=== PATIENT | female | born 1950 | race American Indian/Alaskan Native ===

== ENCOUNTER 2017-02-21 21:57 | Inpatient (IN) | payer MEDICAID, OTHER ==
[2017-02-21] MEDS ORDERED: Sodium Chloride 0.9% 1,000 ML IV STA ×2 (22:09→22:52)
[2017-02-21 22:26] LABS: BLOOD GAS HEMOGLOBIN 8.2 g/dL (11.7-17.4); CARBOXYHEMOGLOBIN 2.7 % (0.5-1.5); HHB 40.4 % (0-5); METHEMOGLOBIN 0.7 % (0.0-3.0); VENOUS BLOOD GAS BASE EXCESS 7.4 mmol/L (0.0-2.0); VENOUS BLOOD HGB O2 SAT 56.1 % (95.0-98.0); VENOUS BLOOD PH 7.39 (7.32-7.43)
[2017-02-21 22:40] LABS: BASO # 0.03 K/mm3 (0.0-2.0); BASO % 0.2 % (0.0-3.0); EOS # 0.1 (0.0-0.7); EOS % 0.3 % (1.5-5.0); GRAN # 15.02 (1.4-6.5); GRAN % 86.8 % (50.0-68.0); HEMATOCRIT 25.1 % (36.0-48.0); LYMPH # 1.1 (1.2-3.4); LYMPH % 6.1 % (22.0-35.0); MEAN CELL VOLUME 71.3 fl (80.0-105.0); MEAN CORPUSCULAR HEMOGLOBIN 21.9 pg (25.0-35.0); MEAN CORPUSCULAR HGB CONC 30.7 g/dl (31.0-37.0); MEAN PLATELET VOLUME 9.3 fl (7.0-11.0); MONO # 1.2 (0.1-0.6); MONO % 6.6 % (1.0-6.0); RED CELL DISTRIBUTION WIDTH 14.7 % (11.5-14.5); WHITE BLOOD COUNT 17.3 10^3/ul (4.5-11.0)
[2017-02-21 22:53] LABS: BILIRUBIN,TOTAL 0.5 mg/dL (0.2-1.3); POTASSIUM 4.3 mmol/L (3.6-5.0); TOTAL PROTEIN 8.3 g/dL (5.8-8.3)
[2017-02-21 22:54] LABS: CALCIUM 14.6 mg/dL (8.4-10.5)
[2017-02-21 22:55] LABS: TROPONIN I 0.3 ng/mL
[2017-02-21] MEDS ORDERED: Insulin Regular 1 UNITS/0.01 ML ML IV ONE (23:02)
--- NOTE | 2017-02-21 23:16 | ED PDOC ---
Arrival/HPI - General Chief Complaint: Altered Mental Status Time Seen by Provider: 02/21/17 22:08 Historian: Patient, Family (Son) EM Caveat: Altered Mental Status (Confusion ) - Critical Care Critical Care Minutes: Other (35 minutes ) - History of Present Illness Narrative History of Present Illness (Text): 02/21/17 22:20 66 year old female, whose past medical history includes diabetes, presents to the emergency department confused and complaining of abdominal pain. Patient's son reports she has not been feeling well for the past week and lives upstairs from him. He noticed that she was not acting herself and tonight was more confused. Patient is usual baseline A&O x3. Patient denies any fever, cough, nausea, vomiting, diarrhea, and any other complaints. HPI and ROS limited due to patient's Altered Mental Status of confusion. PMD: None Symptom Onset: Gradual Symptom Course: Unchanged Activities at Onset: Light Context: Home Past Medical History - Provider Review Nursing Documentation Reviewed: Yes - Infectious Disease Hx of Infectious Diseases: None - Cardiac Hx Hypertension: Yes - Endocrine/Metabolic Hx Diabetes Mellitus Type 1: Yes Hx Diabetes Mellitus Type 2: Yes - Psychiatric Hx Substance Use: No (unobtainable) - Anesthesia Hx Anesthesia: No Family/Social History - Physician Review Nursing Documentation Reviewed: Yes Family/Social History: No Known Family HX Smoking Status: Unknown If Ever Smoked Hx Alcohol Use: No (unobtainable) Hx Substance Use: No (unobtainable) Allergies/Home Meds Allergies/Adverse Reactions: Allergies Unobtainable Allergy (Verified 02/21/17 22:00) Home Medications: Home Meds Medication Instructions Recorded Confirmed Home Med [Home Med] 1 tab PO DAILY 02/21/17 02/21/17 Home Med [Home Med] 1 unit SC DAILY 02/21/17 02/21/17 Insulin Glargine,Hum.rec.anlog 1 unit SC DAILY 02/21/17 02/21/17 [Doreen Alexis] Review of Systems - Physician Review All systems were reviewed & negative as marked: Yes - Review of Systems Systems not reviewed;Unavailable: Altered Mental Status (Confusion) Constitutional: absent: Fevers, Other (Chills) Respiratory: absent: Cough Gastrointestinal: absent: Diarrhea, Nausea, Vomiting Physical Exam Vital Signs Reviewed: Yes Vital Signs Temp Pulse Resp BP Pulse Ox 02/22/17 02:21 96 H 18 111/69 97 02/22/17 02:10 118 H 138/72 02/22/17 01:11 99.9 F H 114 H 18 147/94 H 98 02/21/17 22:16 98.5 F 119 H 18 157/83 H 98 Temperature: Afebrile Blood Pressure: Hypertensive Pulse: Tachycardic Respiratory Rate: Normal Appearance: Positive for: Well-Appearing, Non-Toxic Pain Distress: None Mental Status: Positive for: Lethargic (follows some commands) Finger Stick Blood Glucose: 330 - Systems Exam Head: Present: Atraumatic, Normocephalic Pupils: Present: PERRL Extroacular Muscles: Present: EOMI Conjunctiva: Present: Normal Mouth: Present: Moist Mucous Membranes Neck: Present: Normal Range of Motion Respiratory/Chest: Present: Clear to Auscultation, Good Air Exchange. No: Respiratory Distress, Accessory Muscle Use Cardiovascular: Present: Tachycardic. No: Murmurs Abdomen: Present: Other (Questionable lower abdomal tenderness. Abdomen soft and warm. ). No: Distention Back: Present: Normal Inspection Upper Extremity: Present: Normal Inspection. No: Cyanosis, Edema Lower Extremity: Present: Normal Inspection. No: Edema Neurological: Present: Other (Non-focal, (+) Lethargic follows commands. ) Skin: Present: Other (Poor skin turgor) Psychiatric: Present: Alert, Normal Insight, Normal Concentration. No: Oriented x 3 Medical Decision Making ED Course and Treatment: 02/21/17 22: 20 Impression: 66 year old female presents complaining of abdominal pain. Patient was brought in for altered mental status. Plan: -- VBG -- CT Abd & Pelvis w/o IV Contrast -- CT Head w/o Contrast -- EKG -- Labs -- Chest X-ray -- Chest Two Views -- HumuLIN R -- IV Fluid -- Urine Culrine -- Urinalysis -- Reassess and disposition Progress Notes: EXAM: CT Head Without Intravenous Contrast Dictated and Authenticated by: Mary Coats MD 02/21/2017 11:35 PM IMPRESSION: No acute intracranial abnormality EXAM: CT Abdomen and Pelvis Without Intravenous Contras Dictated and Authenticated by: Mary Coats MD 02/21/2017 11:57 PM IMPRESSION: Left perirectal/pelvic mass contiguous with the lower uterus and bladder with obstruction of the distal left ureter, appearance is consistent with malignancy extension into the pelvic floor cannot be excluded; pelvic adenopathy; hepatic metastases; pulmonary metastases; gallstones CXR and Chest Two Views Impression: As read by me, NAD. Mass on her pelvic floor with metastases all over her abdomen, Likely rectal cancer metastasized. EKG shows Sinus Tachycardic at 123 BPM with T-wave flattening little depression on the V4,V5, V6. No ST Elevations. QTC 446. Interpreted by me. 02/22/17 00:11 Patient will be admitted for nonstemi electrolyte abnormality, metastatic rectal cancer, as well as hyperkalemia. 02/22/17 00:[address] Farmer Hospitalist, who is aware and agrees with the plan. Resident will be sent down. Patient started on Heprin. 02/22/17 00:34 Called and informed family of patient's current diagnosis and plan. Patient's family is aware and agrees with the plan. 02/22/17 02:21 Rectal exam showed trace heme positive, but no active bleeding. Will continue on Heprin. - Critical Care Critical Care Minutes: Other (35 minutes) - Lab Interpretations Lab Results: 02/21/17 22:15 02/21/17 22:15 Lab Results 02/22/17 00:00: Blood Type B POSITIVE, Antibody Screen Negative, Crossmatch See Detail, BBK History Checked No verified bt 02/21/17 22:15: pO2 28 L, ABG Carboxyhemoglobin 2.7 H, POC ABG HHb (Measured) 40.4 H, ABG Methemoglobin 0.7, VBG pH 7.39, VBG pCO2 55.0, VBG HCO3 33.3 H, VBG O2 Sat (Calc) 58.1, VBG Base Excess 7.4 H, VBG Hgb O2 Saturation 56.1 L, Hemoglobin 8.2 L 02/21/17 22:15: Sodium 135, Potassium 4.3, Chloride 92 L, Carbon Dioxide 34 H, Anion Gap 14, BUN 46 H, Creatinine 1.7 H, Est GFR ( Amer) 37, Est GFR ( Non-Af Amer) 30, Random Glucose 428 H*, Calcium 14.6 H*, Total Bilirubin 0.5, AST 64 H, ALT 69 H, Alkaline Phosphatase 243 H, Lactate Dehydrogenase 1883 H, Total Creatine Kinase 70, Troponin I 0.30 H*, Total Protein 8.3, Albumin 4.2, Globulin 4.1, Albumin/Globulin Ratio 1.0 L, Lipase 367 H 02/21/17 22:15: APTT 30.7 02/21/17 22:15: WBC 17.3 H, RBC 3.52, Hgb 7.7 L, Hct 25.1 L, MCV 71.3 L, MCH 21.9 L, MCHC 30.7 L, RDW 14.7 H, Plt Count 505 H, MPV 9.3, Gran % 86.8 H, Lymph % (Auto) 6.1 L, [place] % (Auto) 6.6 H, Eos % (Auto) 0.3 L, Baso % (Auto) 0.2, Gran # 15.02 H, Lymph # 1.1 L, [place] # 1.2 H, Eos # 0.1, Baso # 0.03 I have reviewed the lab results: Yes - RAD Interpretation Radiology Orders: 02/21/17 22:08 X-RAY [CHEST PORTABLE] [RAD] Stat 02/21/17 22:52 CHEST TWO VIEWS (PA/LAT) [RAD] Stat 02/21/17 22:53 ABD & PELVIS W/O PO OR IV CONT [CT] Stat HEAD W/O CONTRAST [CT] Stat - EKG Interpretation Interpreted by ED Physician: Yes Type: 12 lead EKG - Medication Orders Current Medication Orders: Acetaminophen (Tylenol 325mg Tab) 650 mg PO Q6H PRN PRN Reason: fever Last Admin: 02/23/17 19:17 Dose: 650 mg MAR Pain/Vitals Document 02/23/17 19:17 SENIOR BILLING CONSULTANT (Rec: 02/23/17 19:17 SENIOR BILLING CONSULTANT [id number]) Pain Reassessment Is This A Pain ReAssessment? No Sleep Is patient sleeping during reassessment? No Presence of Pain Presence of Pain No Atorvastatin Calcium (Lipitor) 40 mg PO DAILY [facility] Last Admin: 02/24/17 09:10 Dose: 40 mg Carvedilol (Coreg) 6.25 mg PO BID [facility] Last Admin: 02/24/17 09:10 Dose: 6.25 mg MAR Pulse and Blood Pressure Document 02/24/17 09:10 MV (Rec: 02/24/17 09:11 MV [place] [id number]) Blood Pressure Blood Pressure (100/60-150/90) 130/72 Ceftriaxone Sodium (Rocephin 1 Gram Ivpb) 1 gm in 100 mls @ 100 mls/hr IVPB DAILY [facility] PRN Reason: Protocol Last Admin: 02/24/17 09:09 Dose: 100 mls/hr eMAR Start Stop Document 02/24/17 09:09 MV (Rec: 02/24/17 09:10 MV [place] [id number]) Intravenous Solution Start Date 02/24/17 Start Time 09:09 End Date 02/24/17 End time 10:09 Total Infusion Time 60 Potassium Phosphate 15 mmole/ (Sodium Chloride) 1,005 mls @ 125 mls/hr IV .Q8H3M [facility] Last Admin: 02/24/17 13:07 Dose: 125 mls/hr eMAR Start Stop Document 02/24/17 13:07 MV (Rec: 02/24/17 13:07 MV [place] [id number]) Intravenous Solution Start Date 02/24/17 Start Time 13:07 End Date 02/24/17 End time 21:10 Total Infusion Time 483 Insulin Human Regular (Humulin R Low) 0 units SC ACHS [facility] PRN Reason: Protocol Last Admin: 02/24/17 12:29 Dose: 2 units MAR Blood Glucose Document 02/24/17 12:29 MV (Rec: 02/24/17 12:30 MV [place] [id number]) Blood Glucose Finger Stick Blood Glucose (70-120) 219 Subcutaneous Administrations Document 02/24/17 12:29 MV (Rec: 02/24/17 12:30 MV [place] [id number]) Charges for Administration # of Subcutaneous Administrations 1 Ondansetron HCl (Zofran Inj) 4 mg IVP Q6 PRN PRN Reason: Nausea/Vomiting Pantoprazole Sodium (Protonix Inj) 40 mg IVP DAILY [facility] Last Admin: 02/24/17 09:10 Dose: 40 mg IVP Administration Document 02/24/17 09:10 MV (Rec: 02/24/17 09:10 MV [place] [id number]) Charges for Administration # of IVP Administrations 1 Discontinued Medications Acetaminophen (Tylenol 650 Mg Supp) 650 mg STAT STA Stop: 02/22/17 11:40 Last Admin: 02/22/17 11:46 Dose: 650 mg MAR Pain/Vitals Document 02/22/17 11:46 MF (Rec: 02/22/17 11:47 MF [id number]) Pain Reassessment Is This A Pain ReAssessment? Yes Sleep Is patient sleeping during reassessment? Yes Presence of Pain Presence of Pain No Pain Scale Used Pain Scale Used T99.5 Vitals Temperature (97.6 F-99.6 F) 99.5 F Temperature Source Oral Acetaminophen (Tylenol 650 Mg Supp) 650 mg RC ONCE STA Stop: 02/22/17 22:59 Last Admin: 02/22/17 23:17 Dose: 650 mg MAR Pain/Vitals Document 02/22/17 23:17 VM (Rec: 02/22/17 23:19 VM [id number]) Pain Reassessment Is This A Pain ReAssessment? No Presence of Pain Presence of Pain No Vitals Temperature (97.6 F-99.6 F) 100.2 F Temperature Source Oral Aspirin (Ecotrin) 81 mg PO DAILY [facility] Last Admin: 02/22/17 10:52 Dose: Not Given Non-Admin Reason: NPO Clopidogrel Bisulfate (Plavix) 75 mg PO DAILY [facility] Last Admin: 02/22/17 01:50 Dose: 75 mg Heparin Sodium (Porcine) (Heparin) 4,000 units IV ONCE ONE PRN Reason: Protocol Stop: 02/22/17 00:08 Last Admin: 02/22/17 01:02 Dose: 4,000 units eMAR Start Stop Document 02/22/17 01:02 EQ (Rec: 02/22/17 01:03 EQ [email or web address] Intravenous Solution Start Date 02/22/17 Start Time 01:03 MAR aPTT Document 02/22/17 01:02 EQ (Rec: 02/22/17 01:03 EQ [email or web address] aPTT aPTT (secs) 30.7 Sodium Chloride (Sodium Chloride 0.9%) 1,000 mls @ 999 mls/hr IV .Q1H1M STA Stop: 02/21/17 23:09 Last Admin: 02/21/17 22:23 Dose: 999 mls/hr eMAR Start Stop Document 02/21/17 22:23 EQ (Rec: 02/21/17 22:23 EQ [email or web address] Intravenous Solution Start Date 02/21/17 Start Time 22:23 Sodium Chloride (Sodium Chloride 0.9%) 1,000 mls @ 999 mls/hr IV .Q1H1M STA Stop: 02/21/17 23:52 Last Admin: 02/21/17 23:47 Dose: 999 mls/hr eMAR Start Stop Document 02/21/17 23:47 EQ (Rec: 02/21/17 23:47 EQ [email or web address] Intravenous Solution Start Date 02/21/17 Start Time 23:47 Sodium Chloride (Sodium Chloride 0.9%) 1,000 mls @ 100 mls/hr IV .Q10H JUANA Last Admin: 02/22/17 03:00 Dose: 100 mls/hr eMAR Start Stop Document 02/22/17 03:00 SWE (Rec: 02/22/17 06:30 SWE [id number]) Intravenous Solution Start Date 02/22/17 Start Time 03:00 End Date 02/22/17 Heparin Sodium/Dextrose (Heparin 25,000 Units/250ml In D5w) 25,000 units in 250 mls @ 7.348 mls/hr IV .Q24H JUANA; 12 UNITS/KG/HR PRN Reason: Protocol Heparin Sodium/Sodium Chloride (Heparin 33952 Units/250ml 1/2 Normal Saline) 25 ,000 units in 250 mls @ 7.348 mls/hr IV .Q24H JUANA; 12 UNITS/KG/HR PRN Reason: Protocol Last Admin: 02/22/17 02:12 Dose: 12 units/kg/hr, 7.348 mls/hr eMAR Start Stop Document 02/22/17 02:12 EQ (Rec: 02/22/17 02:12 EQ [email or web address] Intravenous Solution Start Date 02/22/17 Start Time 02:12 MAR aPTT Document 02/22/17 02:12 EQ (Rec: 02/22/17 02:12 EQ [email or web address] aPTT aPTT (secs) 30.4 Titration Intervention Document 02/22/17 02:12 EQ (Rec: 02/22/17 02:12 EQ [email or web address] Titration Intake Waste Amount 0 Container Volume 250 Titration Dosing Titration Dose 12 IV Rate 7.348 Intake/Decrease Started Potassium Chloride 10 meq/ (Sodium Chloride) 1,005 mls @ 100 mls/hr IV .Q10H3M [facility] Last Admin: 02/22/17 23:52 Dose: 100 mls/hr eMAR Start Stop Document 02/22/17 23:52 (Rec: 02/22/17 23:52 [id number]) Intravenous Solution Start Date 02/22/17 Start Time 23:52 Pamidronate Disodium 60 mg/ (Sodium Chloride) 510 mls @ 127.5 mls/hr IVPB ONCE ONE Stop: 02/22/17 12:54 Last Admin: 02/22/17 14:53 Dose: 127.5 mls/hr Iron Sucrose 200 mg/ Sodium (Chloride) 110 mls @ 110 mls/hr IVPB MWF ONE Stop: 02/22/17 09:55 Last Admin: 02/22/17 10:53 Dose: Potassium Chloride 10 meq/ (Sodium Chloride) 1,005 mls @ 150 mls/hr IV .Q6H42M [facility] Last Admin: 02/23/17 08:40 Dose: 150 mls/hr eMAR Start Stop Document 02/23/17 08:40 SENIOR BILLING CONSULTANT (Rec: 02/23/17 08:41 SENIOR BILLING CONSULTANT [id number]) Intravenous Solution Start Date 02/23/17 Start Time 08:30 Potassium Phosphate 15 mmole/ (Sodium Chloride) 255 mls @ 42.5 mls/hr IVPB ONCE ONE Stop: 02/23/17 16:44 Last Admin: 02/23/17 12:41 Dose: 42.5 mls/hr eMAR Start Stop Document 02/23/17 12:41 SENIOR BILLING CONSULTANT (Rec: 02/23/17 12:41 SENIOR BILLING CONSULTANT [id number]) Intravenous Solution Start Date 02/23/17 Start Time 12:40 Magnesium Sulfate 2 gm/ Sodium (Chloride) 104 mls @ 102 mls/hr IV ONCE ONE Stop: 02/23/17 12:27 Last Admin: 02/23/17 13:36 Dose: 102 mls/hr eMAR Start Stop Document 02/23/17 13:36 SENIOR BILLING CONSULTANT (Rec: 02/23/17 13:36 SENIOR BILLING CONSULTANT [id number]) Intravenous Solution Start Date 02/23/17 Start Time 13:35 Insulin Human Lispro (Humalog Med) 0 units SC [facility] PRN Reason: Protocol Last Admin: 02/22/17 08:48 Dose: Insulin Human Regular (Humulin R) 10 units IV ONCE ONE Stop: 02/21/17 23:03 Last Admin: 02/21/17 23:47 Dose: 10 units eMAR Start Stop Document 02/21/17 23:47 EQ (Rec: 02/21/17 23:47 EQ [email or web address] Intravenous Solution Start Date 02/21/17 Start Time 23:47 MAR Blood Glucose Document 02/21/17 23:47 EQ (Rec: 02/21/17 23:47 EQ [email or web address] Blood Glucose Finger Stick Blood Glucose (70-120) 330 Metoprolol Tartrate (Lopressor) 25 mg PO BID STA Stop: 02/22/17 01:06 Last Admin: 02/22/17 01:50 Dose: Metoprolol Tartrate (Lopressor) 5 mg IVP STAT STA Stop: 02/22/17 01:48 Last Admin: 02/22/17 02:10 Dose: 5 mg IVP Administration Document 02/22/17 02:10 EQ (Rec: 02/22/17 02:11 EQ [email or web address] Charges for Administration # of IVP Administrations 1 JUN Pulse and Blood Pressure Document 02/22/17 02:10 EQ (Rec: 02/22/17 02:11 EQ [email or web address] Pulse Pulse Rate (60-90) 118 Blood Pressure Blood Pressure (100/60-150/90) 138/72 Potassium Chloride (Potassium Chloride Oral Soln) 40 meq PO ONCE ONE Stop: 02/22/17 07:51 Last Admin: 02/22/17 10:53 Dose: Not Given Non-Admin Reason: NPO - Scribe Statement The provider has reviewed the documentation as recorded by the Jen Calderon Provider Scribe Attestation: All medical record entries made by the Scribismael were at my direction and personally dictated by me. I have reviewed the chart and agree that the record accurately reflects my personal performance of the history, physical exam, medical decision making, and the department course for this patient. I have also personally directed, reviewed, and agree with the discharge instructions and disposition. Disposition/Present on Arrival - Present on Arrival Any Indicators Present on Arrival: Yes History of DVT/PE: No History of Uncontrolled Diabetes: Yes Urinary Catheter: No History of Decub. Ulcer: No History Surgical Site Infection Following: None - Disposition Have Diagnosis and Disposition been Completed?: Yes Diagnosis: Toxic metabolic encephalopathy Disposition: HOSPITALIZED Disposition Time: 04:00 Patient Plan: Admission Patient Problems: Current Active Problems Problem Status Onset Hypercalcemia Acute NSTEMI (non-ST elevated myocardial infarction) Acute Toxic metabolic encephalopathy Acute Condition: FAIR
--- NOTE | 2017-02-21 23:35 | CT ---
EXAM: CT Head Without Intravenous Contrast EXAM DATE/TIME: 02/21/2017 10:53 PM CLINICAL HISTORY: 66 years old, female; Signs and symptoms; Altered mental status/memory loss; Age related cognitive decline; Additional info: AMS TECHNIQUE: Axial computed tomography images of the head/brain without intravenous contrast. All CT scans at this facility use one or more dose reduction techniques, viz.: automated exposure control; ma/kV adjustment per patient size (including targeted exams where dose is matched to indication; i.e. head); or iterative reconstruction technique. COMPARISON: There are no prior studies for comparison. FINDINGS: Brain: There is mild dilatation of ventricles with compensatory dilatation of the left lateral ventricle. There is no midline shift. There is mild prominence of sulci and gyri. There is decreased attenuation in periventricular white matter. There are no focal masses. There are no focal hemorrhages. Tinoco-white differentiation is visualized. Ventricles: See above. Bones: Cranial vault is intact. Soft tissues: unremarkable Sinuses: There is no acute sinusitis. Ears and mastoids: Middle ears and mastoids are unremarkable. Orbits: Orbital contents are unremarkable. IMPRESSION: No acute intracranial abnormality
--- NOTE | 2017-02-21 23:57 | CT ---
EXAM: CT Abdomen and Pelvis Without Intravenous Contrast EXAM DATE/TIME: 02/21/2017 10:53 PM CLINICAL HISTORY: 66 years old, female; Pain; Abdominal pain; Acute; Additional info: Diffuse abdominal pain TECHNIQUE: Axial computed tomography images of the abdomen and pelvis without intravenous contrast. All CT scans at this facility use one or more dose reduction techniques, viz.: automated exposure control; ma/kV adjustment per patient size (including targeted exams where dose is matched to indication; i.e. head); or iterative reconstruction technique. MIP reconstructed images were created and reviewed. Coronal and sagittal reformatted images were created and reviewed. COMPARISON: There are no prior studies for comparison. FINDINGS: Artifacts: Streak artifact from the patient's hands and arms degrades image quality. Limitations: Evaluation is limited by lack of oral and intravenous contrast material Lower thorax: Heart size is normal. There is no pericardial effusion. There are multiple bilateral pulmonary nodules too numerous to count. There is dependent atelectasis. There are no effusions. ABDOMEN: Liver: The liver is enlarged. There are multiple hepatic masses to numerous to count. Gallbladder and bile ducts: Gallbladder is collapsed with calcified stones.There is mild prominence of the common duct. Pancreas: unremarkable Spleen: unremarkable Adrenals: There is nodular thickening of the adrenals. Kidneys and ureters: Right kidney and ureter are unremarkable. There is left pelvocaliectasis and ureterectasis. Dilated left ureter can be traced to a left pelvic mass Stomach and bowel: Stomach is incompletely distended. Rotation is normal. There is no small bowel obstruction. Small bowel is mildly distended with fluid and air. Ileocecal region is unremarkable.Colon is incompletely distended which limits evaluation. There is scattered diverticulosis there is a left pelvic mass contiguous with the rectum. Appendix: See stomach and bowel PELVIS: Bladder: Bladder is partially distended. There is mild mass effect on the base of the bladder on the left. Reproductive: Fundus of the uterus and adnexal regions are unremarkable. Subperitoneal space: There is inflammation and edema in the left pelvis and presacral space. There is asymmetry of the muscles of the pelvic floor. ABDOMEN and PELVIS: Intraperitoneal space: There is no free air or free fluid. Bones/joints: There are degenerative changes in the osseus structures. There are degenerative changes in the osseus structures. Soft tissues: Streak artifact limits evaluation of the pelvis. There is a mass in the left lower pelvis contiguous with the lower uterus and rectum. Mass appears to extend inferior to the base of the bladder on the left. There may be extension into the muscles of the left pelvic floor. There is a 3 x 1.8 cm hyperdense nodule in the left perineum Vasculature: There are vascular calcifications. Lymph nodes: There is left pelvic adenopathy. IMPRESSION: Left perirectal/pelvic mass contiguous with the lower uterus and bladder with obstruction of the distal left ureter, appearance is consistent with malignancy extension into the pelvic floor cannot be excluded; pelvic adenopathy; hepatic metastases; pulmonary metastases; gallstones Additional findings as described above.
[2017-02-22 00:50] LABS: PH,URINE 5.5 (4.7-8.0); URINE BILIRUBIN NEGATIVE (NEGATIVE); URINE BLOOD TRACE-INTACT (NEGATIVE); URINE GLUCOSE (UA) 500 mg/dL (NEGATIVE); URINE KETONE TRACE mg/dL (NEGATIVE); URINE LEUKOCYTE ESTERASE NEGATIVE Leu/uL (NEGATIVE); URINE PROTEIN 30 mg/dL (<30 mg/dL); URINE UROBILINOGEN 0.2 E.U./dL (<1 E.U./dL)
[2017-02-22 00:52] LABS: URINE APPEARANCE SL CLOUDY (CLEAR); URINE COLOR YELLOW (YELLOW)
[2017-02-22 01:14] LABS: URINE BACTERIA FEW (NEG); URINE EPITHELIAL CELLS 0 - 2 /hpf (0-5); URINE RBC 0 - 2 /hpf (0-2); URINE WBC 0 - 2 /hpf (0-6)
[2017-02-22] MEDS ORDERED: Heparin25000 units/250ml 1/2NS 25,000 UNITS/250 ML BAG IV SCH ×2 (01:15→01:47)
[2017-02-22] MEDS ORDERED: Sodium Chloride 0.9% 1,000 ML IV SCH (01:15)
[2017-02-22 01:42] VITALS: BMI 24.7
[2017-02-22] MEDS ORDERED: Heparin 25,000units in D5W/250 ML BAG IV SCH (01:45)
[2017-02-22] MEDS ORDERED: Metoprolol 1 mg/ml Inj IVP STA (01:47)
--- NOTE | 2017-02-22 02:02 | CP.PCM.CON ---
<Medardo Mcdowell - Last Filed: 02/22/17 02:43> History of Present Illness - History of Present Illness History of Present Illness: 66 year old female with unknown past medical history presents to the ED with AMS and lethargy. Per ED Nurse, the patient lives in the basement of a house with her son. 2 weeks ago patient went on vacation, and before leaving checked on his mother she was doing okay. After he returned today, the patient seemed to not be acting like her normal self. Unable to obtain a complete HPI due to AMS and lethargy. PMH: unable to obtain PSH: unable to obtain Allergies: unobtainable Medications: unable to obtain Social: unable to obtain Family History: unable to obtain Review of Systems - Review of Systems Review of Systems: unable to obtain ROS due to AMS Past Patient History - Infectious Disease Hx of Infectious Diseases: None - Past Social History Smoking Status: Unknown If Ever Smoked - CARDIAC Hx Hypertension: Yes - ENDOCRINE/METABOLIC Hx Diabetes Mellitus Type 1: Yes Hx Diabetes Mellitus Type 2: Yes - PSYCHIATRIC Hx Substance Use: No (unobtainable) - SURGICAL HISTORY Hx Surgeries: No - ANESTHESIA Hx Anesthesia: No Meds Allergies/Adverse Reactions: Allergies Allergy/AdvReac Type Severity Reaction Status Date / Time Unobtainable Allergy Verified 02/21/17 22:00 - Medications Medications: Current Medications Atorvastatin Calcium (Lipitor) 40 mg PO DAILY [facility] Last Admin: 02/22/17 01:50 Dose: 40 mg Clopidogrel Bisulfate (Plavix) 75 mg PO DAILY [facility] Last Admin: 02/22/17 01:50 Dose: 75 mg Sodium Chloride (Sodium Chloride 0.9%) 1,000 mls @ 100 mls/hr IV .Q10H [facility] Heparin Sodium/Sodium Chloride (Heparin 60539 Units/250ml 1/2 Normal Saline) 25 ,000 units in 250 mls @ 7.348 mls/hr IV .Q24H JUANA; 12 UNITS/KG/HR PRN Reason: Protocol Insulin Human Lispro (Humalog Med) 0 units SC ACHS JUANA PRN Reason: Protocol Ondansetron HCl (Zofran Inj) 4 mg IVP Q6 PRN PRN Reason: Nausea/Vomiting Pantoprazole Sodium (Protonix Inj) 40 mg IVP DAILY [facility] Physical Exam - Constitutional Appears: Older Than Stated Age, Other Additional comments: Altered, lethargic - Head Exam Head Exam: ATRAUMATIC, NORMAL INSPECTION, NORMOCEPHALIC - ENT Exam ENT Exam: Mucous Membranes Moist - Neck Exam Neck exam: Positive for: Normal Inspection - Respiratory Exam Respiratory Exam: NORMAL BREATHING PATTERN - Cardiovascular Exam Cardiovascular Exam: Tachycardia, +S1, +S2 - GI/Abdominal Exam GI & Abdominal Exam: absent: Distended, Tenderness - Extremities Exam Extremities exam: Positive for: pedal pulses present. Negative for: pedal edema - Neurological Exam Neurological exam: Altered Results - Vital Signs Recent Vital Signs: Last Vital Signs Temp 99.9 F H 02/22/17 01:11 Pulse 114 H 02/22/17 01:11 Resp 18 02/22/17 01:11 BP 147/94 H 02/22/17 01:11 Pulse Ox 98 02/22/17 01:11 - Labs Result Diagrams: 02/21/17 22:15 02/21/17 22:15 Labs: Laboratory Results - last 24 hr 02/22/17 00:30 Urine Color Yellow Urine Appearance Sl cloudy Urine pH 5.5 Ur Specific [place] 1.025 Urine Protein 30 H Urine Glucose (UA) 500 H Urine Ketones Trace H Urine Blood Trace-intact H Urine Nitrate Negative Urine Bilirubin Negative Urine Urobilinogen 0.2 Ur Leukocyte Esterase Negative Urine RBC 0 - 2 Urine WBC 0 - 2 Ur Epithelial Cells 0 - 2 Urine Bacteria Few Assessment & Plan - Assessment and Plan (Free Text) Assessment: 66 year old female with unknown past medical history presents to the ED with AMS and lethargy. 66 year old female with unknown past medical history presents to the ED with AMS and lethargy. Per ED Nurse, the patient lives in the basement of a house with her son. 2 weeks ago patient went on vacation, and before leaving checked on his mother she was doing okay. After he returned today , the patient seemed to not be acting like her normal self. Unable to obtain a complete HPI due to AMS and lethargy. Patient found to have an NSTEMI, for which she is being appropriately treated for. In addition, patient seems to be Altered and had hyperglycemia, for which she is being treated for. Patient at this time does not require aggressive care in the ICU and will be monitored in telemetry. Please reconsult if clinical condition worsens. <Chao Howe - Last Filed: 02/22/17 07:33> Meds - Medications Medications: Current Medications Aspirin (Ecotrin) 81 mg PO DAILY [facility] Last Admin: 02/22/17 06:28 Dose: Not Given Atorvastatin Calcium (Lipitor) 40 mg PO DAILY [facility] Last Admin: 02/22/17 01:50 Dose: 40 mg Clopidogrel Bisulfate (Plavix) 75 mg PO DAILY [facility] Last Admin: 02/22/17 01:50 Dose: 75 mg Sodium Chloride (Sodium Chloride 0.9%) 1,000 mls @ 100 mls/hr IV .Q10H [facility] Last Admin: 02/22/17 03:00 Dose: 100 mls/hr Heparin Sodium/Sodium Chloride (Heparin 30747 Units/250ml 1/2 Normal Saline) 25 ,000 units in 250 mls @ 7.348 mls/hr IV .Q24H [facility]; 12 UNITS/KG/HR PRN Reason: Protocol Last Admin: 02/22/17 02:12 Dose: 12 units/kg/hr, 7.348 mls/hr Insulin Human Lispro (Humalog Med) [address] [facility] PRN Reason: Protocol Insulin Human Regular (Humulin R Low) [address] [facility] PRN Reason: Protocol Ondansetron HCl (Zofran Inj) 4 mg IVP Q6 PRN PRN Reason: Nausea/Vomiting Pantoprazole Sodium (Protonix Inj) 40 mg IVP DAILY [facility] Results - Vital Signs Recent Vital Signs: Last Vital Signs Temp 98.8 F 02/22/17 06:00 Pulse 104 H 02/22/17 06:00 Resp 18 02/22/17 06:00 BP 137/72 02/22/17 06:00 Pulse Ox 99 02/22/17 06:00 - Labs Result Diagrams: 02/22/17 02:45 02/22/17 02:45 Labs: Laboratory Results - last 24 hr 02/22/17 02/22/17 02/22/17 00:30 02:45 02:45 WBC 17.2 H RBC 3.17 L Hgb 7.1 L Hct 22.7 L MCV 71.6 L MCH 22.4 L MCHC 31.3 RDW 14.6 H Plt Count 458 H MPV 9.8 Gran % 86.3 H Lymph % (Auto) 6.6 L Gage % (Auto) 6.4 H Eos % (Auto) 0.6 L Baso % (Auto) 0.1 Gran # 14.81 H Lymph # 1.1 L Gage # 1.1 H Eos # 0.1 Baso # 0.02 Sodium 138 Potassium 3.5 L Chloride 98 Carbon Dioxide 31 Anion Gap 12 BUN 41 H Creatinine 1.5 H Est GFR ( Amer) 42 Est GFR (Non-Af Amer) 35 Random Glucose 236 H Calcium 13.8 H* Iron TIBC % Saturation Total Bilirubin 0.5 Direct Bilirubin 0.6 H AST 82 H D ALT 57 H Alkaline Phosphatase 216 H Ammonia Troponin I 0.30 H* Total Protein 7.5 Albumin 3.8 Globulin 3.7 Albumin/Globulin Ratio 1.0 L Triglycerides 119 Cholesterol 146 LDL Cholesterol Direct 48 HDL Cholesterol 57 Amylase 43 Lipase 411 H TSH 3rd Generation Urine Color Yellow Urine Appearance Sl cloudy Urine pH 5.5 Ur Specific [place] 1.025 Urine Protein 30 H Urine Glucose (UA) 500 H Urine Ketones Trace H Urine Blood Trace-intact H Urine Nitrate Negative Urine Bilirubin Negative Urine Urobilinogen 0.2 Ur Leukocyte Esterase Negative Urine RBC 0 - 2 Urine WBC 0 - 2 Ur Epithelial Cells 0 - 2 Urine Bacteria Few Blood Type Confirm 02/22/17 02/22/17 02/22/17 02:45 02:45 02:45 WBC RBC Hgb Hct MCV MCH MCHC RDW Plt Count MPV Gran % Lymph % (Auto) Gage % (Auto) Eos % (Auto) Baso % (Auto) Gran # Lymph # Gage # Eos # Baso # Sodium Potassium Chloride Carbon Dioxide Anion Gap BUN Creatinine Est GFR ( Amer) Est GFR (Non-Af Amer) Random Glucose Calcium Iron < 10 L TIBC 221 L % Saturation 4.5 L Total Bilirubin Direct Bilirubin AST ALT Alkaline Phosphatase Ammonia < 9 L Troponin I Total Protein Albumin Globulin Albumin/Globulin Ratio Triglycerides Cholesterol LDL Cholesterol Direct HDL Cholesterol Amylase Lipase TSH 3rd Generation 2.18 Urine Color Urine Appearance Urine pH Ur Specific [place] Urine Protein Urine Glucose (UA) Urine Ketones Urine Blood Urine Nitrate Urine Bilirubin Urine Urobilinogen Ur Leukocyte Esterase Urine RBC Urine WBC Ur Epithelial Cells Urine Bacteria Blood Type Confirm 02/22/17 02:56 WBC RBC Hgb Hct MCV MCH MCHC RDW Plt Count MPV Gran % Lymph % (Auto) Gage % (Auto) Eos % (Auto) Baso % (Auto) Gran # Lymph # Gage # Eos # Baso # Sodium Potassium Chloride Carbon Dioxide Anion Gap BUN Creatinine Est GFR ( Amer) Est GFR (Non-Af Amer) Random Glucose Calcium Iron TIBC % Saturation Total Bilirubin Direct Bilirubin AST ALT Alkaline Phosphatase Ammonia Troponin I Total Protein Albumin Globulin Albumin/Globulin Ratio Triglycerides Cholesterol LDL Cholesterol Direct HDL Cholesterol Amylase Lipase TSH 3rd Generation Urine Color Urine Appearance Urine pH Ur Specific [place] Urine Protein Urine Glucose (UA) Urine Ketones Urine Blood Urine Nitrate Urine Bilirubin Urine Urobilinogen Ur Leukocyte Esterase Urine RBC Urine WBC Ur Epithelial Cells Urine Bacteria Blood Type Confirm B POSITIVE Attending/Attestation - Attestation I have personally seen and examined this patient.: Yes I have fully participated in the care of the patient.: Yes I have reviewed all pertinent clinical information: Yes Notes (Text): 02/22/17 07:30 I agree with the above note by the resident with the addition/exception of the followin66 y/o female with an unknown PMHx presented to the ED, brought in by her son due to altered mentation. The son was not present in the ED at the time of the examination and the patient was offering no complaints. She was disoriented and slightly lethargic, however was maintaining adequate hemodynamics in terms of her blood pressure, heart rate, respirations and oxygen saturation. 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 She will need an oncology evaluation to determine if she is even a candidate for any palliative chemotherapy at this point and a further workup for her cause of altered mentation, however she does not require placement in the ICU at this time. She will be admitted to the telemetry floor by the house doctor.
--- NOTE | 2017-02-22 02:02 | CP.PCM.HP ---
Addendum entered and electronically signed by Medardo Mcdowell DO 02/22/17 02:42: HPI: 66 year old female with unknown past medical history presents to the ED with AMS and lethargy. Per ED Nurse, the patient lives in the basement of a house with her son. 2 weeks ago patient went on vacation, and before leaving checked on his mother she was doing okay. After he returned today, the patient seemed to not be acting like her normal self. Unable to obtain a complete HPI DUE to AMS and lethargy. Original Note: <Medardo Mcdowell - Last Filed: 02/22/17 02:39> History of Present Illness - History of Present Illness History of Present Illness: 66 year old female with unknown past medical history presents to the ED with AMS and lethargy. Per ED Nurse, the patient lives in the basement of a house with her son. 2 weeks ago patient went on vacation, and before leaving checked on his mother she was doing okay. After he returned today, the patient seemed to not be acting like her normal self. Unable to obtain a complete HPI to AMS and lethargy. PMH: unable to obtain PSH: unable to obtain Allergies: unobtainable Medications: unable to obtain Social: unable to obtain Family History: unable to obtain Present on Admission - Present on Admission Any Indicators Present on Admission: No Review of Systems - Review of Systems Systems not reviewed;Unavailable: Altered Mental Status, Other Review of Systems: unable to obtain a full ROS due to AMS Past Patient History - Infectious Disease Hx of Infectious Diseases: None - Past Social History Smoking Status: Unknown If Ever Smoked - CARDIAC Hx Hypertension: Yes - ENDOCRINE/METABOLIC Hx Diabetes Mellitus Type 1: Yes Hx Diabetes Mellitus Type 2: Yes - PSYCHIATRIC Hx Substance Use: No (unobtainable) - SURGICAL HISTORY Hx Surgeries: No - ANESTHESIA Hx Anesthesia: No Meds Allergies/Adverse Reactions: Allergies Allergy/AdvReac Type Severity Reaction Status Date / Time Unobtainable Allergy Verified 02/21/17 22:00 Physical Exam - Constitutional Appears: No Acute Distress, Older Than Stated Age Additional comments: appears lethargic - Head Exam Head Exam: ATRAUMATIC, NORMAL INSPECTION, NORMOCEPHALIC - Eye Exam Eye Exam: Normal appearance - ENT Exam ENT Exam: Mucous Membranes Moist, Normal Exam - Neck Exam Neck exam: Positive for: Normal Inspection - Respiratory Exam Respiratory Exam: Clear to Auscultation Bilateral, NORMAL BREATHING PATTERN - Cardiovascular Exam Cardiovascular Exam: Tachycardia, +S1, +S2 - GI/Abdominal Exam GI & Abdominal Exam: absent: Distended, Tenderness - Extremities Exam Extremities exam: Positive for: pedal pulses present. Negative for: pedal edema - Neurological Exam Neurological exam: Altered Results - Vital Signs Recent Vital Signs: Last Vital Signs Temp 99.9 F H 02/22/17 01:11 Pulse 114 H 02/22/17 01:11 Resp 18 02/22/17 01:11 BP 147/94 H 02/22/17 01:11 Pulse Ox 98 02/22/17 01:11 - Labs Result Diagrams: 02/21/17 22:15 02/21/17 22:15 Labs: Laboratory Results - last 24 hr 02/22/17 00:30 Urine Color Yellow Urine Appearance Sl cloudy Urine pH 5.5 Ur Specific [place] 1.025 Urine Protein 30 H Urine Glucose (UA) 500 H Urine Ketones Trace H Urine Blood Trace-intact H Urine Nitrate Negative Urine Bilirubin Negative Urine Urobilinogen 0.2 Ur Leukocyte Esterase Negative Urine RBC 0 - 2 Urine WBC 0 - 2 Ur Epithelial Cells 0 - 2 Urine Bacteria Few Assessment & Plan - Assessment and Plan (Free Text) Assessment: 66 year old female with unknown past medical history presents to the ED with AMS and lethargy. Plan: 1. NSTEMI -EKG ordered and obtained, Sinus Tachycardic at [address] Elevations, pending official read -CBC ordered and reviewed -initial troponin .3, will follow serially -EKG in AM -Heparin given in Ed -Started on heparin Drip -Plavix -Aspirin -Lipitor -Metoprolol -A1C pending -TSH pending -Lipid Panel Pending -Cardiology consulted, Rosario, follow recs -will monitor 2. AMS -CT Head neagtive for acute changes -Ammonia level pending 3. 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 Jarvis Consulted -GI consulted, Wally, follow recs 4. Leukocytosis -WBC 17.3 -Temp 99.9 -ID consulted, Dr. OLIVARES, will follow up recs -follow up urine and blood cultures 5. Hyperglycemia -Glucose initially 428 -no initial signs of DKA -Insulin given in ED -ISS sliding scale medium, with accuchecks -A1C pending -will continue to monitor -IV fluids NS@100 6. Hypercalcemia-possibly secondary to cancer -Ca: 14.6 -IV fluids NS@100, continue to monitor 7. CKD v NOHEMI -BUN: 46 Cr: 1.7 -Fluids -Nephrology consulted, Elissa, will follow recs -avoid nephrotoxic medications 8. Anemia -Hgb 7.7 -Type and Screen -will follow daily with CBC 9. Trasaminitis -likely secondary to liver mets -liver panel follow up -will continue to monitor 10. Lipase Elevated -367 -willl repeat in AM GI/DVT prophylaxis -protonix -Heparin <Arden Farmer - Last Filed: 02/22/17 03:27> Results - Vital Signs Recent Vital Signs: Last Vital Signs Temp 99.9 F H 02/22/17 01:11 Pulse 96 H 02/22/17 02:21 Resp 18 02/22/17 02:21 BP 111/69 02/22/17 02:21 Pulse Ox 97 02/22/17 02:21 - Labs Result Diagrams: 02/21/17 22:15 02/21/17 22:15 Labs: Laboratory Results - last 24 hr 02/22/17 02/22/17 02/22/17 00:30 02:45 02:45 Ammonia < 9 L LDL Cholesterol Direct 48 Urine Color Yellow Urine Appearance Sl cloudy Urine pH 5.5 Ur Specific [place] 1.025 Urine Protein 30 H Urine Glucose (UA) 500 H Urine Ketones Trace H Urine Blood Trace-intact H Urine Nitrate Negative Urine Bilirubin Negative Urine Urobilinogen 0.2 Ur Leukocyte Esterase Negative Urine RBC 0 - 2 Urine WBC 0 - 2 Ur Epithelial Cells 0 - 2 Urine Bacteria Few Attending/Attestation - Attestation I have personally seen and examined this patient.: Yes I have fully participated in the care of the patient.: Yes I have reviewed all pertinent clinical information: Yes Notes (Text): 02/22/17 03:26 Agree with history, physical examination ,assessment and plan. Patient was seen when she was in the ER.
[2017-02-22 03:22] LABS: BASO # 0.02 K/mm3 (0.0-2.0); BASO % 0.1 % (0.0-3.0); EOS # 0.1 (0.0-0.7); EOS % 0.6 % (1.5-5.0); GRAN # 14.81 (1.4-6.5); GRAN % 86.3 % (50.0-68.0); LYMPH # 1.1 (1.2-3.4); LYMPH % 6.6 % (22.0-35.0); MEAN CELL VOLUME 71.6 fl (80.0-105.0); MEAN CORPUSCULAR HEMOGLOBIN 22.4 pg (25.0-35.0); MEAN CORPUSCULAR HGB CONC 31.3 g/dl (31.0-37.0); MEAN PLATELET VOLUME 9.8 fl (7.0-11.0); MONO # 1.1 (0.1-0.6); MONO % 6.4 % (1.0-6.0); RED CELL DISTRIBUTION WIDTH 14.6 % (11.5-14.5); WHITE BLOOD COUNT 17.2 10^3/ul (4.5-11.0)
[2017-02-22 03:35] LABS: HEMATOCRIT 22.7 % (36.0-48.0)
[2017-02-22 03:41] LABS: BILIRUBIN,TOTAL 0.5 mg/dL (0.2-1.3); CALCIUM 13.8 mg/dL (8.4-10.5); POTASSIUM 3.5 mmol/L (3.6-5.0); TOTAL PROTEIN 7.5 g/dL (5.8-8.3); TROPONIN I 0.3 ng/mL
[2017-02-22 03:42] LABS: BILIRUBIN,DIRECT 0.6 mg/dL (0.0-0.4)
[2017-02-22 04:04] LABS: IRON < 10 ug/dL (45-180)
[2017-02-22] MEDS ORDERED: Insulin Lispro (humaLOG) MEDIUM Coverage SC SCH (07:30)
[2017-02-22] MEDS ORDERED: Potassium Chloride 40 mEq/30 ml LIQ UD PO ONE (07:50)
[2017-02-22] MEDS: Insulin Reg-LOW-Coverage SC SCH ×4 (08:00→21:57)
[2017-02-22 08:11] LABS: MAGNESIUM 1.9 mg/dL (1.7-2.2); PHOSPHOROUS 1.6 mg/dL (2.5-4.5)
--- NOTE | 2017-02-22 09:18 | CP.PCM.PN ---
<Harpal Brizuela - Last Filed: 02/22/17 17:01> Subjective - Date & Time of Evaluation Date of Evaluation: 02/22/17 Time of Evaluation: 07:45 - Subjective Subjective: Patient seen and examined at bedside immobile, verbal, oriented to place stating she was at the hospital and self. 1 hour later patient was seen again immobile, non verbal, not oriented to place or self. 3 hours later patient was verbal in the first minute of the encounter stating "my bottom hurts." Patient was also able to freely move her legs during the third encounter but was not able to speak. Patient's son Fernando Elizondo was contacted at [phone] for further information regarding his mother. As per patient's son Fernando, patient is living in a 2 family house with her son and his family. She lives in the basement. 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 When she works she will normally go away for a month or two and come back to her and her son's house for the weekend. As per son she hasn't worked in a month and would normally be in her room and not let him in to her side of the house; states his mother is a very private individual. As of late however he states his did mother complain of stomach pain and lack of appetite. This past Friday evening noticed she couldn't speak well and though maybe she was stressed out because her children form [place] don't have a place to stay and she is currently in the process of bringing them to the . Patient was last seen walking around this past Friday. Friday evening when son returned from [place] after a week he went downstairs to check on patient because he was calling her all day Friday and she was not answering her cell phone, so he went downstairs and saw her on the floor and she told him to help her get on the bed, he assisted her. Told her he would call 911 she said no , make me some karen tea. Made karen tea and soup which patient was able to use spoon to feed herself. she was in her bed and said to get her some karen tea again and stated said she wasn't hungry. According to son, patient was looking weak didn't want him to call 911. She didn't have any clothes on the bottom half of her body, said she wanted to use the bathroom with being assisted..when she was sitting on the toilet and got off son noticed blood stain on the toilet. At this point son decided to call the ambulance said he's calling the ambulance. Objective - Vital Signs/Intake and Output Vital Signs (last 24 hours): Temp Pulse Resp BP Pulse Ox 98.8 F 104 H 18 137/72 99 02/22/17 06:00 02/22/17 06:00 02/22/17 06:00 02/22/17 06:00 02/22/17 06:00 Intake and Output: 02/22/17 02/22/17 06:59 18:59 Intake Total 0 1000 Output Total 300 Balance -300 1000 - Medications Medications: Current Medications Aspirin (Ecotrin) 81 mg PO DAILY [facility] Last Admin: 02/22/17 06:28 Dose: Not Given Atorvastatin Calcium (Lipitor) 40 mg PO DAILY [facility] Last Admin: 02/22/17 01:50 Dose: 40 mg Clopidogrel Bisulfate (Plavix) 75 mg PO DAILY [facility] Last Admin: 02/22/17 01:50 Dose: 75 mg Heparin Sodium/Sodium Chloride (Heparin 10387 Units/250ml 1/2 Normal Saline) 25 ,000 units in 250 mls @ 7.348 mls/hr IV .Q24H JUANA; 12 UNITS/KG/HR PRN Reason: Protocol Last Admin: 02/22/17 02:12 Dose: 12 units/kg/hr, 7.348 mls/hr Potassium Chloride 10 meq/ (Sodium Chloride) 1,005 mls @ 100 mls/hr IV .Q10H3M [facility] Pamidronate Disodium 60 mg/ (Sodium Chloride) 510 mls @ 127.5 mls/hr IVPB ONCE ONE Stop: 02/22/17 12:54 Iron Sucrose 200 mg/ Sodium (Chloride) 110 mls @ 110 mls/hr IVPB MWF ONE Stop: 02/22/17 09:55 Insulin Human Lispro (Humalog Med) 0 units SC [facility] PRN Reason: Protocol Last Admin: 02/22/17 08:48 Dose: Not Given Insulin Human Regular (Humulin R Low) 0 units SC ACHS [facility] PRN Reason: Protocol Last Admin: 02/22/17 08:00 Dose: 4 units Ondansetron HCl (Zofran Inj) 4 mg IVP Q6 PRN PRN Reason: Nausea/Vomiting Pantoprazole Sodium (Protonix Inj) 40 mg IVP DAILY JUANA - Labs Labs: 02/22/17 02:45 02/22/17 02:45 APTT 55.7 Seconds (25.1-36.5) H 02/22/17 08:30 - Constitutional Appears: Toxic, Confused - Head Exam Head Exam: ATRAUMATIC, NORMAL INSPECTION, NORMOCEPHALIC - ENT Exam ENT Exam: Mucous Membranes Dry - Neck Exam Neck Exam: Normal Inspection - Respiratory Exam Respiratory Exam: Clear to Ausculation Bilateral, NORMAL BREATHING PATTERN. absent: Wheezes - Cardiovascular Exam Cardiovascular Exam: +S1, +S2, Murmur - GI/Abdominal Exam GI & Abdominal Exam: Soft - Neurological Exam Neurological Exam: Altered. absent: Alert, Awake, CN II-XII Intact, Oriented x3 - Skin Skin Exam: Intact, Normal Color, Warm Assessment and Plan - Assessment and Plan (Free Text) Assessment: 66 year old female with unknown past medical history presents to the ED with AMS and lethargy. Plan: Plan: 1. NSTEMI -EKG;Sinus Tachycardic at [address] Elevations -CBC ordered and reviewed -Troponin .3 x2 -EKG in AM -Heparin given in Ed; -Heparin Drip;held due to patient's anemia -Aspirin -Lipitor -Metoprolol 25 mg BID as per Dr. Love -A1C pending -TSH pending -Lipid Panel Pending 2. AMS secondary to sepsis vs hypercalcemia -CT Head neagtive for acute changes -Ammonia level pending -Ca: 14.6 -IV fluids NS@100, continue to monitor 3. 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 Jarvis Consulted -GI consulted, Wally, follow recs -Dr. Tye Jaimes consulted for biopsy 4. Leukocytosis -WBC 17.3 -Temp 99.9 -ID consulted, Dr. OLIVARES, will follow up recs -follow up urine and blood cultures 5. Hyperglycemia -Glucose currently 236 -ISS sliding scale medium, with accuchecks -A1C pending -will continue to monitor -IVF continue 7. CKD v NOHEMI -BUN: 41 Cr: 1.5 -Fluids -Nephrology consulted, Elissa, will follow reccs 8. Anemia -Hgb 7.1 -1 unit PRBC transfused 9. Trasaminitis -likely secondary to liver mets -liver panel follow up -will continue to monitor GI/DVT prophylaxis Protonix/Heparin Social work: Son will come with niece around 7p.m. to see mother. See HPI for son's name and contact as he is the patient's POA. <Yg Salguero - Last Filed: 02/22/17 17:29> Objective - Vital Signs/Intake and Output Vital Signs (last 24 hours): Temp Pulse Resp BP Pulse Ox 99.0 F 94 H 18 151/76 H 99 02/22/17 14:45 02/22/17 14:45 02/22/17 14:45 02/22/17 14:45 02/22/17 06:00 Intake and Output: 02/22/17 02/22/17 06:59 18:59 Intake Total 0 1435 Output Total 300 Balance -300 1435 - Medications Medications: Current Medications Atorvastatin Calcium (Lipitor) 40 mg PO DAILY [facility] Last Admin: 02/22/17 10:52 Dose: Not Given Carvedilol (Coreg) 6.25 mg PO BID [facility] Last Admin: 02/22/17 10:52 Dose: Not Given Potassium Chloride 10 meq/ (Sodium Chloride) 1,005 mls @ 100 mls/hr IV .Q10H3M [facility] Last Admin: 02/22/17 14:55 Dose: 100 mls/hr Insulin Human Regular (Humulin R Low) 0 units SC ACHS JUANA PRN Reason: Protocol Last Admin: 02/22/17 16:37 Dose: Not Given Ondansetron HCl (Zofran Inj) 4 mg IVP Q6 PRN PRN Reason: Nausea/Vomiting Pantoprazole Sodium (Protonix Inj) 40 mg IVP DAILY [facility] Last Admin: 02/22/17 11:00 Dose: 40 mg - Labs Labs: 02/22/17 02:45 02/22/17 02:45 APTT 55.7 Seconds (25.1-36.5) H 02/22/17 08:30 Attending/Attestation - Attestation I have personally seen and examined this patient.: Yes I have fully participated in the care of the patient.: Yes I have reviewed all pertinent clinical information, including history, physical exam and plan: Yes Notes (Text): 02/22/17 17:19 Attending note; Patient seen and examined with resident. Patient is alert, awake. Lethargic. Answers only a few questions. Moving all extremities. Patient is a 66-year-old female with a past medical history of diabetes is admitted with questionable GI bleed and fall. Patient was also found to have altered mental status. CT head is negative. CT abdomen and pelvis showed perirectal /pelvic mass with extension. Possible uterine versus malignancy suspected. CT abdomen also showed multiple liver and lung metastasis . Anemia; currently no active bleeding. 1 unit PRBC ordered. Consent obtained from patient's son. Hypercalcemia secondary to malignancy.could be possible etiology for altered mental status. Continue IV fluids .IV pamidronate ordered . Renal insufficiency ; secondary to obstructive uropathy. continue Jha catheter and monitor creatinine. Nephrology evaluation appreciated . Elevated troponin ; secondary to demand ischemia . case discussed with cardiology in detail . Discontinue aspirin, Plavix and heparin drip . Started on Coreg . echocardiogram ordered . Oncology evaluation requested. We will get biopsy on Friday. Case discussed with patient's son Fernando Elizondo in detail. No other past medical history available other than diabetes. Patient also does not follow up with any PMD. Continue to monitor closely. The diagnosis , treatment options and prognosis discussed with patient's son in detail.
--- NOTE | 2017-02-22 09:58 | CON ---
DATE OF CONSULTATION: 02/22/2017 REFERRING PHYSICIAN: Dr. Salguero. REASON FOR CONSULTATION: Evaluation of the patient unknown to me who presents with acute renal failure, hypercalcemia likely in the setting of metastatic cancer. The patient is unable to give a history. HISTORY OF PRESENT ILLNESS: The patient is a 66-year-old black female from [place], currently living in [place]. She was brought to the hospital for altered mental status and weakness. In the emergency room, she was noted to have an elevated BUN and creatinine and hypercalcemia. Workup in the emergency room, scans of her abdomen chest and pelvis shows what appears to be a pelvic perirectal mass, perhaps [employer] in origin with obstruction of the distal left ureter, lymphadenopathy, pulmonary and hepatic masses are noted. The patient gives no medical history. She has no history of chronic kidney disease. The patient perhaps might have been taking insulin at home, but this is unclear. The patient presents for evaluation of her altered mental status and from my standpoint evaluation of her elevated BUN and creatinine and hypocalcemia. PAST MEDICAL HISTORY: Positive for perhaps IDDM. It is unclear if the patient is compliant with medication. Unclear how long the duration of diabetes is. No apparent history of cancer. No history of chronic kidney disease. No history of hypertension. MEDICATIONS AT HOME: Include that of insulin, unclear if she is compliant with taking the medication. ALLERGIES: THE PATIENT HAS NO ALLERGIES, BUT SHE STATES THAT SHE KNOWS OF. SOCIAL HISTORY: She denies any cigarette smoking. Denies any alcohol use. FAMILY HISTORY: Unavailable. REVIEW OF SYSTEMS: Completely unobtainable from the patient. The patient shakes her head to every question yes. PHYSICAL EXAMINATION: GENERAL: The patient is seen lying comfortable in bed on 3R. VITAL SIGNS: Blood pressure 137/72, heart rate is 104, temperature 98.8, respiratory rate 18 with a pulse ox of 99%. HEENT: Shows her to be normocephalic, atraumatic. Conjunctivae are pale. Sclerae are nonicteric. Pupils appear to be equal and reactive to light and accommodation. Extraocular muscles are intact. NECK: Supple. No neck vein distention. No lymphadenopathy. No bruits. CHEST: Clear to auscultation and percussion. No rales. No rhonchi. No wheezing. CARDIOVASCULAR: Shows a regular rate and rhythm with a soft systolic murmur at the left lower sternal border. No S3. No S4. No rub. ABDOMEN: Soft. Bowel sounds are normal. No rebound. No guarding. No palpable masses. BACK: No CVAT. No spinal tenderness. EXTREMITIES: Show no lower extremity edema. No cyanosis or clubbing. Distal lower extremity pulses are 1+ to 2+ bilaterally. NEURO: Shows her to be alert, difficult to know if she is oriented or not. There are no gross focal motor or sensory deficits. LABORATORY DATA AND IMAGING STUDIES: Admitting head CT shows no acute changes. Abdominal and pelvic CT shows a left perirectal pelvic mass, continuous with the lower uterus and bladder with obstruction of the distal left ureter, which is consistent with malignancy with extension into the pelvic floor possible. Pelvic adenopathy, hepatic masses and pulmonary masses, likely metastatic in nature. Positive gallstones. CBC; white blood cell count 17.2 with a hemoglobin of 7.1 and a platelet count of 458,000. Coags; PTT 30.7. Chemistries today sodium 138, potassium down to 3.5, chloride 98 with a CO2 of 31. BUN is down from 46 to 41. Creatinine is down from 1.7 to 1.5. Glucose was 428 on admission, it is 236 today. Calcium was 14.6, it is presently 13.8. Phosphorus is low as 1.6, magnesium is 1.9. Iron saturations are low at less than 5%. Liver enzymes are mildly elevated. Ammonia level was nondetectable. LDH is elevated. Troponins are elevated but flat at 0.30. Albumin is 3.8. Mild elevation of lipase. TSH level is normal. Urines are essentially negative with the exception of glucose in her urine. ASSESSMENT: 1. Acute renal failure in a patient who presents with hypercalcemia likely in the setting of metastatic cancer. The patient is appropriately receiving IV fluid hydration. I will give the patient one dose of Aredia to help lower her calcium level. I will check a PTH level, a PTH related protein and vitamin D level, but in all likelihood, the hypercalcemia is secondary to malignancy. Of note, the patient is mildly hypophosphatemic. 2. History of anemia. Likely secondary to underlying malignancy. The patient also appears to be iron deficient, and she may start on IV iron therapy. 3. History of insulin-dependent diabetes mellitus. The patient will continue on sliding scale insulin. 4. Mild elevation of her troponin levels likely secondary to her elevated BUN and creatinine. No evidence for acute coronary syndrome or non-ST elevation myocardial infarction. From my standpoint, IV heparin could likely be discontinued. 5. Obstructed left distal ureter. Perhaps evaluation. 6. Altered mental status likely secondary to metabolic issues secondary to hypercalcemia. This should resolve with correction of her calcium level. PLAN: 1. Oncology evaluation ordered. 2. Continue IV fluid hydration. I will give the patient one dose of Aredia today to help lower her calcium level. 3. Obtain PTH level, PTH related to protein, vitamin D level. 4. evaluation for her obstructive left ureter. 5. Monitor daily labs. 6. Perhaps further information from her family when possible to learn about any significant past medical history. Thank you for letting me partake and share in the care of your patient. Irving Bowers MD MTDAndrés
--- NOTE | 2017-02-22 09:59 | RAD ---
HISTORY: AMS COMPARISON: 02/21/2017 at 10:30 p.m. TECHNIQUE: Chest PA and lateral FINDINGS: LUNGS: Minimal subsegmental atelectasis at right base. No pulmonary infiltrate. PLEURA: No significant pleural effusion identified. No pneumothorax apparent. CARDIOVASCULAR: Normal. OSSEOUS STRUCTURES: No significant abnormalities. VISUALIZED UPPER ABDOMEN: Normal. OTHER FINDINGS: None. IMPRESSION: No active disease.
--- NOTE | 2017-02-22 10:58 | RAD ---
HISTORY: AMS COMPARISON: No prior. FINDINGS: LUNGS: No active pulmonary disease. PLEURA: No significant pleural effusion identified, no pneumothorax apparent. CARDIOVASCULAR: Normal. OSSEOUS STRUCTURES: No significant abnormalities. VISUALIZED UPPER ABDOMEN: Normal. OTHER FINDINGS: None. IMPRESSION: No active disease.
[2017-02-22] MEDS: cefTRIAXone 1 gm 1 GM/100 ML BAG IVPB SCH (18:50)
--- NOTE | 2017-02-22 18:57 | CARD ---
APPROVED REPORT EXAM: Two-dimensional and M-mode echocardiogram with Doppler and color Doppler. INDICATION 2D DIMENSIONS IVSd1.3 (0.7-1.1cm)LVDd3.6 (3.9-5.9cm) PWd1.2 (0.7-1.1cm)LVDs2.4 (2.5-4.0cm) FS (%) 32.0 %LVEF (%)61.1 (>50%) M-Mode DIMENSIONS Left Atrium (MM)3.10 (2.5-4.0cm)Aortic Root3.20 (2.2-3.7cm) Aortic Cusp Exc.1.30 (1.5-2.0cm) Aortic Valve AoV Peak Fhewxgky832.0cm/Luz Peak GR.12mmHg Mitral Valve MV E Dtrdqxpi32.4cm/sMV A Bddyzorj45.0cm/sE/A ratio0.9 TDI Lateral E' Peak V8.97cm/sMedial E' Peak V7.02cm/sE/Lateral E'9.3 E/Medial E'11.9 Tricuspid Valve TR Peak Wumaqxyc608cz/sRAP OMGHODTD50qqGxGC Peak Gr.19mmHg TESH93mcCd LEFT VENTRICLE The left ventricle is normal size. There is mild concentric left ventricular hypertrophy. The left ventricular function is normal. The left ventricular ejection fraction is within the normal range. There is normal LV segmental wall motion. Transmitral Doppler flow pattern is Grade I-abnormal relaxation pattern. RIGHT VENTRICLE The right ventricle is normal size. There is normal right ventricular wall thickness. The right ventricular systolic function is normal. ATRIA The left atrium size is normal. The right atrium size is normal. AORTIC VALVE The aortic valve is thickened but opens well. No aortic regurgitation is present. There is no aortic valvular stenosis. MITRAL VALVE The mitral valve is mildly thickened. There is no mitral valve regurgitation noted. There is no mitral valve stenosis. TRICUSPID VALVE The tricuspid valve is normal in structure. There is no tricuspid valve regurgitation noted. GREAT VESSELS The aortic root displays moderate sclerocalcific changes of the aortic root. The IVC is normal in size and collapses >50% with inspiration. PERICARDIAL EFFUSION There is no pericardial effusion. <Conclusion> The left ventricle is normal size. There is mild concentric left ventricular hypertrophy. The left ventricular function is normal. The left ventricular ejection fraction is within the normal range. There is normal LV segmental wall motion. Transmitral Doppler flow pattern is Grade I-abnormal relaxation pattern.
[2017-02-22 19:01] LABS: VENOUS BLOOD GAS BASE EXCESS 3.5 mmol/L (0.0-2.0); VENOUS BLOOD PH 7.49 (7.32-7.43)
--- NOTE | 2017-02-22 19:36 | CON ---
DATE: 02/22/2017 REASON FOR CONSULT: Possible metastatic rectal cancer. HISTORY OF PRESENT ILLNESS: The patient is a 66-year-old female with past medical history significant for insulin-dependant diabetes, who was brought to the emergency room with altered mental status and weakness. She was noted to have an elevated BUN, creatinine, and hypercalcemia in the ER along with marked anemia. Subsequently, underwent a CT scan of the abdomen and pelvis, which reveals large perirectal or pelvic mass contiguous with the lower uterus and bladder with obstruction of the distal left ureter, appearances consistent with malignancy, extension into the pelvic floor as well as pelvic adenopathy, hepatic metastasis, and pulmonary metastasis are also noted on the initial CT. She is unable to give a clear history at this point due to her current mental status and is unclear of how long symptoms have been progressing, not able to tell me if she had any melena or hematochezia. No other complaints at this point. PAST MEDICAL HISTORY: As above. Known history of insulin-dependant diabetes. MEDICATIONS: Currently include Coreg, Ecotrin, Humulin, Lipitor, Plavix, Protonix, Zofran, also getting IV Venofer, and Lopressor. ALLERGIES: NO KNOWN DRUG ALLERGIES. SOCIAL HISTORY: Noncontributory. She is not a smoker. No alcohol use, no drug use. FAMILY HISTORY: Unobtainable at this point. REVIEW OF SYSTEMS: Unobtainable. PHYSICAL EXAMINATION: VITAL SIGNS: Reveal a temperature of 99.5, pulse of 101, respiratory rate of 18, blood pressure of 144/80. GENERAL: The patient is elderly female lying in bed, in no acute distress. HEENT: Normocephalic and atraumatic. Eyes: Pupils equal, round, reactive to light and accommodation. There is no pallor. No icterus is noted. NECK: Supple with no adenopathy. No JVD. No thyromegaly. LUNGS: Bilateral rhonchi. CARDIOVASCULAR: S1 and S2 is heard. The patient is tachycardiac and tachypneic. ABDOMEN: Positive bowel sounds. Soft. There was diffuse tenderness. EXTREMITIES: There is no edema. LABORATORY DATA: Reveal white count 17.2, hemoglobin 7.1, hematocrit of 22.7, MCV of 71.6, and a platelet count of 458. Chemistry reveal a BUN and creatinine of 41 and 1.5, on admission it was 46 and 1.7. Calcium was markedly elevated at 14.6 on admission then slowly declining, today it is 13.8. Her iron studies are consistent with anemia of chronic disease. Ferritin levels are pending. B12 and folate are also pending. Her coags reveal a PTT of 55. Urine studies do not reveal any abnormalities. ASSESSMENT AND PLAN: Elderly female with large pelvic mass possibly rectal, possibly arising from her uterus, unclear at this point with marked lymphadenopathy along with pulmonary as well as hepatic metastatic disease, and she also presents with marked anemia, hypercalcemia as well as renal failure. Currently being treated for hypercalcemia including a dose of Aredia with aggressive hydration ongoing. She also need a CT-guided biopsy of the liver metastasis or the lung metastasis based on interventional evaluation. We will also check a CEA as well as CA-125. Agree with IV iron at this point. She may need a PRBC transfusion. Further treatment plan subjective to final pathology. We will discuss with the patient as well as family. Thank you for the consult. We will follow. Kylah Jarvis MD
[2017-02-22 22:16] LABS: VENOUS BLOOD GAS BASE EXCESS 2.3 mmol/L (0.0-2.0); VENOUS BLOOD PH 7.54 (7.32-7.43)
--- NOTE | 2017-02-22 22:17 | CON ---
DATE: 02/22/2017 HISTORY OF PRESENT ILLNESS: Ms. Golden was examined this morning. She is a 66-year-old black female with past medical history of diabetes, presented to the emergency room confused and complaining of some abdominal pain. According to the ER note and note of Dr. Mcdowell, the patient's son apparently was downstairs noticed the patient was acting inappropriately. There are no complaints of rectal bleeding, nausea, vomiting, diarrhea, etc. The patient was subsequently brought to the emergency room for change in mental status. FAMILY HISTORY: Apparently, there is no known family history. HOME MEDICATIONS: Include insulin glargine. I reviewed this case with nurse on the floor. We were unable to obtain any information from the patient. PHYSICAL EXAMINATION: VITAL SIGNS: I reviewed this patient's vital signs. HEENT: Unable to be performed. LUNGS: Decreased breath sounds at bases. HEART: Irregular rhythm. ABDOMEN: Soft. No gross masses palpated in the patient's current position. NEUROLOGIC: Neurologically, the patient is not responsive to verbal stimuli. LABORATORY AND DIAGNOSTIC DATA: I reviewed this patient's laboratory data which consists of white count of 17,000, H&H of 10/26. Chemistries are irregular, which consist of on admission a glucose of 428 and subsequently 236. Calcium elevated, level 14.6 and subsequently 13.8. She has an elevated alkaline phosphatase levels in the mid 200s. LDH is in the 1883 range. She has an elevated troponin in the range of 0.3. Iron is still less than 10. She has elevated transaminases in the range of last reading 82/57. Bilirubin 0.5. The patient had a normal urine with spillage of urine protein as well as glucose. Evaluation of the head CT indicates no acute intracranial abnormalities. Evaluation of the abdominal CT indicates that the liver is enlarged with multiple hepatic masses with dilated left ureter and scattered diverticulosis. There does not appear to be any specific colonic mass; however, there is a left pelvic mass contiguous to the rectum. ??suggestion of lateral wall rectal mass in images 175-178. Note that there is a large perirectal /pelvic mass contiguous with the lower part of the distal ureter. 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 ASSESSMENT AND PLAN: The patient is a 66-year-old black female with acute change in mental status. Apparently, she went on vacation roughly about 2 weeks ago. The patient presents with numerous problems including non-ST elevated myocardial infarction with an elevated troponin. She has an indication of a large pelvic mass with diffuse metastatic disease as well as leukocytosis and elevated calcium. She is also anemic with evidence of hyperglycemia. At this point in time, the patient has numerous problems. Suggest the acute problems be treated; however, relative to GI, not much to offer at this particular time point. The patient will be seen later by Cardiology as well as Dr. Jarvis from Oncology service. Bowen Lo DO, PhD MTDD
--- NOTE | 2017-02-22 23:14 | CARD ---
APPROVED REPORT EKG Measurement Heart [id number] [id number] <Conclusion> Sinus tachycardia Otherwise normal ECG
--- NOTE | 2017-02-22 23:20 | CARD ---
APPROVED REPORT EKG Measurement Heart [id number] <Conclusion> Sinus tachycardia Nonspecific ST and T wave abnormality Abnormal ECG
--- NOTE | 2017-02-22 23:59 | CP.PCM.CON ---
History of Present Illness - History of Present Illness History of Present Illness: Infectious Disease Consultation: February 22, 2017 66 yo female presenting with AMS and lethargy. Patient lives in a 2 family house with her son and his family. The son went on a vacation 2 weeks ago and found the patient in an altered state of mind with generalized weakness at time but consistent lower body weakness. 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 The patient has not worked in the past month. When the son came back from a vacation in [place], the patient was found on the floor unclothed on the bottom half of her body. The son helped the patient to the toilet and saw blood in the bowl. During the day the patient has had periods of lucency but has remained immobile in bed. The patient has periods of being non verbal and very confused. PMHx: Nothing specific given PSHx: Unable to Obtain Allergies: NKDA Social Hx: No given history of tobacco, EtOH, or illicit drug use Active Medications Atorvastatin Calcium (Lipitor) 40 mg PO DAILY [facility] Last Admin: 02/22/17 10:52 Dose: Not Given Carvedilol (Coreg) 6.25 mg PO BID [facility] Last Admin: 02/22/17 17:40 Dose: Not Given Potassium Chloride 10 meq/ (Sodium Chloride) 1,005 mls @ 100 mls/hr IV .Q10H3M [facility] Last Admin: 02/22/17 23:52 Dose: 100 mls/hr Ceftriaxone Sodium (Rocephin 1 Gram Ivpb) 1 gm in 100 mls @ 100 mls/hr IVPB DAILY [facility] PRN Reason: Protocol Last Admin: 02/22/17 18:50 Dose: 100 mls/hr Insulin Human Regular (Humulin R Low) 0 units SC ACHS [facility] PRN Reason: Protocol Last Admin: 02/22/17 21:57 Dose: Not Given Ondansetron HCl (Zofran Inj) 4 mg IVP Q6 PRN PRN Reason: Nausea/Vomiting Pantoprazole Sodium (Protonix Inj) 40 mg IVP DAILY [facility] Last Admin: 02/22/17 11:00 Dose: 40 mg Family Hx: none given as per son ROS: Unable to Obtain Past Patient History - Infectious Disease Hx of Infectious Diseases: None - Past Social History Smoking Status: Unknown If Ever Smoked - CARDIAC Hx Cardiac Disorders: Yes Hx Hypertension: Yes - ENDOCRINE/METABOLIC Hx Diabetes Mellitus Type 2: Yes - MUSCULOSKELETAL/RHEUMATOLOGICAL Hx Falls: No - PSYCHIATRIC Hx Substance Use: No (unkown) - SURGICAL HISTORY Hx Surgeries: No - ANESTHESIA Hx Anesthesia: No Meds Allergies/Adverse Reactions: Allergies Allergy/AdvReac Type Severity Reaction Status Date / Time Unobtainable Allergy Verified 02/21/17 22:00 - Medications Medications: Current Medications Atorvastatin Calcium (Lipitor) 40 mg PO DAILY [facility] Last Admin: 02/22/17 10:52 Dose: Not Given Carvedilol (Coreg) 6.25 mg PO BID [facility] Last Admin: 02/22/17 17:40 Dose: Not Given Potassium Chloride 10 meq/ (Sodium Chloride) 1,005 mls @ 100 mls/hr IV .Q10H3M [facility] Last Admin: 02/22/17 23:52 Dose: 100 mls/hr Ceftriaxone Sodium (Rocephin 1 Gram Ivpb) 1 gm in 100 mls @ 100 mls/hr IVPB DAILY [facility] PRN Reason: Protocol Last Admin: 02/22/17 18:50 Dose: 100 mls/hr Insulin Human Regular (Humulin R Low) 0 units SC ACHS [facility] PRN Reason: Protocol Last Admin: 02/22/17 21:57 Dose: Not Given Ondansetron HCl (Zofran Inj) 4 mg IVP Q6 PRN PRN Reason: Nausea/Vomiting Pantoprazole Sodium (Protonix Inj) 40 mg IVP DAILY [facility] Last Admin: 02/22/17 11:00 Dose: 40 mg Physical Exam - Constitutional Appears: Toxic, Confused - Head Exam Head Exam: ATRAUMATIC, NORMOCEPHALIC - Eye Exam Eye Exam: EOMI, PERRL Pupil Exam: NORMAL ACCOMODATION, PERRL - ENT Exam ENT Exam: Mucous Membranes Dry - Neck Exam Neck exam: Positive for: Normal Inspection - Respiratory Exam Respiratory Exam: Clear to Auscultation Bilateral, NORMAL BREATHING PATTERN. absent: Rales, Rhonchi, Wheezes - Cardiovascular Exam Cardiovascular Exam: Tachycardia, +S1, +S2, Systolic Murmur - GI/Abdominal Exam GI & Abdominal Exam: Normal Bowel Sounds, Soft. absent: Distended, Tenderness - Neurological Exam Neurological exam: Altered Additional comments: Periods of being non-verbal, immobile. - Skin Skin Exam: Intact, Normal Color, Warm Results - Vital Signs Recent Vital Signs: Last Vital Signs Temp 100.2 F H 02/22/17 23:17 Pulse 101 H 02/22/17 22:43 Resp 19 02/22/17 22:43 BP 150/76 02/22/17 22:43 Pulse Ox 99 02/22/17 06:00 - Labs Result Diagrams: 02/22/17 02:45 02/22/17 02:45 Labs: Laboratory Results - last 24 hr 02/22/17 02/22/17 02/22/17 00:30 02:45 02:45 WBC 17.2 H RBC 3.17 L Hgb 7.1 L Hct 22.7 L MCV 71.6 L MCH 22.4 L MCHC 31.3 RDW 14.6 H Plt Count 458 H MPV 9.8 Gran % 86.3 H Lymph % (Auto) 6.6 L [place] % (Auto) 6.4 H Eos % (Auto) 0.6 L Baso % (Auto) 0.1 Gran # 14.81 H Lymph # 1.1 L [place] # 1.1 H Eos # 0.1 Baso # 0.02 APTT pO2 VBG pH VBG pCO2 VBG HCO3 VBG Total CO2 VBG O2 Sat (Calc) VBG Base Excess VBG Potassium Glucose Lactate FiO2 Sodium 138 Potassium 3.5 L Chloride 98 Carbon Dioxide 31 Anion Gap 12 BUN 41 H Creatinine 1.5 H Est GFR ( Amer) 42 Est GFR (Non-Af Amer) 35 Random Glucose 236 H Calcium 13.8 H* Phosphorus Magnesium Iron TIBC % Saturation Ferritin Total Bilirubin 0.5 Direct Bilirubin 0.6 H AST 82 H D ALT 57 H Alkaline Phosphatase 216 H Ammonia Troponin I 0.30 H* Total Protein 7.5 Albumin 3.8 Globulin 3.7 Albumin/Globulin Ratio 1.0 L Triglycerides 119 Cholesterol 146 LDL Cholesterol Direct 48 HDL Cholesterol 57 Amylase 43 Lipase 411 H Carcinoembryonic Ag CA 125 Antigen Vitamin B12 Folate TSH 3rd Generation Venous Blood Potassium Urine Color Yellow Urine Appearance Sl cloudy Urine pH 5.5 Ur Specific Cum[place] 1.025 Urine Protein 30 H Urine Glucose (UA) 500 H Urine Ketones Trace H Urine Blood Trace-intact H Urine Nitrate Negative Urine Bilirubin Negative Urine Urobilinogen 0.2 Ur Leukocyte Esterase Negative Urine RBC 0 - 2 Urine WBC 0 - 2 Ur Epithelial Cells 0 - 2 Urine Bacteria Few Blood Type Confirm 02/22/17 02/22/17 02/22/17 02:45 02:45 02:45 WBC RBC Hgb Hct MCV MCH MCHC RDW Plt Count MPV Gran % Lymph % (Auto) [place] % (Auto) Eos % (Auto) Baso % (Auto) Gran # Lymph # [place] # Eos # Baso # APTT pO2 VBG pH VBG pCO2 VBG HCO3 VBG Total CO2 VBG O2 Sat (Calc) VBG Base Excess VBG Potassium Glucose Lactate FiO2 Sodium Potassium Chloride Carbon Dioxide Anion Gap BUN Creatinine Est GFR ( Amer) Est GFR (Non-Af Amer) Random Glucose Calcium Phosphorus Magnesium Iron TIBC % Saturation Ferritin 213.0 Total Bilirubin Direct Bilirubin AST ALT Alkaline Phosphatase Ammonia < 9 L Troponin I Total Protein Albumin Globulin Albumin/Globulin Ratio Triglycerides Cholesterol LDL Cholesterol Direct HDL Cholesterol Amylase Lipase Carcinoembryonic Ag CA 125 Antigen Vitamin B12 > 1000 H Folate 10.0 TSH 3rd Generation 2.18 Venous Blood Potassium Urine Color Urine Appearance Urine pH Ur Specific [place] Urine Protein Urine Glucose (UA) Urine Ketones Urine Blood Urine Nitrate Urine Bilirubin Urine Urobilinogen Ur Leukocyte Esterase Urine RBC Urine WBC Ur Epithelial Cells Urine Bacteria Blood Type Confirm 02/22/17 02/22/17 02/22/17 02:45 02:45 02:56 WBC RBC Hgb Hct MCV MCH MCHC RDW Plt Count MPV Gran % Lymph % (Auto) [place] % (Auto) Eos % (Auto) Baso % (Auto) Gran # Lymph # [place] # Eos # Baso # APTT pO2 VBG pH VBG pCO2 VBG HCO3 VBG Total CO2 VBG O2 Sat (Calc) VBG Base Excess VBG Potassium Glucose Lactate FiO2 Sodium Potassium Chloride Carbon Dioxide Anion Gap BUN Creatinine Est GFR ( Amer) Est GFR (Non-Af Amer) Random Glucose Calcium Phosphorus 1.6 L Magnesium 1.9 Iron < 10 L TIBC 221 L % Saturation 4.5 L Ferritin Total Bilirubin Direct Bilirubin AST ALT Alkaline Phosphatase Ammonia Troponin I Total Protein Albumin Globulin Albumin/Globulin Ratio Triglycerides Cholesterol LDL Cholesterol Direct HDL Cholesterol Amylase Lipase Carcinoembryonic Ag CA 125 Antigen Vitamin B12 Folate TSH 3rd Generation Venous Blood Potassium Urine Color Urine Appearance Urine pH Ur Specific [place] Urine Protein Urine Glucose (UA) Urine Ketones Urine Blood Urine Nitrate Urine Bilirubin Urine Urobilinogen Ur Leukocyte Esterase Urine RBC Urine WBC Ur Epithelial Cells Urine Bacteria Blood Type Confirm B POSITIVE 02/22/17 02/22/17 02/22/17 06:00 08:30 09:45 WBC RBC Hgb Hct MCV MCH MCHC RDW Plt Count MPV Gran % Lymph % (Auto) [place] % (Auto) Eos % (Auto) Baso % (Auto) Gran # Lymph # [place] # Eos # Baso # APTT 55.7 H pO2 VBG pH VBG pCO2 VBG HCO3 VBG Total CO2 VBG O2 Sat (Calc) VBG Base Excess VBG Potassium Glucose Lactate FiO2 Sodium Potassium Chloride Carbon Dioxide Anion Gap BUN Creatinine Est GFR ( Amer) Est GFR (Non-Af Amer) Random Glucose Calcium Phosphorus Magnesium Iron TIBC % Saturation Ferritin Total Bilirubin Direct Bilirubin AST ALT Alkaline Phosphatase Ammonia Troponin I 0.23 H* D Total Protein Albumin Globulin Albumin/Globulin Ratio Triglycerides Cholesterol LDL Cholesterol Direct HDL Cholesterol Amylase Lipase Carcinoembryonic Ag 4.5 H CA 125 Antigen Vitamin B12 Folate TSH 3rd Generation Venous Blood Potassium Urine Color Urine Appearance Urine pH Ur Specific [place] Urine Protein Urine Glucose (UA) Urine Ketones Urine Blood Urine Nitrate Urine Bilirubin Urine Urobilinogen Ur Leukocyte Esterase Urine RBC Urine WBC Ur Epithelial Cells Urine Bacteria Blood Type Confirm 02/22/17 02/22/17 02/22/17 09:45 18:50 22:10 WBC RBC Hgb Hct MCV MCH MCHC RDW Plt Count MPV Gran % Lymph % (Auto) [place] % (Auto) Eos % (Auto) Baso % (Auto) Gran # Lymph # [place] # Eos # Baso # APTT pO2 27 L 56 H VBG pH 7.49 H 7.54 H VBG pCO2 35.0 L 28.0 L VBG HCO3 26.7 23.9 VBG Total CO2 27.8 24.8 VBG O2 Sat (Calc) 65.6 H 95.6 H VBG Base Excess 3.5 H 2.3 H VBG Potassium 3.6 3.4 L Glucose 162 H 200 H Lactate 2.6 H 2.3 H FiO2 21.0 21.0 Sodium 142.0 141.0 Potassium Chloride 109.0 H 110.0 H Carbon Dioxide Anion Gap BUN Creatinine Est GFR ( Amer) Est GFR (Non-Af Amer) Random Glucose Calcium Phosphorus Magnesium Iron TIBC % Saturation Ferritin Total Bilirubin Direct Bilirubin AST ALT Alkaline Phosphatase Ammonia Troponin I Total Protein Albumin Globulin Albumin/Globulin Ratio Triglycerides Cholesterol LDL Cholesterol Direct HDL Cholesterol Amylase Lipase Carcinoembryonic Ag CA 125 Antigen 414 H Vitamin B12 Folate TSH 3rd Generation Venous Blood Potassium 3.6 3.4 L Urine Color Urine Appearance Urine pH Ur Specific [place] Urine Protein Urine Glucose (UA) Urine Ketones Urine Blood Urine Nitrate Urine Bilirubin Urine Urobilinogen Ur Leukocyte Esterase Urine RBC Urine WBC Ur Epithelial Cells Urine Bacteria Blood Type Confirm Assessment & Plan - Assessment and Plan (Free Text) Assessment: 66 yo female with leukocytosis, AMS, periods of confusion and even being nonverbal, immobility. Difficult to obtain history as the patient is currently a poor and unreliable historian. The son states that the patient (mother) was very private and didn't tell him of any medical history. At this point the patient has tachycardia, elevated troponin (NSTEMI?), AMS, question of Rectal Cancer, Leukocytosis, and elevated creatinine as well as transaminitis. Would also consider lumbar puncture on the patient and obtaining cancer markers. CT Abdomen and pelvis shows a perirectal/pelvic mass of unknown origin. There are also multiple liver and lung lesions highly suspicious of metastatic disease. Continue Ceftriaxone IV for now. Thank you for allowing me to participate in the care of this patient, we will follow with you.
--- NOTE | 2017-02-23 03:09 | CON ---
LOCATION: The patient is in room 374, bed 1. REASON FOR CONSULTATION: Elevated troponin, renal failure, metastatic carcinoma. HISTORY OF PRESENT ILLNESS: The patient is a 66-year-old female, who was brought by the son that he found her lethargic and altered mental status and also he saw blood in the commode. The patient when came to the emergency room, she was lethargic and was not responding to all the questions. Apparently, there is no history of any chest pain, any shortness of breath or palpitation. PAST MEDICAL HISTORY: Positive for diabetes mellitus, how long she has diabetes we do not know. Son does not know much about the history. HOME MEDICATION: Unclear. We do not know what she was taking and what she is taking regularly. ALLERGIES: HISTORY IS NOT AVAILABLE. PERSONAL HISTORY: Apparently, there is no history of smoking or drinking. REVIEW OF SYSTEMS: Again, the patient does not give proper history, so review of systems was not able to be obtainable. PHYSICAL EXAMINATION: VITAL SIGNS: Blood pressure 153/80, respirations 18, pulse 97, temperature 99.3. HEENT: Head is normocephalic. Eyes: Pupils normal, conjunctivae pale. NECK: JVP low. Carotids equal. THORAX: AP diameter normal. LUNGS: Clear. CARDIOVASCULAR: S1 and S2. ABDOMEN: Soft. Bowel sounds normal. EXTREMITIES: No clubbing, no cyanosis. LABORATORY DATA: WBC 17.2, hemoglobin 7.1, hematocrit 22.7, platelets 458. Sodium 138; potassium 3.5, yesterday in ER potassium was 4.3; BUN 41; creatinine 1.5; random glucose 236; calcium yesterday 14.6, today 13.8. Direct bilirubin 0.6, AST 82, ALT 57, alkaline phosphatase 216. Troponin first one 0.30, second one also 0.30. Cholesterol 146, triglyceride 119. Lipase 411, yesterday was 367. Chest x-ray, no apparent active disease. EKG showed sinus tachycardia 123 per minute, nonspecific ST-T changes. Abdomen and pelvis CT scan showed left perirectal mass contagious with the lower uterus and bladder with obstruction of the distal left ureter appearance consistent with malignancy, expansion to the pelvic floor, pelvic adenopathy, hepatic metastasis, pulmonary metastasis, gallstones. CAT scan of the head, no acute intracranial abnormality. DIAGNOSES: Troponin slightly elevated, but the patient also has abnormal liver function test, also the patient has severe anemia, so cannot rule out non-ST elevation myocardial infarction. Apparently, the patient was also bleeding. The patient has metastatic disease probably primarily from the gynecologic origin, hypercalcemia, severe anemia, diabetes mellitus and hypertension. PLAN: The patient is not in safety to do any interventional therapy at this moment. We will put Lopressor 25 p.o. b.i.d. Echo has been already done. Atorvastatin 40 mg p.o. daily, Venofer was ordered early. The patient is not a candidate of any anticoagulation therapy because of her bleeding. Son found blood in the toilet and also the patient's labs showed severe anemia, iron deficiency type consistent with bleeding. From cardiac point of view, we will treat her conservatively and if she needs any procedure, further workup from cardiac point of view, she can go as a moderate risk. The patient already has been seen by Nephrology. The patient is already on carvedilol 6.25 b.i.d., so we will not put on Lopressor. The patient is already getting 0.9 saline 100 mL/hour, Protonix 40 mg IV daily. We will follow. Sharan Love MD
[2017-02-23] MEDS: Insulin Reg-LOW-Coverage SC SCH ×4 (08:40→22:20)
[2017-02-23 09:52] LABS: BASO # 0.03 K/mm3 (0.0-2.0); BASO % 0.2 % (0.0-3.0); EOS # 0.3 (0.0-0.7); EOS % 1.5 % (1.5-5.0); GRAN # 14.63 (1.4-6.5); GRAN % 85.3 % (50.0-68.0); HEMATOCRIT 27.1 % (36.0-48.0); LYMPH # 1.3 (1.2-3.4); LYMPH % 7.5 % (22.0-35.0); MEAN CELL VOLUME 74.2 fl (80.0-105.0); MEAN CORPUSCULAR HEMOGLOBIN 23.8 pg (25.0-35.0); MEAN CORPUSCULAR HGB CONC 32.1 g/dl (31.0-37.0); MEAN PLATELET VOLUME 9.9 fl (7.0-11.0); MONO % 5.5 % (1.0-6.0); RED CELL DISTRIBUTION WIDTH 15.3 % (11.5-14.5); WHITE BLOOD COUNT 17.1 10^3/ul (4.5-11.0)
[2017-02-23] MEDS: cefTRIAXone 1 gm 1 GM/100 ML BAG IVPB SCH (10:02)
[2017-02-23 10:13] LABS: BILIRUBIN,TOTAL 0.6 mg/dL (0.2-1.3); MAGNESIUM 1.6 mg/dL (1.7-2.2); PHOSPHOROUS 1.4 mg/dL (2.5-4.5); POTASSIUM 3.8 mmol/L (3.6-5.0); TOTAL PROTEIN 6.6 g/dL (5.8-8.3); URIC ACID 8.6 mg/dL (2.5-6.2)
[2017-02-23] MEDS ORDERED: Magnesium Oxide 400 mg Tab UD PO ONE (10:16)
--- NOTE | 2017-02-23 10:40 | CP.PCM.PN ---
Addendum entered and electronically signed by Nito Cui DO 02/23/17 11:34: No stiff neck noted on examination Original Note: <Nito Cui - Last Filed: 02/23/17 10:37> Subjective - Date & Time of Evaluation Date of Evaluation: 02/23/17 Time of Evaluation: 09:00 - Subjective Subjective: Dr. Salguero Service Pt was seen and examined at bedside. Pt is conversing more than previously. Pt is AAOx2 and following commands. Pt did not offer any complaints at this time. No acute or adverse events overnight as per nursing staff. ROS unavailable 2/[address] Objective - Vital Signs/Intake and Output Vital Signs (last 24 hours): Temp Pulse Resp BP Pulse Ox 98.9 F 110 H 18 150/80 95 02/23/17 06:00 02/23/17 10:01 02/23/17 06:00 02/23/17 10:01 02/23/17 06:00 Intake and Output: 02/23/17 02/23/17 06:59 18:59 Intake Total 0 Output Total 325 Balance -325 - Medications Medications: Current Medications Atorvastatin Calcium (Lipitor) 40 mg PO DAILY [facility] Last Admin: 02/23/17 10:01 Dose: 40 mg Carvedilol (Coreg) 6.25 mg PO BID [facility] Last Admin: 02/23/17 10:01 Dose: 6.25 mg Ceftriaxone Sodium (Rocephin 1 Gram Ivpb) 1 gm in 100 mls @ 100 mls/hr IVPB DAILY [facility] PRN Reason: Protocol Last Admin: 02/23/17 10:02 Dose: 100 mls/hr Potassium Chloride 10 meq/ (Sodium Chloride) 1,005 mls @ 150 mls/hr IV .Q6H42M [facility] Last Admin: 02/23/17 08:40 Dose: 150 mls/hr Potassium Phosphate 15 mmole/ (Sodium Chloride) 255 mls @ 42.5 mls/hr IVPB ONCE ONE Stop: 02/23/17 16:44 Insulin Human Regular (Humulin R Low) 0 units SC ACHS [facility] PRN Reason: Protocol Last Admin: 02/23/17 08:40 Dose: Not Given Ondansetron HCl (Zofran Inj) 4 mg IVP Q6 PRN PRN Reason: Nausea/Vomiting Pantoprazole Sodium (Protonix Inj) 40 mg IVP DAILY [facility] Last Admin: 02/23/17 10:01 Dose: 40 mg Potassium Phosphate (Potassium Phosphate) 15 mmole IV ONCE ONE Stop: 02/23/17 10:46 - Labs Labs: 02/23/17 09:00 02/23/17 09:00 APTT 55.7 Seconds (25.1-36.5) H 02/22/17 08:30 - Constitutional Appears: No Acute Distress - Head Exam Head Exam: ATRAUMATIC, NORMAL INSPECTION, NORMOCEPHALIC - Eye Exam Eye Exam: EOMI, Normal appearance, PERRL Pupil Exam: NORMAL ACCOMODATION, PERRL - ENT Exam ENT Exam: Mucous Membranes Moist, Normal Exam - Neck Exam Neck Exam: Full ROM, Normal Inspection. absent: Lymphadenopathy - Respiratory Exam Respiratory Exam: Clear to Ausculation Bilateral, NORMAL BREATHING PATTERN - Cardiovascular Exam Cardiovascular Exam: REGULAR RHYTHM, +S1, +S2. absent: Murmur - GI/Abdominal Exam GI & Abdominal Exam: Soft, Normal Bowel Sounds. absent: Tenderness - Extremities Exam Extremities Exam: Full ROM, Normal Capillary Refill, Normal Inspection. absent : Joint Swelling, Pedal Edema - Neurological Exam Neurological Exam: Alert, Awake, CN II-XII Intact - Psychiatric Exam Psychiatric exam: Normal Affect, Normal Mood - Skin Skin Exam: Dry, Intact, Normal Color, Warm Assessment and Plan - Assessment and Plan (Free Text) Assessment: 66 year old female with unknown past medical history presents to the ED with AMS and lethargy. AMS secondary hypercalcemia -CT Head neagtive for acute changes -Ammonia level low -Ca: 14.6 -IV fluids NS@150, continue to monitor and force diuresis as necessary NSTEMI -EKG;Sinus Tachycardic at [address] Elevations in ED -CBC ordered and reviewed -Troponin .3 downtrending -EKG fu -Heparin given in Ed; -Heparin Drip;held due to patient's anemia -Aspirin -Lipitor -Metoprolol 25 mg BID as per Dr. 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 Jarvis Consulted -GI consulted, Wally, follow recs -Dr. Tye Jaimes consulted for biopsy Leukocytosis -WBC 17.3 downtrending -Temp 100.2 overnight -ID consulted, Dr. OLIVARSE, will follow up recs -follow up urine and blood cultures Hyperglycemia -Glucose currently 236 -ISS sliding scale medium, with accuchecks -A1C pending -will continue to monitor -IVF continue CKD v NOHEMI - Cr downtrending -Fluids -Nephrology consulted, Elissa, will follow reccs Anemia -Hgb stable -1 unit PRBC transfused, appropriate response Trasaminitis -likely secondary to liver mets -liver panel follow up -will continue to monitor GI/DVT prophylaxis Protonix/Heparin Seen reviewed and discussed with attending <Yg Salguero - Last Filed: 02/23/17 13:46> Objective - Vital Signs/Intake and Output Vital Signs (last 24 hours): Temp Pulse Resp BP Pulse Ox 98.9 F 110 H 18 150/80 95 02/23/17 06:00 02/23/17 10:01 02/23/17 06:00 02/23/17 10:01 02/23/17 06:00 Intake and Output: 02/23/17 02/23/17 06:59 18:59 Intake Total 0 Output Total 325 Balance -325 - Medications Medications: Current Medications Atorvastatin Calcium (Lipitor) 40 mg PO DAILY [facility] Last Admin: 02/23/17 10:01 Dose: 40 mg Carvedilol (Coreg) 6.25 mg PO BID [facility] Last Admin: 02/23/17 10:01 Dose: 6.25 mg Ceftriaxone Sodium (Rocephin 1 Gram Ivpb) 1 gm in 100 mls @ 100 mls/hr IVPB DAILY [facility] PRN Reason: Protocol Last Admin: 02/23/17 10:02 Dose: 100 mls/hr Potassium Phosphate 15 mmole/ (Sodium Chloride) 255 mls @ 42.5 mls/hr IVPB ONCE ONE Stop: 02/23/17 16:44 Last Admin: 02/23/17 12:41 Dose: 42.5 mls/hr Potassium Phosphate 15 mmole/ (Sodium Chloride) 1,005 mls @ 125 mls/hr IV .Q8H3M [facility] Insulin Human Regular (Humulin R Low) 0 units SC ACHS [facility] PRN Reason: Protocol Last Admin: 02/23/17 12:39 Dose: 3 units Ondansetron HCl (Zofran Inj) 4 mg IVP Q6 PRN PRN Reason: Nausea/Vomiting Pantoprazole Sodium (Protonix Inj) 40 mg IVP DAILY [facility] Last Admin: 02/23/17 10:01 Dose: 40 mg - Labs Labs: 02/23/17 09:00 02/23/17 09:00 APTT 55.7 Seconds (25.1-36.5) H 02/22/17 08:30 Attending/Attestation - Attestation I have personally seen and examined this patient.: Yes I have fully participated in the care of the patient.: Yes I have reviewed all pertinent clinical information, including history, physical exam and plan: Yes Notes (Text): 02/23/17 13:40 Attending note; Patient seen and examined with resident. Patient is alert, awake. more responsive than yesterday. Moving all extremities. responding to cammands. Patient is a 66-year-old female with a past medical history of diabetes is admitted with questionable GI bleed and fall. Patient was also found to have altered mental status. CT head is negative. CT abdomen and pelvis showed perirectal /pelvic mass with extension. Possible [employer] versus GI malignancy suspected. CT abdomen also showed multiple liver and lung metastasis. WE will Call IR in AM for biopsy. Anemia; currently no active bleeding. 1 unit PRBC transfusion given. Hemoglobin 8.7 today. Hypercalcemia secondary to malignancy.could be possible etiology for altered mental status. Continue IV fluids. Got 1 dose of IV pamidronate yesterday. Calcium is trending down. Renal insufficiency ; secondary to obstructive uropathy. continue Jha catheter and monitor creatinine. Nephrology evaluation appreciated. creatinine is improving. Elevated troponin ; secondary to demand ischemia . case discussed with cardiology in detail . Discontinue aspirin, Plavix and heparin drip . Started on Coreg . echocardiogram is normal . Oncology evaluation with Dr. Jarvis appreciated. Case discussed with patient's son Fernando Elizondo in detail. PMD is DR. Linder as per patient.
[2017-02-23] MEDS ORDERED: Potassium Phosphate 3 mmol/ml Inj IV ONE (10:45)
[2017-02-23] MEDS ORDERED: Potassium Phosphate 15 MMOLE in Sodium Chloride 0.9% 250 ML IVPB ONE (10:45)
[2017-02-23] MEDS ORDERED: Magnesium Sulfate 2 GM in Sodium Chloride 0.9% 100 ML IV ONE (11:26)
--- NOTE | 2017-02-23 11:32 | PN ---
DATE: 02/23/2017 LOCATION: The patient is in room 374, bed 1. This progress note is being dictated on behalf of Dr. Ponce, who I am covering. REASON FOR CONSULTATION: Followup with elevated troponin, renal failure, metastatic carcinoma. SUBJECTIVE: The patient is still confused, did not answer questions and lying flat in bed without any respiratory distress. The patient was admitted that the patient with altered mental status and there was a bleeding in the bathroom. The patient known to have diabetes mellitus and apparently, the patient was not taking any medications. PHYSICAL EXAMINATION: VITAL SIGNS: Blood pressure 147/77, respirations 18, pulse 94, temperature 98.9. HEENT: Head is normocephalic. Eyes; pupils are normal. Conjunctivae pale. NECK: JVP low. Carotid equal. THORAX: AP diameter normal. LUNGS: Clear. CARDIOVASCULAR: S1 and S2 normal. ABDOMEN: Soft. Bowel sounds are normal. EXTREMITIES: No clubbing. No cyanosis. LABORATORY DATA: WBC 17.2, hemoglobin 7.1, hematocrit 22.7, and platelets 458. Troponin 0.23. Magnesium 1.9, phosphorus 1.6, calcium 13.8, BUN 41, creatinine 1.5. Abdomen and pelvis CT scan showed left perirectal mass contagious with the lower uterus and bladder with obstruction of the distal left ureter, appearance consistent with malignancy with expansion to the pelvic floor, pelvic adenopathy, hepatic metastasis, pulmonary metastasis, gallstones. DIAGNOSES: Troponin slightly elevated, but may be related to low hemoglobin, hematocrit, also abnormal renal function that can also falsely elevate the troponin. We cannot rule out non-ST elevation myocardial infarction. Apparently, the patient was bleeding and also the patient had metastatic disease, severe hypercalcemia, severe anemia, diabetes mellitus and hypertension. PLAN: The patient to go any anticoagulation because of bleeding and metastatic disease. Troponin might be falsely elevated due to high BUN or it may too because of low hemoglobin and hematocrit. Anyway, the patient not a candidate for any intervention from cardiac point of view, neither any anticoagulation including aspirin. The patient respiratory distress at this point. So from cardiac point of view, we are going to treat her conservatively. The patient is on carvedilol 6.25 b.i.d., Protonix 40 IV daily, Rocephin 1 g IV daily. The patient is getting IV fluid therapy with normal saline and today's labs are pending. We will continue present therapy and from tomorrow Dr. Ponce will follow the patient. Sharan Love MD
[2017-02-23] MEDS: Potassium Phosphate 15 MMOLE in Sodium Chloride 0.9% 1,000 ML IV SCH (13:50)
--- NOTE | 2017-02-23 14:26 | PN ---
DATE: SUBJECTIVE: The patient is currently seen lying in bed. She remains on IV fluid hydration Her calcium level is dropping. Her BUN and creatinine are improving. The patient is still appears to have an altered mental status. She is alert to person and place but not to time. MEDICATIONS: Medication list reviewed. The patient is currently on Coreg, insulin, Lipitor, IV fluid with potassium chloride, status post potassium phosphate rider, Protonix, Rocephin, and Zofran p.r.n. OBJECTIVE: INTAKE/OUTPUT: Intake 1435, output 325. VITAL SIGNS: Blood pressure 150/80, temperature 98.9 with a T-max of 100.2. Pulse 110, respiratory rate is 18. Pulse ox is 95%. HEENT: Exam shows her to be normocephalic, atraumatic. Conjunctivae are pale. Sclerae are nonicteric. NECK: Supple. No neck vein distention. CHEST: Clear to auscultation and percussion. No rales, rhonchi or wheezing. CARDIOVASCULAR: Shows a regular rate and rhythm with a soft systolic murmur left lower sternal border. ABDOMEN: Soft. Bowel sounds normal. No rebound or guarding. No palpable masses. EXTREMITIES: Show no lower extremity edema. No cyanosis or clubbing. LABORATORY DATA IMAGING: Abdominal CT can done on admission showed a perirectal pelvic mass, continuous with the lower uterus and bladder with obstruction of the distal left ureter. Pelvic adenopathy, hepatic masses and pulmonary masses were seen all likely to be metastatic in nature. Labs, CBC, white blood cell count 17.1, hemoglobin 8.7 post transfusion. Platelet count is 348,000. Chemistry showed normal electrolytes. BUN down to 26 from a high of 46. Creatinine is down to 1.4 from a high of 1.7, again we do not know her baseline levels. Glucose is 195. Calcium is down from 14.6-12.0. Albumin was 3.3. Phosphorus is low at 1.4. Magnesium is borderline low at 1.6. The patient's iron saturations were low. She was not given IV Venofer despite my order, she was given blood transfusions instead yesterday. Pending at this point in time, her PTH, PTH-related peptide and vitamin D levels. Her CA-125 is elevated at 414 with a normal up to 35. CEA level is elevated at 4.5. Urinalysis showed trace protein and glucose. ASSESSMENT: 1. Acute renal failure in a patient who presents with hypercalcemia likely in the setting of metastatic cancer, possibly ovarian cancer as evidenced by an elevated CA-125 level. The patient has been receiving hydration appropriately. She did receive Aredia yesterday for her hypercalcemia, calcium level is dropping. Remainder of the workup is pending. The patient had been seen by Oncology and we are waiting a tissue diagnosis. 2. Hypercalcemia with mild hypophosphatemia. The patient received phosphorus rider earlier this morning. I will switch her IV fluids over to K-Phos instead of KCl. 3. History of anemia likely secondary to underlying malignancy. As per her primary care physician, the patient is receiving blood transfusions in place IV iron and I am okay with that. 4. History of insulin-dependent diabetes mellitus. The patient will continue on sliding scale insulin. 5. Mild obstruction of her distal left ureter, perhaps evaluation of her creatinine is not full back to normal. This is secondary to the pelvic mass. 6. Altered mental status, slowly improving, likely secondary to metabolic factors secondary to her hypercalcemia. PLAN: 1. Continue IV fluid hydration, substitute K phosphate, KCl. 2. Continue to transfuse the patient to an acceptable hemoglobin. 3. evaluation p.r.n. for her obstructive left ureter. 4. Oncology evaluation ongoing. 5. The patient is status post one dose of Aredia and expect her calcium level to continue to fall. Irving Bowers MD
--- NOTE | 2017-02-23 18:58 | CP.PCM.CON ---
History of Present Illness - History of Present Illness History of Present Illness: Mrs. Golden is a 66-year-old woman with an unknown past medical history who was brought in by family after being found confused and lethargic. Labs showed leukocytosis and multiple metabolic derangements. She is currently febrile. She did not answer any questions, but did say yes when I asked her if her name was Mariaelena. She did not follow any commands, but moved all her extremities and was able to finish her food earlier, per nursing, with assistance. Review of Systems - Review of Systems Systems not reviewed;Unavailable: Altered Mental Status Past Patient History - Infectious Disease Hx of Infectious Diseases: None - Past Social History Smoking Status: Unknown If Ever Smoked - CARDIAC Hx Cardiac Disorders: Yes Hx Hypertension: Yes - ENDOCRINE/METABOLIC Hx Diabetes Mellitus Type 2: Yes - MUSCULOSKELETAL/RHEUMATOLOGICAL Hx Falls: No - PSYCHIATRIC Hx Substance Use: No (unkown) - SURGICAL HISTORY Hx Surgeries: No - ANESTHESIA Hx Anesthesia: No Meds Allergies/Adverse Reactions: Allergies Allergy/AdvReac Type Severity Reaction Status Date / Time Unobtainable Allergy Verified 02/21/17 22:00 - Medications Medications: Current Medications Atorvastatin Calcium (Lipitor) 40 mg PO DAILY [facility] Last Admin: 02/23/17 10:01 Dose: 40 mg Carvedilol (Coreg) 6.25 mg PO BID [facility] Last Admin: 02/23/17 10:01 Dose: 6.25 mg Ceftriaxone Sodium (Rocephin 1 Gram Ivpb) 1 gm in 100 mls @ 100 mls/hr IVPB DAILY [facility] PRN Reason: Protocol Last Admin: 02/23/17 10:02 Dose: 100 mls/hr Potassium Phosphate 15 mmole/ (Sodium Chloride) 1,005 mls @ 125 mls/hr IV .Q8H3M [facility] Last Admin: 02/23/17 13:50 Dose: 125 mls/hr Insulin Human Regular (Humulin R Low) 0 units SC ACHS [facility] PRN Reason: Protocol Last Admin: 02/23/17 12:39 Dose: 3 units Ondansetron HCl (Zofran Inj) 4 mg IVP Q6 PRN PRN Reason: Nausea/Vomiting Pantoprazole Sodium (Protonix Inj) 40 mg IVP DAILY [facility] Last Admin: 02/23/17 10:01 Dose: 40 mg Physical Exam - Constitutional Appears: Agitated, Confused - Head Exam Head Exam: ATRAUMATIC, NORMAL INSPECTION, NORMOCEPHALIC - Eye Exam Eye Exam: EOMI, Normal appearance, PERRL - Neck Exam Neck exam: Positive for: Normal Inspection - Respiratory Exam Respiratory Exam: Clear to Auscultation Bilateral, NORMAL BREATHING PATTERN - GI/Abdominal Exam GI & Abdominal Exam: Normal Bowel Sounds, Soft. absent: Tenderness - Rectal Exam Rectal Exam: Deferred - Back Exam Back exam: NORMAL INSPECTION - Neurological Exam Neurological exam: Altered, CN II-XII Intact Additional comments: Mute, most of the time. CN 2-12 were intact. She was able to show me two fingers, but did not follow any other commands. She moves all her extremities equally, feels pain throughout equally and did not have any focal neurological deficits. Reflexes were normal. Plantar responses were normal. Gait was not assessed. - Psychiatric Exam Psychiatric exam: Agitated - Skin Skin Exam: Dry, Intact, Normal Color, Warm Results - Vital Signs Recent Vital Signs: Last Vital Signs Temp 98.3 F 02/23/17 12:00 Pulse 93 H 02/23/17 12:00 Resp 19 02/23/17 12:00 BP 110/45 L 02/23/17 12:00 Pulse Ox 95 02/23/17 06:00 - Labs Result Diagrams: 02/23/17 09:00 02/23/17 09:00 Labs: Laboratory Results - last 24 hr 02/22/17 02/22/17 02/22/17 00:54 01:45 02:28 WBC RBC Hgb Hct MCV MCH MCHC RDW Plt Count MPV Gran % Lymph % (Auto) [place] % (Auto) Eos % (Auto) Baso % (Auto) Gran # Lymph # [place] # Eos # Baso # pO2 VBG pH VBG pCO2 VBG HCO3 VBG Total CO2 VBG O2 Sat (Calc) VBG Base Excess VBG Potassium Sodium Chloride Glucose Lactate FiO2 Potassium Carbon Dioxide Anion Gap BUN Creatinine Est GFR ( Amer) Est GFR (Non-Af Amer) POC Glucose (mg/dL) 290 H 249 H Random Glucose Hemoglobin A1c 8.0 H Uric Acid Calcium Phosphorus Magnesium Total Bilirubin AST ALT Alkaline Phosphatase Total Protein Albumin Globulin Albumin/Globulin Ratio 25-OH Vitamin D Total Procalcitonin Venous Blood Potassium 02/22/17 02/22/17 02/23/17 18:50 22:10 09:00 WBC 17.1 H RBC 3.65 Hgb 8.7 L Hct 27.1 L MCV 74.2 L MCH 23.8 L MCHC 32.1 RDW 15.3 H Plt Count 348 MPV 9.9 Gran % 85.3 H Lymph % (Auto) 7.5 L [place] % (Auto) 5.5 Eos % (Auto) 1.5 Baso % (Auto) 0.2 Gran # 14.63 H Lymph # 1.3 [place] # 1.0 H Eos # 0.3 Baso # 0.03 pO2 27 L 56 H VBG pH 7.49 H 7.54 H VBG pCO2 35.0 L 28.0 L VBG HCO3 26.7 23.9 VBG Total CO2 27.8 24.8 VBG O2 Sat (Calc) 65.6 H 95.6 H VBG Base Excess 3.5 H 2.3 H VBG Potassium 3.6 3.4 L Sodium 142.0 141.0 Chloride 109.0 H 110.0 H Glucose 162 H 200 H Lactate 2.6 H 2.3 H FiO2 21.0 21.0 Potassium Carbon Dioxide Anion Gap BUN Creatinine Est GFR ( Amer) Est GFR (Non-Af Amer) POC Glucose (mg/dL) Random Glucose Hemoglobin A1c Uric Acid Calcium Phosphorus Magnesium Total Bilirubin AST ALT Alkaline Phosphatase Total Protein Albumin Globulin Albumin/Globulin Ratio 25-OH Vitamin D Total Procalcitonin Venous Blood Potassium 3.6 3.4 L 02/23/17 02/23/17 02/23/17 09:00 09:00 09:55 WBC RBC Hgb Hct MCV MCH MCHC RDW Plt Count MPV Gran % Lymph % (Auto) [place] % (Auto) Eos % (Auto) Baso % (Auto) Gran # Lymph # [place] # Eos # Baso # pO2 VBG pH VBG pCO2 VBG HCO3 VBG Total CO2 VBG O2 Sat (Calc) VBG Base Excess VBG Potassium Sodium 141 Chloride 110 H Glucose Lactate FiO2 Potassium 3.8 Carbon Dioxide 24 Anion Gap 11 BUN 26 H Creatinine 1.4 H Est GFR ( Amer) 46 Est GFR (Non-Af Amer) 38 POC Glucose (mg/dL) Random Glucose 195 H Hemoglobin A1c Uric Acid 8.6 H Calcium 12.0 H Phosphorus 1.4 L* Magnesium 1.6 L Total Bilirubin 0.6 AST 68 H ALT 67 H Alkaline Phosphatase 199 H Total Protein 6.6 Albumin 3.3 Globulin 3.4 Albumin/Globulin Ratio 1.0 L 25-OH Vitamin D Total 24.4 L Procalcitonin 1.78 H Venous Blood Potassium - Imaging and Cardiology CT scan - head Status: Image reviewed by me, Report reviewed by me (No acute findings. ) Assessment & Plan (1) Toxic metabolic encephalopathy Assessment and Plan: The patient does not have any focal neurological deficits. Stroke is less likely. She is febrile, has leukocytosis and multiple metabolic derangements. I recommend treating the underlying cause and her mental status may improve. No further recommendations at this time. Thank you. Status: Acute Priority: High
--- NOTE | 2017-02-23 19:38 | CP.PCM.PN ---
Subjective - Date & Time of Evaluation Date of Evaluation: 02/23/17 Time of Evaluation: 17:27 - Subjective Subjective: Infectious Disease Follow Up: February 23, 2017 66 yo female presenting with AMS and lethargy. Patient lives in a 2 family house with her son and his family. The son went on a vacation 2 weeks ago and found the patient in an altered state of mind with generalized weakness at time but consistent lower body weakness. 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 The patient has not worked in the past month. When the son came back from a vacation in [place], the patient was found on the floor unclothed on the bottom half of her body. The son helped the patient to the toilet and saw blood in the bowl. During the day the patient has had periods of lucency but has remained immobile in bed. The patient has periods of being non verbal and very confused. On occassion the patient has been able to follow some simple commands. Objective - Vital Signs/Intake and Output Vital Signs (last 24 hours): Temp Pulse Resp BP Pulse Ox 98.3 F 100 H 19 120/89 95 02/23/17 12:00 02/23/17 19:17 02/23/17 12:00 02/23/17 19:17 02/23/17 06:00 Intake and Output: 02/23/17 02/24/17 18:59 06:59 Intake Total 400 Output Total 450 Balance -50 - Medications Medications: Current Medications Acetaminophen (Tylenol 325mg Tab) 650 mg PO Q6H PRN PRN Reason: fever Last Admin: 02/23/17 19:17 Dose: 650 mg Atorvastatin Calcium (Lipitor) 40 mg PO DAILY [facility] Last Admin: 02/23/17 10:01 Dose: 40 mg Carvedilol (Coreg) 6.25 mg PO BID [facility] Last Admin: 02/23/17 19:17 Dose: 6.25 mg Ceftriaxone Sodium (Rocephin 1 Gram Ivpb) 1 gm in 100 mls @ 100 mls/hr IVPB DAILY [facility] PRN Reason: Protocol Last Admin: 02/23/17 10:02 Dose: 100 mls/hr Potassium Phosphate 15 mmole/ (Sodium Chloride) 1,005 mls @ 125 mls/hr IV .Q8H3M [facility] Last Admin: 02/23/17 13:50 Dose: 125 mls/hr Insulin Human Regular (Humulin R Low) 0 units SC ACHS [facility] PRN Reason: Protocol Last Admin: 02/23/17 19:16 Dose: 4 units Ondansetron HCl (Zofran Inj) 4 mg IVP Q6 PRN PRN Reason: Nausea/Vomiting Pantoprazole Sodium (Protonix Inj) 40 mg IVP DAILY [facility] Last Admin: 02/23/17 10:01 Dose: 40 mg - Labs Labs: 02/23/17 09:00 02/23/17 09:00 APTT 55.7 Seconds (25.1-36.5) H 02/22/17 08:30 - Constitutional Appears: Toxic, Confused - Head Exam Head Exam: ATRAUMATIC, NORMOCEPHALIC - Eye Exam Eye Exam: EOMI, PERRL Pupil Exam: NORMAL ACCOMODATION, PERRL - ENT Exam ENT Exam: Mucous Membranes Moist, Normal External Ear Exam, TM's Normal Bilaterally - Neck Exam Neck Exam: Full ROM, Normal Inspection - Respiratory Exam Respiratory Exam: Clear to Ausculation Bilateral, NORMAL BREATHING PATTERN. absent: Rales, Rhonchi, Wheezes - Cardiovascular Exam Cardiovascular Exam: Tachycardia, +S1, +S2 - GI/Abdominal Exam GI & Abdominal Exam: Soft. absent: Distended, Tenderness - Extremities Exam Extremities Exam: Normal Inspection - Neurological Exam Neurological Exam: Altered Additional comments: Periods of being non-verbal, immobile. - Skin Skin Exam: Intact, Normal Color, Warm Assessment and Plan - Assessment and Plan (Free Text) Assessment: 66 yo female with leukocytosis, AMS, periods of confusion and even being nonverbal, immobility. Difficult to obtain history as the patient is currently a poor and unreliable historian. The son states that the patient (mother) was very private and didn't tell him of any medical history. At this point the patient has tachycardia, elevated troponin (NSTEMI?), AMS, question of Rectal Cancer, Leukocytosis, and elevated creatinine as well as transaminitis. Would also consider lumbar puncture on the patient and obtaining cancer markers. CT Abdomen and pelvis shows a perirectal/pelvic mass of unknown origin. There are also multiple liver and lung lesions highly suspicious of metastatic disease. Possible biopsy tomorrow. Leukocytosis has slight left shift. Continue Ceftriaxone IV for now. Thank you for allowing me to participate in the care of this patient, we will follow with you.
[2017-02-24] MEDS: Potassium Phosphate 15 MMOLE in Sodium Chloride 0.9% 1,000 ML IV SCH ×2 (03:51→13:07)
--- NOTE | 2017-02-24 06:35 | CP.PCM.PN ---
Subjective - Date & Time of Evaluation Date of Evaluation: 02/24/17 Time of Evaluation: 06:31 - Subjective Subjective: Ms. Golden was seen and examined at the bedside. She is able to verbalize her name, date of , and place (hospital). She has episodes of confusion, but able to redirect accordingly. She denies any headache, blurred vision, nausea, or vomiting. She had a febrile episode early last night. Tylenol was given. At present, her temp is 98.1. Objective - Vital Signs/Intake and Output Vital Signs (last 24 hours): Temp Pulse Resp BP Pulse Ox 98 F 103 H 18 130/72 98 02/24/17 06:00 02/24/17 06:00 02/24/17 06:00 02/24/17 06:00 02/24/17 06:00 Intake and Output: 02/23/17 02/24/17 18:59 06:59 Intake Total 400 Output Total 450 Balance -50 - Medications Medications: Current Medications Acetaminophen (Tylenol 325mg Tab) 650 mg PO Q6H PRN PRN Reason: fever Last Admin: 02/23/17 19:17 Dose: 650 mg Atorvastatin Calcium (Lipitor) 40 mg PO DAILY [facility] Last Admin: 02/23/17 10:01 Dose: 40 mg Carvedilol (Coreg) 6.25 mg PO BID [facility] Last Admin: 02/23/17 19:17 Dose: 6.25 mg Ceftriaxone Sodium (Rocephin 1 Gram Ivpb) 1 gm in 100 mls @ 100 mls/hr IVPB DAILY [facility] PRN Reason: Protocol Last Admin: 02/23/17 10:02 Dose: 100 mls/hr Potassium Phosphate 15 mmole/ (Sodium Chloride) 1,005 mls @ 125 mls/hr IV .Q8H3M [facility] Last Admin: 02/24/17 03:51 Dose: 125 mls/hr Insulin Human Regular (Humulin R Low) 0 units SC ACHS [facility] PRN Reason: Protocol Last Admin: 02/23/17 22:20 Dose: Not Given Ondansetron HCl (Zofran Inj) 4 mg IVP Q6 PRN PRN Reason: Nausea/Vomiting Pantoprazole Sodium (Protonix Inj) 40 mg IVP DAILY [facility] Last Admin: 02/23/17 10:01 Dose: 40 mg - Labs Labs: 02/23/17 09:00 02/23/17 09:00 APTT 55.7 Seconds (25.1-36.5) H 02/22/17 08:30 - Constitutional Appears: No Acute Distress - Head Exam Head Exam: ATRAUMATIC - Neurological Exam Neurological Exam: Alert, Awake Neuro motor strength exam: Left Upper Extremity: 5, Right Upper Extremity: 5, Left Lower Extremity: 5, Right Lower Extremity: 5 Additional comments: She was able to show me two fingers and able to follow field accommodation, but did not follow any other commands such as finger to nose accommodation. She moves all her extremities equally, feels pain throughout equally and did not have any focal neurological deficits. Reflexes were normal. Plantar responses were normal. Assessment and Plan (1) Toxic metabolic encephalopathy Assessment & Plan: Case discussed with Dr. Raoms, continue all current medical regimen. PT/OT eval and treat. DVT prophylaxis. Status: Acute
[2017-02-24 07:27] LABS: BASO # 0.03 K/mm3 (0.0-2.0); BASO % 0.2 % (0.0-3.0); EOS # 0.3 (0.0-0.7); EOS % 1.8 % (1.5-5.0); GRAN # 12.86 (1.4-6.5); GRAN % 84.7 % (50.0-68.0); HEMATOCRIT 24.9 % (36.0-48.0); LYMPH # 1.2 (1.2-3.4); MEAN CELL VOLUME 74.1 fl (80.0-105.0); MEAN CORPUSCULAR HEMOGLOBIN 23.5 pg (25.0-35.0); MEAN CORPUSCULAR HGB CONC 31.7 g/dl (31.0-37.0); MEAN PLATELET VOLUME 9.8 fl (7.0-11.0); MONO # 0.8 (0.1-0.6); MONO % 5.3 % (1.0-6.0); RED CELL DISTRIBUTION WIDTH 15.9 % (11.5-14.5); WHITE BLOOD COUNT 15.2 10^3/ul (4.5-11.0)
[2017-02-24 08:10] LABS: ALB/GLOB RATIO 0.9 (1.1-1.8); BILIRUBIN,TOTAL 0.5 mg/dL (0.2-1.3); CALCIUM 10.8 mg/dL (8.4-10.5); POTASSIUM 3.9 mmol/L (3.6-5.0); TOTAL PROTEIN 6.2 g/dL (5.8-8.3)
[2017-02-24] MEDS: Insulin Reg-LOW-Coverage SC SCH ×4 (09:03→22:26)
[2017-02-24] MEDS: cefTRIAXone 1 gm 1 GM/100 ML BAG IVPB SCH (09:09)
--- NOTE | 2017-02-24 12:49 | PN ---
DATE: SUBJECTIVE: The patient tachycardia on the monitor. The patient denies any chest pain or dizziness. PHYSICAL EXAMINATION: VITAL SIGNS: Blood pressure 130/70, heart rate 103, temperature 100.1, reviewed her and today is 98 and respirations 18. HEENT: Pale conjunctivae. CHEST: Diminished air entry over the bases. HEART: S1 and S2 regular. EXTREMITIES: No edema. LABORATORY DATA: Hemoglobin and hematocrit 7.9 and 24.9, white count 16.3 and platelet count 325,000. SMA-7: Sodium 144, potassium 3.9, chloride 115, CO2 22, glucose 185, BUN 20, creatinine 1.4, phosphorus yesterday was 1.4 and magnesium 1.6. ASSESSMENT: 1. Altered mental status. 2. Metastatic colon carcinoma. 3. Sinus tachycardia with unspecific ST-T wave changes on admission. 4. Anemia. 5. Hypomagnesemia and hypophosphatemia. 6. Borderline troponin elevation. RECOMMENDATIONS: I did review the most recent echocardiography study that was on 2 days ago which revealed normal left ventricular size with mild concentric LVH and normal ejection fraction and normal segmental wall motion with grade I abnormal relaxation pattern. Continue current Coreg 6.25 mg twice a day and Lipitor 40 mg once a day. The patient is currently receiving potassium phosphate intravenous placement and magnesium was replaced yesterday with a total of 2 g intravenously. Follow up basic chemistry labs tomorrow. I requested to discontinue telemetry. No invasive cardiac workup is justified. Wellington Ponce MD
[2017-02-24] MEDS ORDERED: Magnesium Sulfate 1 gm in D5W 1 GM/100 ML BAG IVPB ONE (15:07)
[2017-02-24] MEDS ORDERED: POTASSIUM PHOSPHATE IV SCH (15:08)
[2017-02-24] MEDS ORDERED: SODIUM CHLORIDE IV SCH (15:08)
[2017-02-24] MEDS ORDERED: POTASSIUM PHOSPHATE IV NR (15:30)
[2017-02-24] MEDS ORDERED: SODIUM CHLORIDE IV NR (15:30)
[2017-02-24 15:36] LABS: MAGNESIUM 1.9 mg/dL (1.7-2.2); PHOSPHOROUS 2.4 mg/dL (2.5-4.5)
--- NOTE | 2017-02-24 18:05 | CP.PCM.PN ---
<Jake Apodaca - Last Filed: 02/24/17 18:25> Subjective - Date & Time of Evaluation Date of Evaluation: 02/24/17 Time of Evaluation: 07:00 - Subjective Subjective: Medicine Progress Note for Dr. Rosaura Sr DO PGY - 1 Pt s/e bedside. History limited 2/2 patient being slightly confused, but not altered. Pt denied any complaints, but history limited Objective - Vital Signs/Intake and Output Vital Signs (last 24 hours): Temp Pulse Resp BP Pulse Ox 98.4 F 84 20 130/80 97 02/24/17 16:30 02/24/17 16:30 02/24/17 16:30 02/24/17 16:30 02/24/17 16:30 Intake and Output: 02/24/17 02/24/17 06:59 18:59 Intake Total 240 Output Total 300 Balance -60 - Medications Medications: Current Medications Acetaminophen (Tylenol 325mg Tab) 650 mg PO Q6H PRN PRN Reason: fever Last Admin: 02/23/17 19:17 Dose: 650 mg Atorvastatin Calcium (Lipitor) 40 mg PO DAILY [facility] Last Admin: 02/24/17 09:10 Dose: 40 mg Carvedilol (Coreg) 6.25 mg PO BID [facility] Last Admin: 02/24/17 17:39 Dose: 6.25 mg Ceftriaxone Sodium (Rocephin 1 Gram Ivpb) 1 gm in 100 mls @ 100 mls/hr IVPB DAILY [facility] PRN Reason: Protocol Last Admin: 02/24/17 09:09 Dose: 100 mls/hr Insulin Human Regular (Humulin R Low) 0 units SC ACHS [facility] PRN Reason: Protocol Last Admin: 02/24/17 17:39 Dose: 3 units Ondansetron HCl (Zofran Inj) 4 mg IVP Q6 PRN PRN Reason: Nausea/Vomiting Pantoprazole Sodium (Protonix Inj) 40 mg IVP DAILY [facility] Last Admin: 02/24/17 09:10 Dose: 40 mg - Labs Labs: 02/24/17 06:50 02/24/17 06:50 APTT 55.7 Seconds (25.1-36.5) H 02/22/17 08:30 - Additional Findings Additional findings: Phys Exam: VS as below Const'l: a&o x 4, but exhibits selective mutism; nad Head/Neck: neck supple, no jvd, trachea midline, carotid midline, no cervical /head mass Eyes: bere, nonicteric sclera, eom intact ENT: auditory acuity grossly intact, throat not congested, no nasal deformity Cardio: rrr, no m/r/g, no carotid bruit, nml s1, s2 Pulm: no accessory muscle use, equal nml breath sounds bilaterally, ctab Abd: s/nt/nd, nbs x 4 q, no palpable masses Derm: no rashes, no ulcers, no lesions Extr: no edema, no cyanosis, no calf tenderness, no lesions, no varicosities Neuro: cn II-XII grossly intact, ue and le 5/5 muscle strength bilaterally, no los ue, le bilaterally and core Assessment and Plan - Assessment and Plan (Free Text) Assessment: A/P 66 year old female with unknown past medical history presents to the ED with AMS and lethargy. AMS secondary hypercalcemia -CT Head negative for acute changes -Ammonia level low -Ca: 14.6 on admission, 10.3 now -IV fluids NS@150, continue to monitor and force diuresis as necessary -MRI brain ordered NSTEMI - Uncertain -EKG;Sinus Tachycardic at [address] Elevations in ED -CBC ordered and reviewed -Troponin .3 downtrending - most likely 2.2 NOHEMI -Lipitor - No longer need ASA/Plavix -Metoprolol 25 mg BID as per Dr. Love and Dr. Gibson -A1C pending -TSH wnl -Lipid Panel wnl Possible Cancer of Rectum with Metastasis -CT:Abdomen/Pelvis: Left perirectal/pelvic mass contiguous with the lower uterus and bladder with obstruction of the distal left ureter, appearance is consistent with malignancy extension into the pelvic floor cannot be excluded; pelvic adenopathy; hepatic metastases; pulmonary metastases; gallstones -Oncology Consulted, Dr. Jarvis Consulted -GI consulted, Wally, follow recs -Dr. Tye Jaimes consulted for biopsy: pending Leukocytosis -WBC 17.3 downtrending -Temp 100.2 overnight -ID consulted, Dr. OLIVARES, will follow up recs -follow up urine and blood cultures Hyperglycemia -Glucose currently 236 -ISS sliding scale medium, with accuchecks -A1C: 8.0 -IVF continue CKD v NOHEMI - Cr downtrending - Fluids - Nephrology consulted, Elissa, will follow recs ARF likely 2/2 METS cancer. Pt getting hydration and Aredia K-phos for her hypophosphatemia Mild obstruction of left ureter:2/2 to pelvic mass Continue IVF, Kphos; s/p dose of Aredia, patient's calcium improved - In light of the above, patient's AMS could be 2/2 ureteral obstruction Anemia -Hgb stable -1 unit PRBC transfused, appropriate response Trasaminitis -likely secondary to liver mets -liver panel follow up -will continue to monitor GI/DVT prophylaxis Protonix/Heparin Seen reviewed and discussed with attending <Emily Kaplan - Last Filed: 02/25/17 15:19> Objective - Vital Signs/Intake and Output Vital Signs (last 24 hours): Temp Pulse Resp BP Pulse Ox 99.8 F H 111 H 22 153/73 H 96 02/25/17 08:35 02/25/17 10:50 02/25/17 08:35 02/25/17 10:50 02/25/17 08:35 Intake and Output: 02/25/17 02/25/17 06:59 18:59 Intake Total 1510 Output Total 525 Balance 985 - Medications Medications: Current Medications Acetaminophen (Tylenol 325mg Tab) 650 mg PO Q6H PRN PRN Reason: fever Last Admin: 02/25/17 06:11 Dose: 650 mg Atorvastatin Calcium (Lipitor) 40 mg PO DAILY [facility] Last Admin: 02/25/17 10:51 Dose: 40 mg Carvedilol (Coreg) 6.25 mg PO BID [facility] Last Admin: 02/25/17 10:50 Dose: 6.25 mg Ceftriaxone Sodium (Rocephin 1 Gram Ivpb) 1 gm in 100 mls @ 100 mls/hr IVPB DAILY [facility] PRN Reason: Protocol Last Admin: 02/25/17 10:49 Dose: 100 mls/hr Insulin Human Regular (Humulin R Low) 0 units SC ACHS [facility] PRN Reason: Protocol Last Admin: 02/25/17 10:51 Dose: 3 units Ondansetron HCl (Zofran Inj) 4 mg IVP Q6 PRN PRN Reason: Nausea/Vomiting Pantoprazole Sodium (Protonix Inj) 40 mg IVP DAILY [facility] Last Admin: 02/25/17 10:49 Dose: 40 mg - Labs Labs: 02/25/17 05:30 02/25/17 06:00 APTT 55.7 Seconds (25.1-36.5) H 02/22/17 08:30 Attending/Attestation - Attestation I have personally seen and examined this patient.: Yes I have fully participated in the care of the patient.: Yes I have reviewed all pertinent clinical information, including history, physical exam and plan: Yes Notes (Text): I have seen and examined the patient at bedside. Agree with the above note with the following additions/ exceptions: Briefly this is 66 year old female with history of DM-2 who came for evaluation of AMS and found to have renal insufficiency (cr 1.7), elevated troponin, leukocytosis, elevated LA, anemia ( 7.7), electrolyte abnormalities inckuding hypercalcemia (14.6) and uterine vs GI mass on CT scan. This is patients first visit to our facility and there are no previous labs to compare with. Today patient appears well however she did not answer any questions for me. As per nurse, patient is selectively mute. She does not appear to have nay focal deficits. CT head negative. As she is not back to baseline, will do MRI brain. Patient was given aredia which is helping to lower calcium. Hypercalcemia is due to malignancy. Her renal insufficiency is probably secondary to obstructive uropathy. Discussed with Dr Tye Jaimes regarding possible biopsy of liver mets. Patient has anemia s/p 1 unit prbc. There is no active bleeding. Patient had elevated troponin which is secondary to demand ischemia. Aspirin, plavix and heparin was discontinued. Continue coreg. Echo is normal. Upon discharge patient will follow up with Dr Linder. Dr Emily Kaplan.
--- NOTE | 2017-02-24 19:36 | CP.PCM.PN ---
Subjective - Date & Time of Evaluation Date of Evaluation: 02/24/17 Time of Evaluation: 16:30 - Subjective Subjective: Infectious Disease Follow Up: February 24, 2017 66 yo female presenting with AMS and lethargy. Patient lives in a 2 family house with her son and his family. The son went on a vacation 2 weeks ago and found the patient in an altered state of mind with generalized weakness at time but consistent lower body weakness. 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 The patient has not worked in the past month. When the son came back from a vacation in [place], the patient was found on the floor unclothed on the bottom half of her body. The son helped the patient to the toilet and saw blood in the bowl. During the day the patient has had periods of lucency but has remained immobile in bed. The patient has periods of being non verbal and very confused. The patient has been able to follow simple commands more consistently as of late. Objective - Vital Signs/Intake and Output Vital Signs (last 24 hours): Temp Pulse Resp BP Pulse Ox 98.4 F 84 20 130/80 97 02/24/17 16:30 02/24/17 16:30 02/24/17 16:30 02/24/17 16:30 02/24/17 16:30 Intake and Output: 02/24/17 02/24/17 06:59 18:59 Intake Total 240 Output Total 300 Balance -60 - Medications Medications: Current Medications Acetaminophen (Tylenol 325mg Tab) 650 mg PO Q6H PRN PRN Reason: fever Last Admin: 02/23/17 19:17 Dose: 650 mg Atorvastatin Calcium (Lipitor) 40 mg PO DAILY [facility] Last Admin: 02/24/17 09:10 Dose: 40 mg Carvedilol (Coreg) 6.25 mg PO BID [facility] Last Admin: 02/24/17 17:39 Dose: 6.25 mg Ceftriaxone Sodium (Rocephin 1 Gram Ivpb) 1 gm in 100 mls @ 100 mls/hr IVPB DAILY [facility] PRN Reason: Protocol Last Admin: 02/24/17 09:09 Dose: 100 mls/hr Insulin Human Regular (Humulin R Low) 0 units SC ACHS [facility] PRN Reason: Protocol Last Admin: 02/24/17 17:39 Dose: 3 units Ondansetron HCl (Zofran Inj) 4 mg IVP Q6 PRN PRN Reason: Nausea/Vomiting Pantoprazole Sodium (Protonix Inj) 40 mg IVP DAILY [facility] Last Admin: 02/24/17 09:10 Dose: 40 mg - Labs Labs: 02/24/17 06:50 02/24/17 06:50 APTT 55.7 Seconds (25.1-36.5) H 02/22/17 08:30 - Constitutional Appears: Toxic, Confused - Head Exam Head Exam: ATRAUMATIC, NORMOCEPHALIC - Eye Exam Eye Exam: EOMI, PERRL Pupil Exam: NORMAL ACCOMODATION, PERRL - ENT Exam ENT Exam: Mucous Membranes Moist, Normal External Ear Exam, TM's Normal Bilaterally - Neck Exam Neck Exam: Full ROM, Normal Inspection - Respiratory Exam Respiratory Exam: Clear to Ausculation Bilateral, NORMAL BREATHING PATTERN. absent: Rales, Rhonchi, Wheezes - Cardiovascular Exam Cardiovascular Exam: Tachycardia, +S1, +S2 - GI/Abdominal Exam GI & Abdominal Exam: Soft. absent: Distended, Tenderness - Extremities Exam Extremities Exam: Normal Inspection - Neurological Exam Neurological Exam: Awake Additional comments: fatigued and lethargic. - Skin Skin Exam: Intact, Normal Color, Warm Assessment and Plan - Assessment and Plan (Free Text) Assessment: 66 yo female with leukocytosis, AMS, periods of confusion and even being nonverbal, immobility. Difficult to obtain history as the patient is currently a poor and unreliable historian. The son states that the patient (mother) was very private and didn't tell him of any medical history. At this point the patient has tachycardia, elevated troponin (NSTEMI?), AMS, question of Rectal Cancer, Leukocytosis, and elevated creatinine as well as transaminitis. Would also consider lumbar puncture on the patient and obtaining cancer markers. CT Abdomen and pelvis shows a perirectal/pelvic mass of unknown origin. There are also multiple liver and lung lesions highly suspicious of metastatic disease. Possible biopsy by Dr. Tye Jaimes. Leukocytosis has slight left shift. Continue Ceftriaxone IV for now. Thank you for allowing me to participate in the care of this patient, we will follow with you.
--- NOTE | 2017-02-24 20:52 | PN ---
DATE: 02/24/2017 SUBJECTIVE: The patient is seen lying in bed. She does not appear to be in any kind of distress, but she is apathetic, not really responding to questions. She denies any pain. She denies any shortness of breath. PHYSICAL EXAMINATION: GENERAL: Elderly lady, lying in bed. VITAL SIGNS: Blood pressure 130/72, heart rate 103, respiratory rate 18, temperature 98. HEENT: Normocephalic, atraumatic. NECK: Supple, no JVD. LUNGS: Bilateral equal air entry, . CARDIAC: S1 and S2, regular rate and rhythm, no murmur, no rub. ABDOMEN: Soft, nondistended, nontender, bowel sounds present. EXTREMITIES: No lower extremity edema. INTAKE AND OUTPUT: 1435/325. LABORATORY DATA: WBC 15, hemoglobin 7.9, hematocrit 25, platelets 325. Sodium 144, potassium 3.9, chloride 113, CO2 of 22, BUN 20, creatinine 1.4, glucose 185, calcium 10.8, phosphorus was 1.4 yesterday, magnesium was 1.6 yesterday, AST 64, ALT 58, albumin 3.0. Urinalysis; light yellow, slightly cloudy, pH of 5.5, specific gravity 1.025, protein 30, glucose 500, ketones trace, blood trace intact. Urine culture, no growth. CURRENT MEDICATIONS: Coreg 6.25 b.i.d., insulin, Lipitor, potassium phosphate 15 millimoles in normal saline at 125 mL/hour, Protonix, Rocephin, Tylenol, and Zofran. ASSESSMENT: 1. Hypophosphatemia. 2. Hypomagnesemia. 3. Resolving acute kidney injury. 4. Resolving hypercalcemia. 5. Anemia. 6. Underlying ovarian cancer? 7. Altered mental status, improving? PLAN: 1. Continue IV fluids with potassium phosphate. 2. Replace magnesium. 3. Check electrolytes everyday. 4. Continue to monitor electrolytes closely, the patient received Aredia one dose. 5. Change IV fluids to half-normal saline since sodium is 144. Lorena Connell MD [facility] # [id number]
--- NOTE | 2017-02-25 01:55 | CON ---
DATE: 02/24/2017 TIME: 7:54 p.m. CHIEF COMPLAINT AND HISTORY OF PRESENT ILLNESS: This is a 66-year-old female, who was admitted for weakness and mental status changes. CT scan revealed pulmonary and liver metastases with a pelvic mass present. There is mild left hydronephrosis. I reviewed the CT scan. The appearance is consistent with metastatic cervical or uterine CA. I spoke briefly with her son. She has a history of diabetes. We will tentatively schedule for a CT liver biopsy. The procedure was explained to the son and consent obtained. Tye Jaimes MD
[2017-02-25] MEDS ORDERED: SODIUM CHLORIDE IVPB ONE ×2 (03:17→03:50)
[2017-02-25] MEDS ORDERED: POTASSIUM PHOSPHATE IVPB ONE ×2 (03:17→03:50)
[2017-02-25 06:27] LABS: MEAN CELL VOLUME 72.5 fl (80.0-105.0); MEAN CORPUSCULAR HEMOGLOBIN 23.2 pg (25.0-35.0); MEAN CORPUSCULAR HGB CONC 32.1 g/dl (31.0-37.0); MEAN PLATELET VOLUME 9.9 fl (7.0-11.0); RED CELL DISTRIBUTION WIDTH 16.6 % (11.5-14.5); WHITE BLOOD COUNT 16.5 10^3/ul (4.5-11.0)
--- NOTE | 2017-02-25 06:27 | CP.PCM.PN ---
Subjective - Date & Time of Evaluation Date of Evaluation: 02/25/17 Time of Evaluation: 06:24 - Subjective Subjective: Ms. Ferrell was seen and examined at the bedside. She is alert, able to verbalize where is , but unable to state time and person. She thinks its 2016 and he president is Wily). She is able to complain of feeling cold and denies any headache, dizziness, numbness, nausea, or vomiting. She had an episode of low grade fever overnight with T-max of 100.2, tylenol was given. Objective - Vital Signs/Intake and Output Vital Signs (last 24 hours): Temp Pulse Resp BP Pulse Ox 100.4 F H 84 20 130/80 97 02/25/17 06:11 02/24/17 16:30 02/24/17 16:30 02/24/17 16:30 02/24/17 16:30 Intake and Output: 02/24/17 02/25/17 18:59 06:59 Intake Total 1390 Output Total 200 Balance 1190 - Medications Medications: Current Medications Acetaminophen (Tylenol 325mg Tab) 650 mg PO Q6H PRN PRN Reason: fever Last Admin: 02/25/17 06:11 Dose: 650 mg Atorvastatin Calcium (Lipitor) 40 mg PO DAILY [facility] Last Admin: 02/24/17 09:10 Dose: 40 mg Carvedilol (Coreg) 6.25 mg PO BID [facility] Last Admin: 02/24/17 17:39 Dose: 6.25 mg Ceftriaxone Sodium (Rocephin 1 Gram Ivpb) 1 gm in 100 mls @ 100 mls/hr IVPB DAILY [facility] PRN Reason: Protocol Last Admin: 02/24/17 09:09 Dose: 100 mls/hr Potassium Phosphate 15 mmole/ (Sodium Chloride) 1,005 mls @ 125 mls/hr IVPB ONCE ONE Stop: 02/25/17 11:19 Last Admin: 02/25/17 04:41 Dose: 125 mls/hr Insulin Human Regular (Humulin R Low) 0 units SC ACHS [facility] PRN Reason: Protocol Last Admin: 02/24/17 22:26 Dose: 3 units Ondansetron HCl (Zofran Inj) 4 mg IVP Q6 PRN PRN Reason: Nausea/Vomiting Pantoprazole Sodium (Protonix Inj) 40 mg IVP DAILY [facility] Last Admin: 02/24/17 09:10 Dose: 40 mg - Labs Labs: 02/24/17 06:50 02/24/17 06:50 APTT 55.7 Seconds (25.1-36.5) H 02/22/17 08:30 - Constitutional Appears: No Acute Distress - Head Exam Head Exam: ATRAUMATIC - Neurological Exam Neurological Exam: Alert, Awake Additional comments: Neurological improved from previous examination. She is able to verbalize place , follow commands such as field and finger to nose accommodation. She is able to participate with assessment. Sensation remains intact. Assessment and Plan (1) Toxic metabolic encephalopathy Assessment & Plan: Case discussed with Dr. Ramos, She is febrile, has leukocytosis and multiple metabolic derangements. Recommend treating the underlying cause and her mental status may improve. Status: Acute
[2017-02-25 06:37] LABS: HEMATOCRIT 23.7 % (36.0-48.0)
[2017-02-25 07:18] LABS: ALB/GLOB RATIO 0.8 (1.1-1.8); BILIRUBIN,TOTAL 0.6 mg/dL (0.2-1.3); CALCIUM 9.7 mg/dL (8.4-10.5); POTASSIUM 4.4 mmol/L (3.6-5.0); TOTAL PROTEIN 6.5 g/dL (5.8-8.3)
--- NOTE | 2017-02-25 09:42 | MRI ---
PROCEDURE: MRI BRAIN WITHOUT CONTRAST HISTORY: AMS COMPARISON: None. TECHNIQUE: Multiplanar, multisequence MR images of the brain were obtained without intravenous contrast enhancement. FINDINGS: HEMORRHAGE: None DWI: No evidence of an acute or early subacute infarction. BRAIN PARENCHYMA: No mass effect or edema. No atrophy or chronic microvascular ischemic changes. VENTRICLES: Unremarkable. No hydrocephalus. CRANIUM: Unremarkable. ORBITS: Grossly unremarkable. PARANASAL SINUSES/MASTOIDS: Clear VASCULAR SYSTEM: Skull base flow voids intact. OTHER FINDINGS: None. IMPRESSION: Unremarkable non contrast enhanced MRI of the brain.
[2017-02-25] MEDS: cefTRIAXone 1 gm 1 GM/100 ML BAG IVPB SCH (10:49)
[2017-02-25] MEDS: Insulin Reg-LOW-Coverage SC SCH ×2 (10:51→22:39)
--- NOTE | 2017-02-25 11:47 | CP.PCM.CON ---
History of Present Illness - History of Present Illness History of Present Illness: Palliative consult requested by Dr Annette Kaplan Reason: Goals of care 66 year old female with unknown medical history who presented with altered mental status and lethargy.She was found on the floor by her son. Chest x-ray showed no active disease. CT of Ab/Pel. showed left perirectal / pelvic mass contiguous with the lower uterus and bladder causing obstruction of the left distal ureter, consistent with malignancy, extension into the pelvic floor, pelvic adenopathy, hepatic metastasis, pulmonary metastasis and gall stones. CT of head and MRI of brain revealed no abnormal findings. Labs, leukocytosis, anemia,hyperglycemia, hypercalcemia,hypokalemia,tropinin 0.30, elevated LFT's & Lipase, CEA 4.5. CA 125 414. PMHx: probable DM. Social History:Review of medial record indicates she is a non smoker, no substance abuse.Lives in the basement apartment of her sons home. Advance Care Planning:The patient does not have an Advance Directive. Review of Systems: As per HPI, patient has altered mental status unable to obtain comprehensive review. Past Patient History - Infectious Disease Hx of Infectious Diseases: None - Past Social History Smoking Status: Unknown If Ever Smoked - CARDIAC Hx Cardiac Disorders: Yes Hx Hypertension: Yes - ENDOCRINE/METABOLIC Hx Diabetes Mellitus Type 2: Yes - MUSCULOSKELETAL/RHEUMATOLOGICAL Hx Falls: No - PSYCHIATRIC Hx Substance Use: No (unobtainable) - SURGICAL HISTORY Hx Surgeries: No - ANESTHESIA Hx Anesthesia: No Meds Allergies/Adverse Reactions: Allergies Allergy/AdvReac Type Severity Reaction Status Date / Time Unobtainable Allergy Verified 02/21/17 22:00 - Medications Medications: Current Medications Acetaminophen (Tylenol 325mg Tab) 650 mg PO Q6H PRN PRN Reason: fever Last Admin: 02/25/17 06:11 Dose: 650 mg Atorvastatin Calcium (Lipitor) 40 mg PO DAILY [facility] Last Admin: 02/25/17 10:51 Dose: 40 mg Carvedilol (Coreg) 6.25 mg PO BID [facility] Last Admin: 02/25/17 10:50 Dose: 6.25 mg Ceftriaxone Sodium (Rocephin 1 Gram Ivpb) 1 gm in 100 mls @ 100 mls/hr IVPB DAILY [facility] PRN Reason: Protocol Last Admin: 02/25/17 10:49 Dose: 100 mls/hr Insulin Human Regular (Humulin R Low) 0 units SC ACHS [facility] PRN Reason: Protocol Last Admin: 02/25/17 10:51 Dose: 3 units Ondansetron HCl (Zofran Inj) 4 mg IVP Q6 PRN PRN Reason: Nausea/Vomiting Pantoprazole Sodium (Protonix Inj) 40 mg IVP DAILY [facility] Last Admin: 02/25/17 10:49 Dose: 40 mg Physical Exam - Constitutional Appears: Chronically Ill - Head Exam Head Exam: NORMAL INSPECTION - Eye Exam Eye Exam: Normal appearance, PERRL - ENT Exam ENT Exam: Mucous Membranes Moist, Normal Oropharynx - Neck Exam Neck exam: Positive for: Normal Inspection - Respiratory Exam Respiratory Exam: Decreased Breath Sounds, NORMAL BREATHING PATTERN - Cardiovascular Exam Cardiovascular Exam: REGULAR RHYTHM, +S1, +S2 - GI/Abdominal Exam GI & Abdominal Exam: Firm, Normal Bowel Sounds - Extremities Exam Extremities exam: Positive for: pedal edema, pedal pulses present - Back Exam Back exam: NORMAL INSPECTION - Neurological Exam Neurological exam: Altered - Skin Skin Exam: Dry, Warm - Additional Findings Additional findings: Palliative performance scale rating 40% Results - Vital Signs Recent Vital Signs: Last Vital Signs Temp 99.8 F H 02/25/17 08:35 Pulse 111 H 02/25/17 10:50 Resp 22 02/25/17 08:35 BP 153/73 H 02/25/17 10:50 Pulse Ox 96 02/25/17 08:35 - Labs Result Diagrams: 02/25/17 05:30 02/25/17 06:00 Labs: Laboratory Results - last 24 hr 02/22/17 02/24/17 02/24/17 06:00 09:25 15:00 WBC RBC Hgb Hct MCV MCH MCHC RDW Plt Count MPV Sodium Potassium Chloride Carbon Dioxide Anion Gap BUN Creatinine Est GFR ( Amer) Est GFR (Non-Af Amer) POC Glucose (mg/dL) Random Glucose Calcium Phosphorus 2.4 L Magnesium 1.9 Total Bilirubin AST ALT Alkaline Phosphatase Total Protein Albumin Globulin Albumin/Globulin Ratio PTH Intact Whole Molec 6 L Hepatitis A IgM Ab Negative Hep Bs Antigen Negative Hep B Core IgM Ab Negative Hepatitis C Antibody Negative Blood Type Antibody Screen Crossmatch BBK History Checked 02/24/17 02/24/17 02/25/17 16:54 21:21 05:30 WBC 16.5 H RBC 3.27 L Hgb 7.6 L Hct 23.7 L MCV 72.5 L MCH 23.2 L MCHC 32.1 RDW 16.6 H Plt Count 350 MPV 9.9 Sodium Potassium Chloride Carbon Dioxide Anion Gap BUN Creatinine Est GFR ( Amer) Est GFR (Non-Af Amer) POC Glucose (mg/dL) 279 H 373 H Random Glucose Calcium Phosphorus Magnesium Total Bilirubin AST ALT Alkaline Phosphatase Total Protein Albumin Globulin Albumin/Globulin Ratio PTH Intact Whole Molec Hepatitis A IgM Ab Hep Bs Antigen Hep B Core IgM Ab Hepatitis C Antibody Blood Type Antibody Screen Crossmatch BBK History Checked 02/25/17 02/25/17 02/25/17 06:00 06:00 07:46 WBC RBC Hgb Hct MCV MCH MCHC RDW Plt Count MPV Sodium 141 Potassium 4.4 Chloride 109 H Carbon Dioxide 22 Anion Gap 13 BUN 17 Creatinine 1.5 H Est GFR ( Amer) 42 Est GFR (Non-Af Amer) 35 POC Glucose (mg/dL) 252 H Random Glucose 212 H Calcium 9.7 Phosphorus Magnesium Total Bilirubin 0.6 AST 91 H D ALT 81 H Alkaline Phosphatase 417 H D Total Protein 6.5 Albumin 3.0 Globulin 3.5 Albumin/Globulin Ratio 0.8 L PTH Intact Whole Molec Hepatitis A IgM Ab Hep Bs Antigen Hep B Core IgM Ab Hepatitis C Antibody Blood Type B POSITIVE Antibody Screen Negative Crossmatch See Detail BBK History Checked Patient has bt Assessment & Plan - Assessment and Plan (Free Text) Assessment: 66 year old female with unknown medical history who presented with altered mental status, pelvic mass with probable metastasis to liver and lungs, hypercalcemia, leukocytosis, anemia, transaminitis, NOHEMI, elevated CA 125 and CEA ,left ureteral obstruction. The patient is seen lying in bed. She shakes her head yes or no but not participating in conversation.Intermittently follows command. Denies pain. Palliative services intends to follow patient in order to to provide psychosocial support and assistance in establishing goals of care. Unable to reach patients son. Will follow. Plan: Palliative support in establishing goals of care and advance care planning.
--- NOTE | 2017-02-25 13:47 | CP.PCM.PN ---
<Jake Apodaca - Last Filed: 02/25/17 13:42> Subjective - Date & Time of Evaluation Date of Evaluation: 02/25/17 Time of Evaluation: 10:45 - Subjective Subjective: Medicine progress note for Dr. Kaplan - TKS, DO PGY - 1, Pt s/e bedside. History was obtained by Dr. Kaplan. Pt states that she is depressed because her son does not take proper care of her. He is trying to kick her out of his house. She has contacted her other children in [place], who are now here and are building a new house for her. She still is sad that her son does not take care of her. She does not have any medical complaints, and is still elusive about her medical history. No further complaints. Objective - Vital Signs/Intake and Output Vital Signs (last 24 hours): Temp Pulse Resp BP Pulse Ox 99.8 F H 111 H 22 153/73 H 96 02/25/17 08:35 02/25/17 10:50 02/25/17 08:35 02/25/17 10:50 02/25/17 08:35 Intake and Output: 02/25/17 02/25/17 06:59 18:59 Intake Total 1510 Output Total 525 Balance 985 - Medications Medications: Current Medications Acetaminophen (Tylenol 325mg Tab) 650 mg PO Q6H PRN PRN Reason: fever Last Admin: 02/25/17 06:11 Dose: 650 mg Atorvastatin Calcium (Lipitor) 40 mg PO DAILY [facility] Last Admin: 02/25/17 10:51 Dose: 40 mg Carvedilol (Coreg) 6.25 mg PO BID [facility] Last Admin: 02/25/17 10:50 Dose: 6.25 mg Ceftriaxone Sodium (Rocephin 1 Gram Ivpb) 1 gm in 100 mls @ 100 mls/hr IVPB DAILY [facility] PRN Reason: Protocol Last Admin: 02/25/17 10:49 Dose: 100 mls/hr Insulin Human Regular (Humulin R Low) 0 units SC ACHS [facility] PRN Reason: Protocol Last Admin: 02/25/17 10:51 Dose: 3 units Ondansetron HCl (Zofran Inj) 4 mg IVP Q6 PRN PRN Reason: Nausea/Vomiting Pantoprazole Sodium (Protonix Inj) 40 mg IVP DAILY [facility] Last Admin: 02/25/17 10:49 Dose: 40 mg - Labs Labs: 02/25/17 05:30 02/25/17 06:00 APTT 55.7 Seconds (25.1-36.5) H 02/22/17 08:30 - Additional Findings Additional findings: Phys Exam: VS as below Const'l: a&o x 4, but exhibits selective mutism; nad Head/Neck: neck supple, no jvd, trachea midline, carotid midline, no cervical /head mass Eyes: bere, nonicteric sclera, eom intact ENT: auditory acuity grossly intact, throat not congested, no nasal deformity Cardio: rrr, no m/r/g, no carotid bruit, nml s1, s2 Pulm: no accessory muscle use, equal nml breath sounds bilaterally, ctab Abd: s/nt/nd, nbs x 4 q, no palpable masses Derm: no rashes, no ulcers, no lesions Extr: no edema, no cyanosis, no calf tenderness, no lesions, no varicosities Neuro: cn II-XII grossly intact, ue and le 5/5 muscle strength bilaterally, no los ue, le bilaterally and core Assessment and Plan - Assessment and Plan (Free Text) Assessment: A/P 66 year old female with unknown past medical history presents to the ED with AMS and lethargy. Multiple AMS, possibly 2/2 hypercalcemia VS infection VS METS VS toxic metabolic encephalopathy - CT Head negative for acute changes - Ammonia level low - Ca: 14.6 on admission, 9.7 now - IV fluids NS stopped - MRI brain: unremarkable, no mass effect NSTEMI - Uncertain - EKG;Sinus Tachycardic at [address] Elevations in ED - Troponin .3 downtrending - most likely 2.2 NOHEMI - A1C: 8.0 - Lipitor - Metoprolol 25 mg BID as per Dr. Love and Dr. 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 Jarvis: CT-Guided bx - GI consulted, Wally: he has signed off for now, no GI intervntion - Dr. Tye Jaimes consulted for biopsy: done today Leukocytosis - WBC went up to 16.5 from 15.2 yesterday - Temp 100.4 overnight - ID consulted, Dr. DE JESUS, will follow up recs: only on Rocephin for now Hyperglycemia - ISS sliding scale medium, with accuchecks - A1C: 8.0 - IVF stopped CKD v NOHEMI - Cr downtrending - Fluids - Nephrology consulted, Elissa, will follow recs ARF likely 2/2 METS cancer. Pt getting hydration and Aredia K-phos for her hypophosphatemia Mild obstruction of left ureter:2/2 to pelvic mass Continue IVF, Kphos; s/p dose of Aredia, patient's calcium improved - In light of the above, patient's AMS could be 2/2 ureteral obstruction Anemia - Hgb dropping - Ferritin wnl, TIBC low, Iron low Trasaminitis -likely secondary to liver mets - liver panel follow up: hep negative - will continue to monitor Depression - Psych consult GI/DVT prophylaxis Protonix/Heparin At this time, HIV, RPR, TSH, and Procal are being ordered to get to the root of her underlying disease process <Emily Kaplan - Last Filed: 02/25/17 15:53> Objective - Vital Signs/Intake and Output Vital Signs (last 24 hours): Temp Pulse Resp BP Pulse Ox 99.8 F H 111 H 22 153/73 H 96 02/25/17 08:35 02/25/17 10:50 02/25/17 08:35 02/25/17 10:50 02/25/17 08:35 Intake and Output: 02/25/17 02/25/17 06:59 18:59 Intake Total 1510 Output Total 525 Balance 985 - Medications Medications: Current Medications Acetaminophen (Tylenol 325mg Tab) 650 mg PO Q6H PRN PRN Reason: fever Last Admin: 02/25/17 06:11 Dose: 650 mg Atorvastatin Calcium (Lipitor) 40 mg PO DAILY [facility] Last Admin: 02/25/17 10:51 Dose: 40 mg Carvedilol (Coreg) 6.25 mg PO BID [facility] Last Admin: 02/25/17 10:50 Dose: 6.25 mg Ceftriaxone Sodium (Rocephin 1 Gram Ivpb) 1 gm in 100 mls @ 100 mls/hr IVPB DAILY [facility] PRN Reason: Protocol Last Admin: 02/25/17 10:49 Dose: 100 mls/hr Insulin Human Regular (Humulin R Low) 0 units SC ACHS [facility] PRN Reason: Protocol Last Admin: 02/25/17 10:51 Dose: 3 units Ondansetron HCl (Zofran Inj) 4 mg IVP Q6 PRN PRN Reason: Nausea/Vomiting Pantoprazole Sodium (Protonix Inj) 40 mg IVP DAILY [facility] Last Admin: 02/25/17 10:49 Dose: 40 mg Potassium Phos/Sodium Phos (Neutra-Phos) 1 pkt PO DAILY [facility] - Labs Labs: 02/25/17 05:30 02/25/17 06:00 APTT 55.7 Seconds (25.1-36.5) H 02/22/17 08:30 Attending/Attestation - Attestation I have personally seen and examined this patient.: Yes I have fully participated in the care of the patient.: Yes I have reviewed all pertinent clinical information, including history, physical exam and plan: Yes Notes (Text): I have seen and examined the patient at bedside. Agree with the above note with the following additions/ exceptions: Briefly this is 66 year old female with history of DM-2 who came for evaluation of AMS and found to have renal insufficiency (cr 1.7), elevated troponin, leukocytosis, elevated LA, anemia ( 7.7), electrolyte abnormalities including hypercalcemia (14.6) and uterine vs GI mass on CT scan. Today patient appears well and is able to answer all questions. She is AAO X3. Patient expressed that she has been very depressed because her son does not want her to stay in his house. She also started crying during interview and is agreeable to see psychiatrist. Patient does not have any focal deficits. CT head negative. MRI brain is negative. Patient was given aredia which is helping to lower calcium. Hypercalcemia is due to malignancy. Her renal insufficiency is probably secondary to obstructive uropathy. Discussed with Dr Tye Jaimes regarding possible biopsy of liver mets which is planned for today. Patient has anemia s/p 1 unit prbc. Will give another unit today. There is no active bleeding. Patient had elevated troponin which is secondary to demand ischemia. Aspirin, plavix and heparin was discontinued. Continue coreg. Echo is normal. Patient had fever overnight and has leukocytosis. Blood and urine cultures are negative. Discussed with Dr De Jesus. He advised not to do LP at this time as patient is very alert,oriented and has been on IV antibiotics. Upon discharge patient will follow up with Dr Linder. Dr Emily Kaplan.
--- NOTE | 2017-02-25 17:22 | PN ---
DATE: SUBJECTIVE: The patient is lethargic, but arousable. She denies any chest pain. PHYSICAL EXAMINATION: VITAL SIGNS: Blood pressure 153/73, heart rate 111, temperature 99.8, earlier temperature was 100.4, and respirations 22. HEENT: Pale conjunctivae. CHEST: Diminished air entry bilaterally. HEART: S1 and S2 regular. EXTREMITIES: No edema. LABORATORY DATA: Hemoglobin and hematocrit 7.6 and 23.7, white count 16.5 and platelet count 350,000. SMA-7: Sodium 141, potassium 4.1, chloride 109, CO2 of 22, glucose 112, BUN 17, and creatinine 1.5. Brain MRI was unremarkable, noncontrast enhance MRI of the brain. ASSESSMENT: 1. Metastatic colon cancer. 2. Anemia. 3. Borderline troponin elevation. 4. Alerted mental status. 5. Improved hypokalemia and hypomagnesemia. RECOMMENDATIONS: Continue current Coreg 6.25 mg twice a day, Protonix 40 mg intravenously once a day, Rocephin 1 g daily, and Lipitor at 40 mg daily. The patient is scheduling for a liver biopsy. Wellington Ponce MD
--- NOTE | 2017-02-25 17:28 | CP.PCM.PN ---
Subjective - Date & Time of Evaluation Date of Evaluation: 02/25/17 Time of Evaluation: 15:00 - Subjective Subjective: Infectious Disease Follow Up: February 25, 2017 66 yo female presenting with AMS and lethargy. Patient lives in a 2 family house with her son and his family. The son went on a vacation 2 weeks ago and found the patient in an altered state of mind with generalized weakness at time but consistent lower body weakness. 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 The patient has not worked in the past month. When the son came back from a vacation in [place], the patient was found on the floor unclothed on the bottom half of her body. The son helped the patient to the toilet and saw blood in the bowl. During the day the patient has had periods of lucency but has remained immobile in bed. The patient has periods of being non verbal and very confused. The patient has been able to follow simple commands more consistently as of late. It appears that the patient is more talkative when spoken to on a one to one basis. Objective - Vital Signs/Intake and Output Vital Signs (last 24 hours): Temp Pulse Resp BP Pulse Ox 98.6 F 101 H 20 155/77 H 96 02/25/17 16:00 02/25/17 16:00 02/25/17 16:00 02/25/17 16:00 02/25/17 16:00 Intake and Output: 02/25/17 02/25/17 06:59 18:59 Intake Total 1510 Output Total 525 Balance 985 - Medications Medications: Current Medications Acetaminophen (Tylenol 325mg Tab) 650 mg PO Q6H PRN PRN Reason: fever Last Admin: 02/25/17 06:11 Dose: 650 mg Atorvastatin Calcium (Lipitor) 40 mg PO DAILY [facility] Last Admin: 02/25/17 10:51 Dose: 40 mg Carvedilol (Coreg) 6.25 mg PO BID [facility] Last Admin: 02/25/17 10:50 Dose: 6.25 mg Ceftriaxone Sodium (Rocephin 1 Gram Ivpb) 1 gm in 100 mls @ 100 mls/hr IVPB DAILY [facility] PRN Reason: Protocol Last Admin: 02/25/17 10:49 Dose: 100 mls/hr Insulin Human Regular (Humulin R Low) 0 units SC ACHS [facility] PRN Reason: Protocol Last Admin: 02/25/17 10:51 Dose: 3 units Ondansetron HCl (Zofran Inj) 4 mg IVP Q6 PRN PRN Reason: Nausea/Vomiting Pantoprazole Sodium (Protonix Inj) 40 mg IVP DAILY [facility] Last Admin: 02/25/17 10:49 Dose: 40 mg Potassium Phos/Sodium Phos (Neutra-Phos) 1 pkt PO DAILY [facility] - Labs Labs: 02/25/17 05:30 02/25/17 06:00 APTT 55.7 Seconds (25.1-36.5) H 02/22/17 08:30 - Constitutional Appears: Non-toxic, No Acute Distress, Chronically Ill - Head Exam Head Exam: ATRAUMATIC, NORMOCEPHALIC - Eye Exam Eye Exam: EOMI, PERRL Pupil Exam: NORMAL ACCOMODATION, PERRL - ENT Exam ENT Exam: Mucous Membranes Moist, Normal External Ear Exam, TM's Normal Bilaterally - Respiratory Exam Respiratory Exam: Clear to Ausculation Bilateral, Wheezes, NORMAL BREATHING PATTERN. absent: Rales, Rhonchi - Cardiovascular Exam Cardiovascular Exam: Tachycardia, +S1, +S2 - GI/Abdominal Exam GI & Abdominal Exam: Soft, Normal Bowel Sounds. absent: Distended, Tenderness - Extremities Exam Extremities Exam: Full ROM, Normal Inspection - Neurological Exam Neurological Exam: Alert, Awake, CN II-XII Intact, Oriented x3 - Psychiatric Exam Psychiatric exam: Normal Affect, Normal Mood Assessment and Plan - Assessment and Plan (Free Text) Assessment: 66 yo female with leukocytosis, AMS, periods of confusion and even being nonverbal, immobility. Difficult to obtain history as the patient is currently a poor and unreliable historian. The son states that the patient (mother) was very private and didn't tell him of any medical history. At this point the patient has tachycardia, elevated troponin (NSTEMI?), AMS, question of Rectal Cancer, Leukocytosis, and elevated creatinine as well as transaminitis. Would also consider lumbar puncture on the patient and obtaining cancer markers. CT Abdomen and pelvis shows a perirectal/pelvic mass of unknown origin. There are also multiple liver and lung lesions highly suspicious of metastatic disease. Possible biopsy by Dr. Tye Jaimes. Leukocytosis has slight left shift. Continue Ceftriaxone IV for now. Patient appears more talkative when spoken to one on one. Thank you for allowing me to participate in the care of this patient, we will follow with you.
[2017-02-25] MEDS ORDERED: Sodium Chloride 0.45% 1,000 ML IV SCH (18:30)
--- NOTE | 2017-02-25 19:16 | PN ---
DATE: SUBJECTIVE: The patient is currently seen and receiving FFP. She is going down for a liver biopsy according to the nursing staff. Her calcium level has returned to normal. Her BUN and creatinine have normalized. MEDICATIONS: Medication list reviewed. The patient is currently on Coreg, insulin, Lipitor, Protonix, Rocephin, Tylenol, and Zofran p.r.n. OBJECTIVE: INTAKE/OUTPUT: Intake 1510 and output 525. VITAL SIGNS: Blood pressure 153/73 to 130/80. Heart rate is ranging from 84 to 111. Temperature is 99.8. Respiratory rate is 22 with a pulse ox of 96%. HEENT: Shows her to be normocephalic and atraumatic. Conjunctivae are pale. Sclerae nonicteric. NECK: Supple. No neck vein distention. CHEST: Clear to auscultation and percussion. No rales, rhonchi, or wheezing. CARDIOVASCULAR: Shows a regular rate and rhythm with a soft systolic murmur left lower sternal border. ABDOMEN: Soft. Bowel sounds normal. No rebound or guarding. No masses. EXTREMITIES: Show no lower extremity edema. No cyanosis or clubbing. LABORATORY DATA AND IMAGING STUDIES: CBC; white blood cell count today elevated 16.5, hemoglobin stable, but low at 7.6, and platelet count is 350,000. Chemistries; sodium 141, potassium 4.4, chloride 109 with a CO2 of 22, BUN is down to 17 from a high of 46, and creatinine is 1.5 within her baseline range. She is down from 1.7. Glucose is 212. Calcium is 9.7. Last phosphorus 2.4 with a magnesium of 1.9. Mild elevation of her liver enzymes. AST 91 and ALT 81 with a alkaline phosphatase of 417. Albumin level was 3.0. Microbiology, all cultures are negative to date. ASSESSMENT: 1. Acute renal failure. The patient's baseline creatinine appears to be 1.5 consistent with chronic kidney disease stage II/III. The patient, of note does have mild obstruction of her left ureter. Perhaps evaluation for further followup as indicated. 2. Likely metastatic cancer. The patient has a pelvic mass. She has an elevated CA125 level. She has pelvic adenopathy, hepatic masses and pulmonary masses all likely felt to be secondary to metastatic disease. 3. Hypercalcemia with mild hypophosphatemia. With IV fluid hydration and Aredia, her calcium level had fallen from 14.6 down to 9.7 with clearing of her mental status. Phosphorus level was low at 2.4. The patient may be started on Neutra-Phos 1 packet a day. 4. History of anemia likely secondary to underlying malignancy. The patient has received 1 unit of packed red blood cells to date. 5. History of insulin-dependent diabetes mellitus. The patient will continue on sliding scale insulin. 6. Mild obstruction of her left distal ureter, perhaps secondary to her pelvic mass. Again, genitourinary evaluation if this progresses and worsens. 7. Status post altered mental status, this has improved with clearing of the metabolic encephalopathy with treatment of her hypercalcemia. PLAN: 1.. Encourage oral fluid intake. The patient is off IV fluids. 2. We will start the patient on Neutra-Phos. 3. P.r.n. evaluation for obstructive left ureter. 4. Oncology followup post obtaining a tissue diagnosis. 5. The patient is biochemically stable and stable from a renal standpoint. We will follow up on a p.r.n. basis. Irving Bowers MD
--- NOTE | 2017-02-25 19:46 | CT ---
PROCEDURE: CT guided liver biopsy. HISTORY: Pelvic mass. Liver and pulmonary metastasis. Needs CT liver biopsy for diagnosis PHYSICIAN(S): Tye Jaimes MD. TECHNIQUE: The relative risks and indications of the procedure were explained to the patient's son and consent obtained. The patient was placed supine on the CT scanner and preliminary images through the liver obtained. Conscious sedation and monitoring were provided throughout the procedure by a nurse. There are numerous low-attenuation lesions in both lobes of the liver.. A right lateral approach was selected and the area prepped and draped in the usual sterile fashion. 1% Xylocaine was used to anesthetize the skin and soft tissues. A 17-gauge guiding needle was advanced into the anterior segment of the right lobe of the liver. Its position was confirmed with CT. Using coaxial technique, multiple core biopsies were obtained. The postprocedure images show no evidence of significant hemorrhage. IMPRESSION: 1. CT-guided liver biopsy as described above.
--- NOTE | 2017-02-26 06:30 | CP.PCM.PN ---
Subjective - Date & Time of Evaluation Date of Evaluation: 02/26/17 Time of Evaluation: 06:27 - Subjective Subjective: was seen and examined at the bedside. She is alert, but confused with time (1967), person ([employer]), and place ([facility]).She states of feeling cold and able to verbalize the reason for her arm immobilizer. She denies any headache, dizziness, numbness,nausea, or vomiting. There was no untoward events overnight. Objective - Vital Signs/Intake and Output Vital Signs (last 24 hours): Temp Pulse Resp BP Pulse Ox 97.5 F L 78 25 H 140/90 98 02/25/17 19:15 02/25/17 21:08 02/25/17 19:15 02/25/17 21:08 02/25/17 19:15 Intake and Output: 02/25/17 02/26/17 18:59 06:59 Intake Total 75 540 Output Total 1650 Balance 75 -1110 - Medications Medications: Current Medications Acetaminophen (Tylenol 325mg Tab) 650 mg PO Q6H PRN PRN Reason: fever Last Admin: 02/25/17 06:11 Dose: 650 mg Atorvastatin Calcium (Lipitor) 40 mg PO DAILY [facility] Last Admin: 02/25/17 10:51 Dose: 40 mg Carvedilol (Coreg) 6.25 mg PO BID [facility] Last Admin: 02/25/17 21:08 Dose: 6.25 mg Ceftriaxone Sodium (Rocephin 1 Gram Ivpb) 1 gm in 100 mls @ 100 mls/hr IVPB DAILY [facility] PRN Reason: Protocol Last Admin: 02/25/17 10:49 Dose: 100 mls/hr Insulin Human Regular (Humulin R Low) 0 units SC ACHS [facility] PRN Reason: Protocol Last Admin: 02/25/17 22:39 Dose: Not Given Ondansetron HCl (Zofran Inj) 4 mg IVP Q6 PRN PRN Reason: Nausea/Vomiting Pantoprazole Sodium (Protonix Inj) 40 mg IVP DAILY [facility] Last Admin: 02/25/17 10:49 Dose: 40 mg Potassium Phos/Sodium Phos (Neutra-Phos) 1 pkt PO DAILY [facility] - Labs Labs: 02/25/17 05:30 02/25/17 06:00 APTT 55.7 Seconds (25.1-36.5) H 02/22/17 08:30 - Constitutional Appears: No Acute Distress - Head Exam Head Exam: ATRAUMATIC - Neurological Exam Neurological Exam: Awake Neuro motor strength exam: Left Upper Extremity: 5, Right Upper Extremity: 5, Left Lower Extremity: 5, Right Lower Extremity: 5 Additional comments: She has episode of confusion,but able to follow commands such as opening her mouth, field accommodation, finger to nose test, and strength test.Sensation is intact. Assessment and Plan (1) Toxic metabolic encephalopathy Assessment & Plan: Case discussed with , continue all current medical regimen and treat leukocytosis and multiple metabolic derangements, her mental status may improve. Status: Acute
[2017-02-26 06:43] LABS: MEAN CELL VOLUME 73.1 fl (80.0-105.0); MEAN CORPUSCULAR HEMOGLOBIN 23.2 pg (25.0-35.0); MEAN CORPUSCULAR HGB CONC 31.8 g/dl (31.0-37.0); MEAN PLATELET VOLUME 9.6 fl (7.0-11.0); RED CELL DISTRIBUTION WIDTH 17.2 % (11.5-14.5); WHITE BLOOD COUNT 15.6 10^3/ul (4.5-11.0)
[2017-02-26 07:10] LABS: HEMATOCRIT 21.7 % (36.0-48.0)
[2017-02-26] MEDS: Insulin Reg-LOW-Coverage SC SCH ×4 (08:05→21:49)
[2017-02-26] MEDS ORDERED: Albuterol-Ipratrop 3 mg / 0.5 (3 ml) UD IH ONE (09:40)
[2017-02-26 09:50] LABS: BILIRUBIN,TOTAL 0.6 mg/dL (0.2-1.3); CALCIUM 8.8 mg/dL (8.4-10.5); POTASSIUM 4.6 mmol/L (3.6-5.0); TOTAL PROTEIN 6.1 g/dL (5.8-8.3)
[2017-02-26 09:53] LABS: ALB/GLOB RATIO 0.9 (1.1-1.8)
--- NOTE | 2017-02-26 10:08 | RAD ---
HISTORY: SOB COMPARISON: 02/21/2017 FINDINGS: LUNGS: No active pulmonary disease. PLEURA: No significant pleural effusion identified, no pneumothorax apparent. CARDIOVASCULAR: The heart is normal in size. There is mild vascular congestion OSSEOUS STRUCTURES: No significant abnormalities. VISUALIZED UPPER ABDOMEN: Normal. OTHER FINDINGS: None. IMPRESSION: Mild vascular congestion
[2017-02-26] MEDS: cefTRIAXone 1 gm 1 GM/100 ML BAG IVPB SCH (11:11)
[2017-02-26] MEDS: Potassium & Sodium Phosphate PO SCH (11:13)
--- NOTE | 2017-02-26 12:56 | PN ---
DATE: SUBJECTIVE: The patient is dysarthric. She is oriented to place. She underwent liver biopsy today and currently receiving packed RBC transfusion and plan is to transfuse 2 units. The patient denies any chest pain. PHYSICAL EXAMINATION: VITAL SIGNS: Blood pressure 137/93, heart rate 107, temperature 99 and respirations 18. HEENT: Pale conjunctivae. CHEST: Clear. HEART: S1 and S2 regular. EXTREMITIES: No edema. LABORATORY DATA: Today, SMA-7 is within normal limit except for glucose of 103 and creatinine of 1.4. The recent hemoglobin and hematocrit is 6.9 and 21.7, white count 15.6, and platelet count 300,000. DIAGNOSTIC DATA: Liver biopsy CT report; reported CT-guided liver biopsy via right lateral approach. The post-procedure images showed no evidence of significant hemorrhage. Today's chest x-ray report revealed a mild vascular congestion. ASSESSMENT: 1. Metastatic colon cancer. 2. Severe anemia. 3. Mild vascular congestion by chest x-ray. RECOMMENDATIONS: Continue Coreg 6.25 mg twice a day, Lipitor 40 mg once a day, Rocephin 1 g intravenously daily, administer Lasix at 40 mg intravenously after 8 units of packed RBC transfusion. Wellington Ponce MD
--- NOTE | 2017-02-26 13:40 | CP.PCM.PN ---
<Jake Apodaca - Last Filed: 02/26/17 14:12> Subjective - Date & Time of Evaluation Date of Evaluation: 02/26/17 Time of Evaluation: 13:03 - Subjective Subjective: Medicine progress note for Dr. Kaplan - TKS, DO PGY - 1, Pt s/e bedside. History was obtained by Dr. Kaplan and Dr. Wilson. Pt states she does not want to go home with her son and that she is going to stay with her other family members. She states that her depression stems both from her medical conditions (which she was aware of), and the way her son treats her. In terms of her medical problems, she has no complaints at this time. She underwent her CT guided bx yesterday, and tolerated the procedure well. No further complaints Objective - Vital Signs/Intake and Output Vital Signs (last 24 hours): Temp Pulse Resp BP Pulse Ox 98.5 F 94 H 18 134/65 99 02/26/17 12:26 02/26/17 12:26 02/26/17 12:26 02/26/17 12:26 02/26/17 06:00 Intake and Output: 02/26/17 02/26/17 06:59 18:59 Intake Total 540 325 Output Total 1650 Balance -1110 325 - Medications Medications: Current Medications Acetaminophen (Tylenol 325mg Tab) 650 mg PO Q6H PRN PRN Reason: fever Last Admin: 02/25/17 06:11 Dose: 650 mg Atorvastatin Calcium (Lipitor) 40 mg PO DAILY [facility] Last Admin: 02/26/17 11:14 Dose: 40 mg Carvedilol (Coreg) 6.25 mg PO BID [facility] Last Admin: 02/26/17 11:13 Dose: 6.25 mg Ceftriaxone Sodium (Rocephin 1 Gram Ivpb) 1 gm in 100 mls @ 100 mls/hr IVPB DAILY [facility] PRN Reason: Protocol Last Admin: 02/26/17 11:11 Dose: 100 mls/hr Insulin Human Regular (Humulin R Low) 0 units SC ACHS [facility] PRN Reason: Protocol Last Admin: 02/26/17 12:40 Dose: 1 units Ondansetron HCl (Zofran Inj) 4 mg IVP Q6 PRN PRN Reason: Nausea/Vomiting Pantoprazole Sodium (Protonix Inj) 40 mg IVP DAILY [facility] Last Admin: 02/26/17 11:11 Dose: 40 mg Potassium Phos/Sodium Phos (Neutra-Phos) 1 pkt PO DAILY [facility] Last Admin: 02/26/17 11:13 Dose: 1 pkt - Labs Labs: 02/26/17 06:15 02/26/17 09:10 APTT 55.7 Seconds (25.1-36.5) H 02/22/17 08:30 - Additional Findings Additional findings: Phys Exam: VS as below Const'l: a&o x 4, but exhibits selective mutism; nad Head/Neck: neck supple, no jvd, trachea midline, carotid midline, no cervical /head mass Eyes: bere, nonicteric sclera, eom intact ENT: auditory acuity grossly intact, throat not congested, no nasal deformity Cardio: rrr, no m/r/g, no carotid bruit, nml s1, s2 Pulm: no accessory muscle use, equal nml breath sounds bilaterally, ctab Abd: + R sided access point is c/d/i. No TTP; s/nt/nd, nbs x 4 q, no palpable masses Derm: no rashes, no ulcers, no lesions Extr: no edema, no cyanosis, no calf tenderness, no lesions, no varicosities Neuro: cn II-XII grossly intact, ue and le 5/5 muscle strength bilaterally, no los ue, le bilaterally and core Assessment and Plan - Assessment and Plan (Free Text) Plan: A/P 66 year old female with unknown past medical history presents to the ED with AMS and lethargy. CT Head and MRI Brain negative. Multiple METS, Hypercalcemia. AMS, possibly 2/2 hypercalcemia VS infection VS METS VS toxic metabolic encephalopathy - CT Head negative for acute changes - Ammonia level low - Ca: 14.6 on admission, 8.8 now - IV fluids NS stopped - MRI brain: unremarkable, no mass effect - RPR negative, TSH wnl Hypercalcemia - Resolved - Aredia one dose NSTEMI - Uncertain - EKG;Sinus Tachycardic at [address] Elevations in ED - Troponin .3 downtrending - most likely 2.2 NOHEMI - A1C: 8.0 - Lipitor - Metoprolol 25 mg BID as per Dr. Love and Dr. 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 Jarvis: CT-Guided bx - GI consulted, Wally: he has signed off for now, no GI intervntion - Dr. Tye Jaimes consulted for biopsy: done yesterday, results pending. Leukocytosis - WBC went up to 16.5 from 15.2 yesterday - Temp 100.4 overnight - Procal elevated, trending up - ID consulted, Dr. DE JESUS, will follow up recs: only on Rocephin for now Discussed taking patient off of Rocephin for now. Leukocytosis and waxing/ waning temperature seem to be 2/2 malignant process. Hyperglycemia - ISS sliding scale medium, with accuchecks - A1C: 8.0 - IVF stopped CKD v NOHEMI - Cr downtrending - Fluids - Nephrology consulted, Elissa, will follow recs ARF likely 2/2 METS cancer. Pt getting hydration and Aredia K-phos for her hypophosphatemia Mild obstruction of left ureter:2/2 to pelvic mass Continue IVF, Kphos; s/p dose of Aredia, patient's calcium improved - In light of the above, patient's AMS could be 2/2 ureteral obstruction Anemia - Hgb dropping - Ferritin wnl, TIBC low, Iron low Trasaminitis -likely secondary to liver mets - liver panel follow up: hep negative - will continue to monitor Depression - Psych consult: Dr. Wilson Pt does not have SI or HI. Dr. Wilson will sign off for now. GI/DVT prophylaxis Protonix/Heparin <Emily Kaplan - Last Filed: 02/27/17 18:11> Objective - Vital Signs/Intake and Output Vital Signs (last 24 hours): Temp Pulse Resp BP Pulse Ox 99.9 F H 90 20 123/101 H 100 02/27/17 16:00 02/27/17 16:00 02/27/17 16:00 02/27/17 17:34 02/27/17 16:00 Intake and Output: 02/27/17 02/27/17 06:59 18:59 Intake Total 180 Output Total 2700 Balance -2520 - Medications Medications: Current Medications Acetaminophen (Tylenol 325mg Tab) 650 mg PO Q6H PRN PRN Reason: fever Last Admin: 02/25/17 06:11 Dose: 650 mg Atorvastatin Calcium (Lipitor) 40 mg PO DAILY [facility] Last Admin: 02/27/17 10:37 Dose: 40 mg Carvedilol (Coreg) 6.25 mg PO BID [facility] Last Admin: 02/27/17 17:24 Dose: 6.25 mg Insulin Human Regular (Humulin R Low) 0 units SC ACHS [facility] PRN Reason: Protocol Last Admin: 02/27/17 17:24 Dose: 2 units Lisinopril (Zestril) 5 mg PO DAILY [facility] Last Admin: 02/27/17 10:44 Dose: 5 mg Ondansetron HCl (Zofran Inj) 4 mg IVP Q6 PRN PRN Reason: Nausea/Vomiting Pantoprazole Sodium (Protonix Inj) 40 mg IVP DAILY [facility] Last Admin: 02/27/17 10:38 Dose: 40 mg Potassium Phos/Sodium Phos (Neutra-Phos) 1 pkt PO DAILY [facility] Last Admin: 02/27/17 10:38 Dose: 1 pkt - Labs Labs: 02/27/17 08:30 02/27/17 08:30 APTT 55.7 Seconds (25.1-36.5) H 02/22/17 08:30 Attending/Attestation - Attestation I have personally seen and examined this patient.: Yes I have fully participated in the care of the patient.: Yes I have reviewed all pertinent clinical information, including history, physical exam and plan: Yes Notes (Text): I have seen and examined the patient at bedside. Agree with the above note with the following additions/ exceptions: Briefly this is 66 year old female with history of DM-2 who came for evaluation of AMS and found to have renal insufficiency (cr 1.7), elevated troponin, leukocytosis, elevated LA, anemia ( 7.7), electrolyte abnormalities including hypercalcemia (14.6) and uterine vs GI mass on CT scan. Today patient appears well and is able to answer all questions. She is AAO X3. Patient expressed that she has been very depressed because her son does not want her to stay in his house. She was seen by psychiatrist. Patient does not have any focal deficits. CT head negative. MRI brain is negative. Patient was given aredia which is helping to lower calcium. Hypercalcemia is due to malignancy. Her renal insufficiency is probably secondary to obstructive uropathy. Patient underwent CT guided biopsy of liver mets which she tolerated well. Patient has anemia s/p 3 units prbc. There is no active bleeding. Patient had elevated troponin which is secondary to demand ischemia. Aspirin, plavix and heparin was discontinued. Continue coreg. Echo is normal. Patient has been afebrile and has leukocytosis. Blood and urine cultures are negative. Discussed with Dr De Jesus. He advised not to do LP at this time as patient is very alert, oriented and has been on IV antibiotics. Upon discharge patient will follow up with Dr Linder. Dr Emily Kaplan.
--- NOTE | 2017-02-26 19:15 | CP.PCM.PN ---
Subjective - Date & Time of Evaluation Date of Evaluation: 02/26/17 Time of Evaluation: 17:15 - Subjective Subjective: Infectious Disease Follow Up: February 26, 2017 66 yo female presenting with AMS and lethargy. Patient lives in a 2 family house with her son and his family. The son went on a vacation 2 weeks ago and found the patient in an altered state of mind with generalized weakness at time but consistent lower body weakness. 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 The patient has not worked in the past month. When the son came back from a vacation in [place], the patient was found on the floor unclothed on the bottom half of her body. The son helped the patient to the toilet and saw blood in the bowl. During the day the patient has had periods of lucency but has remained immobile in bed. The patient has periods of being non verbal and very confused. The patient is awake and alert. It appears that the patient is more talkative when spoken to on a one to one basis. Objective - Vital Signs/Intake and Output Vital Signs (last 24 hours): Temp Pulse Resp BP Pulse Ox 99.7 F H 98 H 19 138/67 100 02/26/17 16:00 02/26/17 17:40 02/26/17 16:00 02/26/17 17:40 02/26/17 16:00 Intake and Output: 02/26/17 02/27/17 18:59 06:59 Intake Total 830 Output Total 550 Balance 280 - Medications Medications: Current Medications Acetaminophen (Tylenol 325mg Tab) 650 mg PO Q6H PRN PRN Reason: fever Last Admin: 02/25/17 06:11 Dose: 650 mg Atorvastatin Calcium (Lipitor) 40 mg PO DAILY [facility] Last Admin: 02/26/17 11:14 Dose: 40 mg Carvedilol (Coreg) 6.25 mg PO BID [facility] Last Admin: 02/26/17 17:40 Dose: 6.25 mg Insulin Human Regular (Humulin R Low) 0 units SC ACHS [facility] PRN Reason: Protocol Last Admin: 02/26/17 16:38 Dose: 2 units Ondansetron HCl (Zofran Inj) 4 mg IVP Q6 PRN PRN Reason: Nausea/Vomiting Pantoprazole Sodium (Protonix Inj) 40 mg IVP DAILY [facility] Last Admin: 02/26/17 11:11 Dose: 40 mg Potassium Phos/Sodium Phos (Neutra-Phos) 1 pkt PO DAILY [facility] Last Admin: 02/26/17 11:13 Dose: 1 pkt - Labs Labs: 02/26/17 06:15 02/26/17 09:10 APTT 55.7 Seconds (25.1-36.5) H 02/22/17 08:30 - Constitutional Appears: Non-toxic, No Acute Distress, Chronically Ill - Head Exam Head Exam: ATRAUMATIC, NORMOCEPHALIC - Eye Exam Eye Exam: EOMI, PERRL Pupil Exam: NORMAL ACCOMODATION, PERRL - ENT Exam ENT Exam: Mucous Membranes Moist, Normal External Ear Exam, TM's Normal Bilaterally - Neck Exam Neck Exam: Full ROM, Normal Inspection - Respiratory Exam Respiratory Exam: Clear to Ausculation Bilateral, NORMAL BREATHING PATTERN. absent: Rales, Rhonchi, Wheezes - Cardiovascular Exam Cardiovascular Exam: REGULAR RHYTHM, RRR, +S1, +S2 - GI/Abdominal Exam GI & Abdominal Exam: Soft, Normal Bowel Sounds. absent: Distended, Tenderness - Extremities Exam Extremities Exam: Full ROM, Normal Inspection - Neurological Exam Neurological Exam: Alert, Awake, CN II-XII Intact, Oriented x3 - Psychiatric Exam Psychiatric exam: Normal Affect, Normal Mood - Skin Skin Exam: Intact, Normal Color Assessment and Plan - Assessment and Plan (Free Text) Assessment: 66 yo female with leukocytosis, AMS, periods of confusion and even being nonverbal, immobility. Difficult to obtain history as the patient is currently a poor and unreliable historian. The son states that the patient (mother) was very private and didn't tell him of any medical history. At this point the patient has tachycardia, elevated troponin (NSTEMI?), AMS, question of Rectal Cancer, Leukocytosis, and elevated creatinine as well as transaminitis. Would also consider lumbar puncture on the patient and obtaining cancer markers. CT Abdomen and pelvis shows a perirectal/pelvic mass of unknown origin. There are also multiple liver and lung lesions highly suspicious of metastatic disease. Possible biopsy by Dr. Tye Jaimes. Leukocytosis has slight left shift. Patient appears more talkative when spoken to one on one. Cultures negative. Will stop antibiotics and monitor at this time. Thank you for allowing me to participate in the care of this patient, we will follow with you.
[2017-02-27 08:43] LABS: BASO # 0.02 K/mm3 (0.0-2.0); BASO % 0.1 % (0.0-3.0); EOS # 0.2 (0.0-0.7); EOS % 1.3 % (1.5-5.0); GRAN # 12.69 (1.4-6.5); GRAN % 82.6 % (50.0-68.0); HEMATOCRIT 32.4 % (36.0-48.0); LYMPH # 0.8 (1.2-3.4); LYMPH % 5.4 % (22.0-35.0); MEAN CELL VOLUME 74.8 fl (80.0-105.0); MEAN CORPUSCULAR HEMOGLOBIN 24.9 pg (25.0-35.0); MEAN CORPUSCULAR HGB CONC 33.3 g/dl (31.0-37.0); MEAN PLATELET VOLUME 9.6 fl (7.0-11.0); MONO # 1.6 (0.1-0.6); MONO % 10.6 % (1.0-6.0); RED CELL DISTRIBUTION WIDTH 17.6 % (11.5-14.5); WHITE BLOOD COUNT 15.4 10^3/ul (4.5-11.0)
[2017-02-27 09:00] LABS: ALB/GLOB RATIO 0.9 (1.1-1.8); CALCIUM 8.8 mg/dL (8.4-10.5); POTASSIUM 3.9 mmol/L (3.6-5.0); TOTAL PROTEIN 6.8 g/dL (5.8-8.3)
[2017-02-27] MEDS: Insulin Reg-LOW-Coverage SC SCH ×5 (10:37→22:41)
[2017-02-27] MEDS: Potassium & Sodium Phosphate PO SCH (10:38)
--- NOTE | 2017-02-27 14:16 | CP.PCM.PN ---
<PaulieJake - Last Filed: 02/27/17 14:11> Subjective - Date & Time of Evaluation Date of Evaluation: 02/27/17 Time of Evaluation: 14:11 - Subjective Subjective: Medicine progress note for Dr. Kaplan - SANDRA, DO PGY - 1, Pt s/e bedside with son and daughter - in - law. Pt was more forthcoming about her medical history with DIL, and consented for us to share her medical history with the DIL as well. Per DIL, pt has known about her CA for about a week now, and she is worried about how she is going to pay her bills. She also has a PMHx of IDDM and HLD. Pt sees a Dr. Pruett in [place] as her PMD. Pt is apprehensive about going home to her other son's house, but will feel more comfortable when her daughter arrives today. The plan is that she will go back and live in her other son's house, but her daughter will stay with her. At this time, pt states she is doing very well and is happy that her family has come to see her. No complaints at this time. Objective - Vital Signs/Intake and Output Vital Signs (last 24 hours): Temp Pulse Resp BP Pulse Ox 100.0 F H 95 H 20 133/58 L 96 02/27/17 06:00 02/27/17 06:00 02/27/17 06:00 02/27/17 10:44 02/27/17 06:00 Intake and Output: 02/27/17 02/27/17 06:59 18:59 Intake Total 180 Output Total 2700 Balance -2520 - Medications Medications: Current Medications Acetaminophen (Tylenol 325mg Tab) 650 mg PO Q6H PRN PRN Reason: fever Last Admin: 02/25/17 06:11 Dose: 650 mg Atorvastatin Calcium (Lipitor) 40 mg PO DAILY [facility] Last Admin: 02/27/17 10:37 Dose: 40 mg Carvedilol (Coreg) 6.25 mg PO BID [facility] Last Admin: 02/27/17 10:36 Dose: 6.25 mg Insulin Human Regular (Humulin R Low) 0 units SC ACHS [facility] PRN Reason: Protocol Last Admin: 02/27/17 12:33 Dose: 4 units Lisinopril (Zestril) 5 mg PO DAILY [facility] Last Admin: 02/27/17 10:44 Dose: 5 mg Ondansetron HCl (Zofran Inj) 4 mg IVP Q6 PRN PRN Reason: Nausea/Vomiting Pantoprazole Sodium (Protonix Inj) 40 mg IVP DAILY [facility] Last Admin: 02/27/17 10:38 Dose: 40 mg Potassium Phos/Sodium Phos (Neutra-Phos) 1 pkt PO DAILY [facility] Last Admin: 02/27/17 10:38 Dose: 1 pkt - Labs Labs: 02/27/17 08:30 02/27/17 08:30 APTT 55.7 Seconds (25.1-36.5) H 02/22/17 08:30 - Additional Findings Additional findings: Phys Exam: VS as below Const'l: a&o x 4, but exhibits selective mutism; nad Head/Neck: neck supple, no jvd, trachea midline, carotid midline, no cervical /head mass Eyes: bere, nonicteric sclera, eom intact ENT: auditory acuity grossly intact, throat not congested, no nasal deformity Cardio: rrr, no m/r/g, no carotid bruit, nml s1, s2 Pulm: no accessory muscle use, equal nml breath sounds bilaterally, ctab Abd: + R sided access point is c/d/i. No TTP; s/nt/nd, nbs x 4 q, no palpable masses Derm: no rashes, no ulcers, no lesions Extr: no edema, no cyanosis, no calf tenderness, no lesions, no varicosities Neuro: cn II-XII grossly intact, ue and le 5/5 muscle strength bilaterally, no los ue, le bilaterally and core Assessment and Plan - Assessment and Plan (Free Text) Assessment: A/P 66 year old female with PMHx of HLD and IDDM presented to the ED with AMS and lethargy. CT Head and MRI Brain negative. Multiple METS, Hypercalcemia. Pt fully AAOX4 now. AMS, possibly 2/2 hypercalcemia VS infection VS METS VS toxic metabolic encephalopathy - Resolved - Ca: 14.6 on admission, 7.6 now - IV fluids NS stopped - MRI brain: unremarkable, no mass effect - RPR negative, TSH wnl, HIV negative NSTEMI - Uncertain - Continue Lipitor - Metoprolol 25 mg BID as per Dr. Love and Dr. 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 Jarvis: CT-Guided bx. Performed by Dr. Jaimes - results pending - GI consulted, Wally: he has signed off for now, no GI intervntion Leukocytosis - ID consulted, Dr. DE JESUS, will follow up recs: only on Rocephin for now Discussed taking patient off of Rocephin for now. Leukocytosis and waxing/ waning temperature seem to be 2/2 malignant process. Hyperglycemia - ISS sliding scale medium, with accuchecks - A1C: 8.0 CKD v NOHEMI - Cr downtrending - Nephrology consulted, Elissa, will follow recs ARF likely 2/2 METS cancer. Pt getting hydration and Aredia K-phos for her hypophosphatemia Mild obstruction of left ureter:2/2 to pelvic mass - Pt underwent voiding study, she is able to void, thus ureteral obstruction is r/o. However, pt is experiencing some incontinence Anemia - Hgb stabilizing - Ferritin wnl, TIBC low, Iron low Trasaminitis -likely secondary to liver mets - No acute intervention Depression - Psych consult: Dr. Wilson Pt does not have SI or HI. Dr. Wilson will sign off for now. Hypercalcemia - Resolved - Aredia one dose GI/DVT prophylaxis Protonix/Heparin Dispo: - At this time, patient no longer needs any acute intervention - Will observe patient for one more day off of her ABx and without Jha - Getting patient ready for d/c tomorrow - Pt should follow up with Dr. Linder for her primary care and Dr. Jarvis for her malignancies outpatient <Emily Kaplan - Last Filed: 02/27/17 18:17> Objective - Vital Signs/Intake and Output Vital Signs (last 24 hours): Temp Pulse Resp BP Pulse Ox 99.9 F H 90 20 123/101 H 100 02/27/17 16:00 02/27/17 16:00 02/27/17 16:00 02/27/17 17:34 02/27/17 16:00 Intake and Output: 02/27/17 02/27/17 06:59 18:59 Intake Total 180 Output Total 2700 Balance -2520 - Medications Medications: Current Medications Acetaminophen (Tylenol 325mg Tab) 650 mg PO Q6H PRN PRN Reason: fever Last Admin: 02/25/17 06:11 Dose: 650 mg Atorvastatin Calcium (Lipitor) 40 mg PO DAILY [facility] Last Admin: 02/27/17 10:37 Dose: 40 mg Carvedilol (Coreg) 6.25 mg PO BID [facility] Last Admin: 02/27/17 17:24 Dose: 6.25 mg Insulin Human Regular (Humulin R Low) 0 units SC ACHS [facility] PRN Reason: Protocol Last Admin: 02/27/17 17:24 Dose: 2 units Lisinopril (Zestril) 5 mg PO DAILY [facility] Last Admin: 02/27/17 10:44 Dose: 5 mg Ondansetron HCl (Zofran Inj) 4 mg IVP Q6 PRN PRN Reason: Nausea/Vomiting Pantoprazole Sodium (Protonix Inj) 40 mg IVP DAILY [facility] Last Admin: 02/27/17 10:38 Dose: 40 mg Potassium Phos/Sodium Phos (Neutra-Phos) 1 pkt PO DAILY [facility] Last Admin: 02/27/17 10:38 Dose: 1 pkt - Labs Labs: 02/27/17 08:30 02/27/17 08:30 APTT 55.7 Seconds (25.1-36.5) H 02/22/17 08:30 Attending/Attestation - Attestation I have personally seen and examined this patient.: Yes I have fully participated in the care of the patient.: Yes I have reviewed all pertinent clinical information, including history, physical exam and plan: Yes Notes (Text): I have seen and examined the patient at bedside. Agree with the above note with the following additions/ exceptions: Briefly this is 66 year old female with history of DM-2 who came for evaluation of AMS and found to have renal insufficiency (cr 1.7), elevated troponin, leukocytosis, elevated LA, anemia ( 7.7), electrolyte abnormalities including hypercalcemia (14.6) and uterine vs GI mass on CT scan. Today patient appears well and is able to answer all questions. She is AAO X3. Patient expressed that she has been very depressed because her son does not want her to stay in his house. She was seen by psychiatrist. She does not have any suicidal or homicidal ideation. Patient does not have any focal deficits. CT head negative. MRI brain is negative. Patient was given aredia which is helping to lower calcium. Hypercalcemia is due to malignancy. Her renal insufficiency is probably secondary to obstructive uropathy. Patient underwent CT guided biopsy of liver mets which she tolerated well. Prelim results will be back tomorrow. Patient has anemia s/p 3 units prbc. There is no active bleeding. Patient had elevated troponin which is secondary to demand ischemia. Aspirin, plavix and heparin was discontinued. Continue coreg. Echo is normal. Patient has been afebrile and has leukocytosis. Blood and urine cultures are negative. Discussed with Dr De Jesus. He advised not to do LP at this time as patient is very alert,oriented and has been on IV antibiotics. Will stop antibiotics. Jha was discontinued today. Patient was able to void. PT eval pending. I had a detailed discussion with patient's son and daughter in law who came for [place]. Advised the family that patient will be discharged tomorrow. Family agrees with the plan. Upon discharge patient will follow up with Dr Linder. Dr Emily Kaplan.
--- NOTE | 2017-02-27 14:57 | CP.PCM.PN ---
Subjective - Date & Time of Evaluation Date of Evaluation: 02/27/17 Time of Evaluation: 14:45 - Subjective Subjective: Infectious Disease Follow Up: February 27, 2017 66 yo female presenting with AMS and lethargy. Patient lives in a 2 family house with her son and his family. The son went on a vacation 2 weeks ago and found the patient in an altered state of mind with generalized weakness at time but consistent lower body weakness. 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 The patient has not worked in the past month. When the son came back from a vacation in [place], the patient was found on the floor unclothed on the bottom half of her body. The son helped the patient to the toilet and saw blood in the bowl. During the day the patient has had periods of lucency but has remained immobile in bed. The patient has periods of being non verbal and very confused. The patient is awake and alert. It appears that the patient is more talkative when spoken to on a one to one basis. Objective - Vital Signs/Intake and Output Vital Signs (last 24 hours): Temp Pulse Resp BP Pulse Ox 100.0 F H 95 H 20 133/58 L 96 02/27/17 06:00 02/27/17 06:00 02/27/17 06:00 02/27/17 10:44 02/27/17 06:00 Intake and Output: 02/27/17 02/27/17 06:59 18:59 Intake Total 180 Output Total 2700 Balance -2520 - Medications Medications: Current Medications Acetaminophen (Tylenol 325mg Tab) 650 mg PO Q6H PRN PRN Reason: fever Last Admin: 02/25/17 06:11 Dose: 650 mg Atorvastatin Calcium (Lipitor) 40 mg PO DAILY [facility] Last Admin: 02/27/17 10:37 Dose: 40 mg Carvedilol (Coreg) 6.25 mg PO BID [facility] Last Admin: 02/27/17 10:36 Dose: 6.25 mg Insulin Human Regular (Humulin R Low) 0 units SC ACHS [facility] PRN Reason: Protocol Last Admin: 02/27/17 12:33 Dose: 4 units Lisinopril (Zestril) 5 mg PO DAILY [facility] Last Admin: 02/27/17 10:44 Dose: 5 mg Ondansetron HCl (Zofran Inj) 4 mg IVP Q6 PRN PRN Reason: Nausea/Vomiting Pantoprazole Sodium (Protonix Inj) 40 mg IVP DAILY [facility] Last Admin: 02/27/17 10:38 Dose: 40 mg Potassium Phos/Sodium Phos (Neutra-Phos) 1 pkt PO DAILY [facility] Last Admin: 02/27/17 10:38 Dose: 1 pkt - Labs Labs: 02/27/17 08:30 02/27/17 08:30 APTT 55.7 Seconds (25.1-36.5) H 02/22/17 08:30 - Constitutional Appears: Non-toxic, No Acute Distress, Chronically Ill - Head Exam Head Exam: ATRAUMATIC, NORMOCEPHALIC - Eye Exam Eye Exam: EOMI, PERRL Pupil Exam: NORMAL ACCOMODATION, PERRL - ENT Exam ENT Exam: Mucous Membranes Moist, Normal External Ear Exam, TM's Normal Bilaterally - Neck Exam Neck Exam: Full ROM, Normal Inspection - Respiratory Exam Respiratory Exam: Clear to Ausculation Bilateral, NORMAL BREATHING PATTERN. absent: Rales, Rhonchi, Wheezes - Cardiovascular Exam Cardiovascular Exam: REGULAR RHYTHM, RRR, +S1, +S2 - GI/Abdominal Exam GI & Abdominal Exam: Soft, Normal Bowel Sounds. absent: Distended, Tenderness - Extremities Exam Extremities Exam: Full ROM, Normal Inspection - Neurological Exam Neurological Exam: Alert, Awake, CN II-XII Intact, Oriented x3 - Psychiatric Exam Psychiatric exam: Normal Affect, Normal Mood - Skin Skin Exam: Intact, Normal Color Assessment and Plan - Assessment and Plan (Free Text) Assessment: 66 yo female with leukocytosis, AMS, periods of confusion and even being nonverbal, immobility. Difficult to obtain history as the patient is currently a poor and unreliable historian. The son states that the patient (mother) was very private and didn't tell him of any medical history. At this point the patient has tachycardia, elevated troponin (NSTEMI?), AMS, question of Rectal Cancer, Leukocytosis, and elevated creatinine as well as transaminitis. Would also consider lumbar puncture on the patient and obtaining cancer markers. CT Abdomen and pelvis shows a perirectal/pelvic mass of unknown origin. There are also multiple liver and lung lesions highly suspicious of metastatic disease. Possible biopsy by Dr. Tye Jaimes. Leukocytosis has slight left shift. Patient appears more talkative when spoken to one on one. Cultures negative. Stopped antibiotics and monitoring at this time. Thank you for allowing me to participate in the care of this patient, we will follow with you.
[2017-02-28] MEDS ORDERED: Pantoprazole 40 mg EC Tab PO SCH (06:00)
--- NOTE | 2017-02-28 06:10 | CP.PCM.PN ---
Subjective - Date & Time of Evaluation Date of Evaluation: 02/28/17 Time of Evaluation: 06:06 - Subjective Subjective: Ms. Golden was seen and examined at the bedside. She is alert with episode of confusion. She thinks it is 1968 and the President is Wily. She is aware that she is in [facility]. She further states of having episode of feeling uneasy overnight, but denies any headache, dizziness, lightheadedness, nausea, vomiting, weakness, or numbness. She can follow simple commands such as field accommodation, finger to nose test. and strength test.She is not in any kind of distress. Objective - Vital Signs/Intake and Output Vital Signs (last 24 hours): Temp Pulse Resp BP Pulse Ox 98.1 F 89 20 145/68 94 L 02/28/17 00:00 02/28/17 02:45 02/28/17 02:45 02/28/17 02:45 02/28/17 02:45 Intake and Output: 02/27/17 02/28/17 18:59 06:59 Intake Total 540 Balance 540 - Medications Medications: Current Medications Acetaminophen (Tylenol 325mg Tab) 650 mg PO Q6H PRN PRN Reason: fever Last Admin: 02/25/17 06:11 Dose: 650 mg Atorvastatin Calcium (Lipitor) 40 mg PO DAILY [facility] Last Admin: 02/27/17 10:37 Dose: 40 mg Carvedilol (Coreg) 6.25 mg PO BID [facility] Last Admin: 02/27/17 17:24 Dose: 6.25 mg Insulin Human Regular (Humulin R Low) 0 units SC ACHS [facility] PRN Reason: Protocol Last Admin: 02/27/17 22:41 Dose: Not Given Lisinopril (Zestril) 5 mg PO DAILY [facility] Last Admin: 02/27/17 10:44 Dose: 5 mg Ondansetron HCl (Zofran Inj) 4 mg IVP Q6 PRN PRN Reason: Nausea/Vomiting Pantoprazole Sodium (Protonix Ec Tab) 40 mg PO 0600 [facility] Potassium Phos/Sodium Phos (Neutra-Phos) 1 pkt PO DAILY [facility] Last Admin: 02/27/17 10:38 Dose: 1 pkt - Labs Labs: 02/27/17 08:30 02/27/17 08:30 APTT 55.7 Seconds (25.1-36.5) H 02/22/17 08:30 - Constitutional Appears: No Acute Distress - Head Exam Head Exam: ATRAUMATIC - Neurological Exam Neurological Exam: Awake Neuro motor strength exam: Left Upper Extremity: 5, Right Upper Extremity: 5, Left Lower Extremity: 5, Right Lower Extremity: 5 Additional comments: Neurological unchanged from presvious examination. She is not alert to time and person. She can follow simple commands such as field accommodation, finger to nose test. and strength test. Sensation remains intact. Assessment and Plan (1) Toxic metabolic encephalopathy Assessment & Plan: Case discussed with Dr. Ramos, continue all current medical, physical, and occupational therapies. There is no new recommendation from neurology. Status: Acute
[2017-02-28 06:56] LABS: BASO # 0.01 K/mm3 (0.0-2.0); BASO % 0.1 % (0.0-3.0); EOS # 0.3 (0.0-0.7); EOS % 1.7 % (1.5-5.0); GRAN # 12.64 (1.4-6.5); GRAN % 80.4 % (50.0-68.0); HEMATOCRIT 30.9 % (36.0-48.0); LYMPH # 1.1 (1.2-3.4); LYMPH % 7.2 % (22.0-35.0); MEAN CELL VOLUME 74.8 fl (80.0-105.0); MEAN CORPUSCULAR HEMOGLOBIN 24.5 pg (25.0-35.0); MEAN CORPUSCULAR HGB CONC 32.7 g/dl (31.0-37.0); MEAN PLATELET VOLUME 9.7 fl (7.0-11.0); MONO # 1.7 (0.1-0.6); MONO % 10.6 % (1.0-6.0); RED CELL DISTRIBUTION WIDTH 17.8 % (11.5-14.5); WHITE BLOOD COUNT 15.7 10^3/ul (4.5-11.0)
[2017-02-28 07:09] LABS: ALB/GLOB RATIO 0.9 (1.1-1.8); BILIRUBIN,TOTAL 0.9 mg/dL (0.2-1.3); CALCIUM 8.3 mg/dL (8.4-10.5); POTASSIUM 3.3 mmol/L (3.6-5.0); TOTAL PROTEIN 6.5 g/dL (5.8-8.3)
[2017-02-28] MEDS ORDERED: Potassium Chloride 20 mEq ER Tab PO ONE (08:33)
--- NOTE | 2017-02-28 08:50 | CON ---
DATE: 02/26/2017 HISTORY OF PRESENT ILLNESS: The patient is 66-year-old female with multiple medical issues including diabetes. The patient was admitted for evaluation of confusion and abdominal pain. The patient has multiple medical problems. The patient was found to have cancer possible metastatic cancer. Psych consult was called for evaluation of depressive symptoms and as well as confusion. The patient was seen and examined. The patient presented to be alert and oriented. The patient has some language barrier, but was able to communicate her needs. The patient reported that right now her abdominal pain is much better. Appetite is improving. The patient reported that she is depressed over her medical issues, but denied any thoughts of harming herself or others. The patient quite aware of her medical condition. The patient knows that she was found to have tumor. The patient has supportive family and the patient wants to move and claims to stay with her family. The patient denied hearing voices, denied seeing things. Denied paranoid ideation. The patient reports that overall she feels better. The patient was seen by multiple specialist as well as palliative care. PAST PSYCHIATRIC HISTORY: None. The patient denied history of being depressed and denied history of suicidal attempt. PHYSICAL EXAMINATION: VITAL SIGNS: Stable. Temperature is 98.4. The patient is mildly tachycardic, pulse is 97, blood pressure is 101/74, respirations 18. MEDICATIONS: Reviewed. The patient is on Tylenol, Lipitor, Coreg, Humulin, Zofran, Protonix and Neutra-Phos. LABORATORY DATA: Reviewed. The patient has hemoglobin 6.9, blood transfusion reports reviewed. Discussed with the medical social worker. MENTAL STATUS EXAM: The patient presented to be alert. The patient knows that she is in the hospital, intermittent eye contact, speech was under productive, low volume. Mood described depressed because of the medical problems. Affect was constricted. Thought process was coherent and goal directed. Thought content, the patient denied visual, auditory or tactile hallucinations. Denied paranoid ideation. The patient denied thoughts of harming herself or others. Denied intent or plan. Insight and judgment are fair. Impulses are well controlled. IMPRESSION: Rule out mood disorder due to general medical condition and confusion could be related to the multiple medical issues, low hemoglobin level, the patient was found to have metastatic cancer. Please see medical team notes for more detailed information. PLAN: Continue current management. The patient denied thoughts of harming herself or others. The patient has multiple medical issues which could give the patient confusion. The patient has supportive family. The patient was seen by palliative care and advanced directive, was discussed with the patient. The patient reported to have fair appetite and sleep. The patient was found to be not in any imminent danger to self or others. Case was discussed with the medical team and medical social worker. This public relations writer will sign off. Supportive therapy was provided for the patient. Should you have any questions give me a call back. Thank you so much for letting me participate in care of your patient. Crystal Wilson MD
[2017-02-28] MEDS: Insulin Reg-LOW-Coverage SC SCH ×2 (08:59→13:17)
[2017-02-28] MEDS: Potassium & Sodium Phosphate PO SCH (09:57)
--- NOTE | 2017-02-28 13:29 | CP.PCM.PN ---
Subjective - Date & Time of Evaluation Date of Evaluation: 02/28/17 Time of Evaluation: 11:00 - Subjective Subjective: Awake, [id number] to self.Offer no complaints Objective - Vital Signs/Intake and Output Vital Signs (last 24 hours): Temp Pulse Resp BP Pulse Ox 98.7 F 90 20 141/80 98 02/28/17 08:26 02/28/17 09:55 02/28/17 08:26 02/28/17 09:55 02/28/17 08:26 Intake and Output: 02/28/17 02/28/17 06:59 18:59 Intake Total 540 Balance 540 - Medications Medications: Current Medications Acetaminophen (Tylenol 325mg Tab) 650 mg PO Q6H PRN PRN Reason: fever Last Admin: 02/25/17 06:11 Dose: 650 mg Atorvastatin Calcium (Lipitor) 40 mg PO DAILY [facility] Last Admin: 02/28/17 09:56 Dose: 40 mg Carvedilol (Coreg) 6.25 mg PO BID [facility] Last Admin: 02/28/17 09:55 Dose: 6.25 mg Insulin Human Regular (Humulin R Low) 0 units SC ACHS [facility] PRN Reason: Protocol Last Admin: 02/28/17 08:59 Dose: 2 units Lisinopril (Zestril) 2.5 mg PO DAILY [facility] Last Admin: 02/28/17 09:57 Dose: 2.5 mg Ondansetron HCl (Zofran Inj) 4 mg IVP Q6 PRN PRN Reason: Nausea/Vomiting Pantoprazole Sodium (Protonix Ec Tab) 40 mg PO 0600 [facility] Last Admin: 02/28/17 06:12 Dose: 40 mg Potassium Phos/Sodium Phos (Neutra-Phos) 1 pkt PO DAILY [facility] Last Admin: 02/28/17 09:57 Dose: 1 pkt - Labs Labs: 02/28/17 06:30 02/28/17 06:30 APTT 55.7 Seconds (25.1-36.5) H 02/22/17 08:30 - Constitutional Appears: No Acute Distress - Eye Exam Eye Exam: Normal appearance, PERRL - ENT Exam ENT Exam: Mucous Membranes Moist - Neck Exam Neck Exam: Normal Inspection - Respiratory Exam Respiratory Exam: Clear to Ausculation Bilateral, NORMAL BREATHING PATTERN - Cardiovascular Exam Cardiovascular Exam: REGULAR RHYTHM, +S1, +S2 - GI/Abdominal Exam GI & Abdominal Exam: Soft, Normal Bowel Sounds - Back Exam Back Exam: Full ROM, NORMAL INSPECTION - Skin Skin Exam: Dry, Warm Assessment and Plan - Assessment and Plan (Free Text) Assessment: 66 year old female with history of DM who is admitted with hypercalcemia, altered mental status, masses in pelvis, liver and lungs. She is s/p liver biopsy, result pending The patient is alert. She can not articulate reason for her hospitalization. When asked if she knows that there is masses in her lung, liver and abdomen she shakes her head yes. Her affect is flat. I explained that she likely has an advance type of cancer. When asked if she intends to pursue treatment if diagnosed cancer,she shrugs her shoulders. States she will discuss with her children. Advance care planning conversation ensued. Patient states she knows what "DNR" is but does not want to make any decisions today. I strongly encouraged her to designate one of her children as health care proxy. Family meeting held; Dr.T. Apodaca, myself, DANTE Franklin and rifle case repairer , Shellie mcgraw met with patients two sons and daughter. Family aware that the patient is seriously ill with advanced cancer. Family told that the patient has been made aware of her illness but has not been willing to discuss goals of care or advance care planning with the medical team. It was explained that family needs to decide who will be responsible for mothers daily care and medical/financial decision making. Eldest son, Fernando made it very clear that he will no longer take responsibility for any of his mother needs. The patients daughter has come from [place] and intends to stay and care for her mother. Options for care; palliative chemotherapy or hospice care explained to family. DANTE explained the importance of applying for medicaid / [place] care coverage.Questions answered. Psychosocial support given. Time spent with patient and family in goals of care and advance care planning discussion, 40 minutes Plan: Palliative support in establishing goals of care and advance care planning
--- NOTE | 2017-02-28 15:42 | CP.PCM.DIS ---
<Jake Apodaca - Last Filed: 02/28/17 15:44> Provider - Provider Date of Admission: 02/22/17 00:29 Attending physician: Emily Kaplan MD Primary care physician: NO PRIMARY CARE PROVIDER Consults: [facility] care - [facility] - Dr. De Jesus Neurology - Dr. Ramos Time Spent in preparation of Discharge (in minutes): 45 Hospital Course - Lab Results Lab Results: Micro Results 02/27/17 17:25 Stool C. difficile Antigen & Toxin A,B (M - Final 02/24/17 09:25 Blood Blood Culture - Preliminary NO GROWTH AFTER 4 DAYS 02/24/17 09:10 Blood Blood Culture - Preliminary NO GROWTH AFTER 4 DAYS 02/22/17 00:30 Urine,Clean Catch Urine Culture - Final No Growth (<1,000 CFU/ML) Most Recent Lab Values WBC 15.7 10^3/ul (4.5-11.0) H 02/28/17 06:30 RBC 4.13 10^6/uL (3.5-6.1) 02/28/17 06:30 Hgb 10.1 g/dL (12.0-16.0) L 02/28/17 06:30 Hct 30.9 % (36.0-48.0) L 02/28/17 06:30 MCV 74.8 fl (80.0-105.0) L 02/28/17 06:30 MCH 24.5 pg (25.0-35.0) L 02/28/17 06:30 MCHC 32.7 g/dl (31.0-37.0) 02/28/17 06:30 RDW 17.8 % (11.5-14.5) H 02/28/17 06:30 Plt Count 298 10^3/uL (120.0-450.0) 02/28/17 06:30 MPV 9.7 fl (7.0-11.0) 02/28/17 06:30 Gran % 80.4 % (50.0-68.0) H 02/28/17 06:30 Lymph % (Auto) 7.2 % (22.0-35.0) L 02/28/17 06:30 Brantley % (Auto) 10.6 % (1.0-6.0) H 02/28/17 06:30 Eos % (Auto) 1.7 % (1.5-5.0) 02/28/17 06:30 Baso % (Auto) 0.1 % (0.0-3.0) 02/28/17 06:30 Gran # 12.64 (1.4-6.5) H 02/28/17 06:30 Lymph # 1.1 (1.2-3.4) L 02/28/17 06:30 Brantley # 1.7 (0.1-0.6) H 02/28/17 06:30 Eos # 0.3 (0.0-0.7) 02/28/17 06:30 Baso # 0.01 K/mm3 (0.0-2.0) 02/28/17 06:30 APTT 55.7 Seconds (25.1-36.5) H 02/22/17 08:30 pO2 56 mm/Hg (30-55) H 02/22/17 22:10 ABG Carboxyhemoglobin 2.7 % (0.5-1.5) H 02/21/17 22:15 POC ABG HHb (Measured) 40.4 % (0-5) H 02/21/17 22:15 ABG Methemoglobin 0.7 % (0.0-3.0) 02/21/17 22:15 VBG pH 7.54 (7.32-7.43) H 02/22/17 22:10 VBG pCO2 28.0 (40-60) L 02/22/17 22:10 VBG HCO3 23.9 mmol/l (21-28) 02/22/17 22:10 VBG Total CO2 24.8 mmol.L (22-28) 02/22/17 22:10 VBG O2 Sat (Calc) 95.6 % (40-65) H 02/22/17 22:10 VBG Base Excess 2.3 mmol/L (0.0-2.0) H 02/22/17 22:10 VBG Hgb O2 Saturation 56.1 % (95.0-98.0) L 02/21/17 22:15 VBG Potassium 3.4 mmol/L (3.6-5.2) L 02/22/17 22:10 Hemoglobin 8.2 g/dL (11.7-17.4) L 02/21/17 22:15 Sodium 141.0 mmol/L (132-148) 02/22/17 22:10 Chloride 110.0 mmol/L (98-107) H 02/22/17 22:10 Glucose 200 mg/dl (65-105) H 02/22/17 22:10 Lactate 2.3 mmol/L (0.7-2.1) H 02/22/17 22:10 FiO2 21.0 % 02/22/17 22:10 Sodium 139 mmol/L (132-148) 02/28/17 06:30 Potassium 3.3 mmol/L (3.6-5.0) L 02/28/17 06:30 Chloride 101 mmol/L (98-107) 02/28/17 06:30 Carbon Dioxide 28 mmol/L (21-33) 02/28/17 06:30 Anion Gap 13 (10-20) 02/28/17 06:30 BUN 11 mg/dL (7-21) 02/28/17 06:30 Creatinine 1.3 mg/dl (0.7-1.2) H 02/28/17 06:30 Est GFR ( Amer) 50 02/28/17 06:30 Est GFR (Non-Af Amer) 41 02/28/17 06:30 POC Glucose (mg/dL) 223 mg/dL (65-110) H 02/28/17 07:31 Random Glucose 193 mg/dL (70-110) H 02/28/17 06:30 Hemoglobin A1c 8.0 % (4.2-6.5) H 02/22/17 01:45 Uric Acid 8.6 mg/dL (2.5-6.2) H 02/23/17 09:00 Calcium 8.3 mg/dL (8.4-10.5) L 02/28/17 06:30 Phosphorus 2.4 mg/dL (2.5-4.5) L 02/24/17 15:00 Magnesium 1.9 mg/dL (1.7-2.2) 02/24/17 15:00 Iron < 10 ug/dL (45-180) L 02/22/17 02:45 TIBC 221 ug/dL (265-497) L 02/22/17 02:45 % Saturation 4.5 (20-55) L 02/22/17 02:45 Ferritin 213.0 ng/mL 02/22/17 02:45 Total Bilirubin 0.9 mg/dL (0.2-1.3) 02/28/17 06:30 Direct Bilirubin 0.6 mg/dL (0.0-0.4) H 02/22/17 02:45 AST 86 U/L (14-36) H 02/28/17 06:30 ALT 81 U/L (7-56) H 02/28/17 06:30 Alkaline Phosphatase 401 U/L (38-126) H 02/28/17 06:30 Ammonia < 9 umol/L (9-33) L 02/22/17 02:45 Lactate Dehydrogenase 1883 U/L (333-699) H 02/21/17 22:15 Total Creatine Kinase 70 U/L (35-230) 02/21/17 22:15 Troponin I 0.23 ng/mL H* D 02/22/17 09:45 Total Protein 6.5 g/dL (5.8-8.3) 02/28/17 06:30 Albumin 3.1 g/dL (3.0-4.8) 02/28/17 06:30 Globulin 3.4 gm/dL 02/28/17 06:30 Albumin/Globulin Ratio 0.9 (1.1-1.8) L 02/28/17 06:30 Triglycerides 119 mg/dL (35-160) 02/22/17 02:45 Cholesterol 146 mg/dL (130-200) 02/22/17 02:45 LDL Cholesterol Direct 48 mg/dL (0-129) 02/22/17 02:45 HDL Cholesterol 57 mg/dL (29-60) 02/22/17 02:45 Amylase 43 U/L (35-125) 02/22/17 02:45 Lipase 411 U/L (23-300) H 02/22/17 02:45 Carcinoembryonic Ag 4.5 ng/mL (0.0-3.0) H 02/22/17 06:00 CA 125 Antigen 414 U/mL (0-35) H 02/22/17 09:45 Vitamin B12 > 1000 pg/mL (239-931) H 02/22/17 02:45 25-OH Vitamin D Total 24.4 NG/ML (30.0-100.0) L 02/23/17 09:55 Folate 10.0 ng/mL 02/22/17 02:45 Procalcitonin 1.90 NG/ML (0.19-0.49) H 02/25/17 12:10 TSH 3rd Generation 3.02 mIU/mL (0.46-4.68) 02/25/17 12:10 PTH Intact Whole Molec 6 pg/mL (14-64) L 02/22/17 06:00 Venous Blood Potassium 3.4 mmol/L (3.6-5.2) L 02/22/17 22:10 Urine Color Yellow (YELLOW) 02/22/17 00:30 Urine Appearance Sl cloudy (CLEAR) 02/22/17 00:30 Urine pH 5.5 (4.7-8.0) 02/22/17 00:30 Ur Specific [place] 1.025 (1.005-1.035) 02/22/17 00:30 Urine Protein 30 mg/dL (<30 mg/dL) H 02/22/17 00:30 Urine Glucose (UA) 500 mg/dL (NEGATIVE) H 02/22/17 00:30 Urine Ketones Trace mg/dL (NEGATIVE) H 02/22/17 00:30 Urine Blood Trace-intact (NEGATIVE) H 02/22/17 00:30 Urine Nitrate Negative (NEGATIVE) 02/22/17 00:30 Urine Bilirubin Negative (NEGATIVE) 02/22/17 00:30 Urine Urobilinogen 0.2 E.U./dL (<1 E.U./dL) 02/22/17 00:30 Ur Leukocyte Esterase Negative Donato/uL (NEGATIVE) 02/22/17 00:30 Urine RBC 0 - 2 /hpf (0-2) 02/22/17 00:30 Urine WBC 0 - 2 /hpf (0-6) 02/22/17 00:30 Ur Epithelial Cells 0 - 2 /hpf (0-5) 02/22/17 00:30 Urine Bacteria Few (NEG) 02/22/17 00:30 Stool Occult Blood Negative (NEGATIVE) 02/27/17 17:25 RPR Nonreactive (NONREACTIVE) 02/25/17 12:10 Hepatitis A IgM Ab Negative (NEGATIVE) 02/24/17 09:25 Hep Bs Antigen Negative (NEGATIVE) 02/24/17 09:25 Hep B Core IgM Ab Negative (NEGATIVE) 02/24/17 09:25 Hepatitis C Antibody Negative (NEGATIVE) 02/24/17 09:25 HIV 1&2 Ag/Ab, 4th Gen Nonreactive (Nonreactive) 02/25/17 12:10 Blood Type B POSITIVE 02/25/17 06:00 Blood Type Confirm B POSITIVE 02/22/17 02:56 Antibody Screen Negative 02/25/17 06:00 Crossmatch See Detail 02/25/17 06:00 BBK History Checked Patient has bt 02/25/17 06:00 - Hospital Course Hospital Course: HPI: 66 year old female with unknown past medical history presents to the ED with AMS and lethargy. Per ED Nurse, the patient lives in the basement of a house with her son. 2 weeks ago patient went on vacation, and before leaving checked on his mother she was doing okay. After he returned today, the patient seemed to not be acting like her normal self. Unable to obtain a complete HPI DUE to AMS and lethargy. Hospital Course: Imaging: CXR: NAD CT Abd/Pelvis: L perirectal/pelvic mass contiguous with lower uterus and bladder with obstruction of distal L ureter - hepatic METS and Pulm METS CT Head: No acute findings MRI Brain: No acute findings Liver Bx CT: Preliminary findings consistent with malignancy with unknown origin While Ms. Golden was in the hospital, it was difficult to get an appropriate history out of her. She was exhibiting signs of selective mutism, which was misconstrued as having AMS. However, pt was fully AAOX4 throughout her stay, she is just a very private person. While here, it was found that pt has rectal CA with METS to her liver and lungs. CT guided Liver Bx showed malignancy of unknown origin. Patient was also found to be severely hypercalcemic. 1 dose of aredia was sufficient to bring patient back into a normal range. Patient further had acute renal insufficiency 2/2 obstructive uropathy, which resolved by the time of discharge. Patient's fields was taken out, and she was able to void. Patient's tropes were elevated, 2/2 demand ischemia. Because of her leukocytosis, patient was started on Rocephin, which was stopped after 5 days because patient showed no signs of infection and remained afebrile. We determined throughout her stay that patient has some family issues. Her relationship with her oldest son, Fernando, is strained, though she lives in the basement of his two family home. Upon discharge, Fernando said that he will not be participating in his mother's care, but that she and his sister were welcome to stay in the basement. Patient was advised to follow up with Dr. Jarvis for mcc care of her malignancy and to follow up with her PMD, Dr. Linder, on discharge. Discharge Exam - Head Exam Head Exam: ATRAUMATIC - Additional Findings Additional findings: Phys Exam: VS as below Const'l: a&o x 4, but exhibits selective mutism; nad Head/Neck: neck supple, no jvd, trachea midline, carotid midline, no cervical /head mass Eyes: bere, nonicteric sclera, eom intact ENT: auditory acuity grossly intact, throat not congested, no nasal deformity Cardio: rrr, no m/r/g, no carotid bruit, nml s1, s2 Pulm: no accessory muscle use, equal nml breath sounds bilaterally, ctab Abd: + R sided access point is c/d/i. No TTP; s/nt/nd, nbs x 4 q, no palpable masses Derm: no rashes, no ulcers, no lesions Extr: no edema, no cyanosis, no calf tenderness, no lesions, no varicosities Neuro: cn II-XII grossly intact, ue and le 5/5 muscle strength bilaterally, no los ue, le bilaterally and core Discharge Plan - Discharge Medications Prescriptions: Atorvastatin [Lipitor] 40 mg PO DAILY #30 tab Carvedilol [Coreg] 6.25 mg PO BID #60 tab Lisinopril [Zestril] 2.5 mg PO DAILY #60 tab Phosphorus/Potassium/Sodium [Neutra-Phos] 1 pkt PO DAILY #5 packet - Follow Up Plan Condition: FAIR Disposition: HOME/ ROUTINE Patient education suggested?: Yes Instructions: Colorectal Cancer (DC) Additional Instructions: 1. Please take your new medications as prescribed 2. Upon discharge, you will need to set up an appointment with Dr. Jarvis, the cancer doctor, to determine the next steps in your care 3. You or your family will need to obtain insurance coverage via [facility] [employer] or medicare. The details were discussed in the family meeting on 02/28. 4. If your symptoms persist or worsen, please return to the ED. Referrals: PCP,NO [Primary Care Provider] - <Emily Kaplan - Last Filed: 02/28/17 17:25> Provider - Provider Date of Admission: 02/22/17 00:29 Attending physician: Emily Kaplan MD Primary care physician: GURDEEP PRIMARY CARE PROVIDER Hospital Course - Lab Results Lab Results: Micro Results 02/27/17 17:25 Stool C. difficile Antigen & Toxin A,B (M - Final 02/24/17 09:25 Blood Blood Culture - Preliminary NO GROWTH AFTER 4 DAYS 02/24/17 09:10 Blood Blood Culture - Preliminary NO GROWTH AFTER 4 DAYS 02/22/17 00:30 Urine,Clean Catch Urine Culture - Final No Growth (<1,000 CFU/ML) Most Recent Lab Values WBC 15.7 10^3/ul (4.5-11.0) H 02/28/17 06:30 RBC 4.13 10^6/uL (3.5-6.1) 02/28/17 06:30 Hgb 10.1 g/dL (12.0-16.0) L 02/28/17 06:30 Hct 30.9 % (36.0-48.0) L 02/28/17 06:30 MCV 74.8 fl (80.0-105.0) L 02/28/17 06:30 MCH 24.5 pg (25.0-35.0) L 02/28/17 06:30 MCHC 32.7 g/dl (31.0-37.0) 02/28/17 06:30 RDW 17.8 % (11.5-14.5) H 02/28/17 06:30 Plt Count 298 10^3/uL (120.0-450.0) 02/28/17 06:30 MPV 9.7 fl (7.0-11.0) 02/28/17 06:30 Gran % 80.4 % (50.0-68.0) H 02/28/17 06:30 Lymph % (Auto) 7.2 % (22.0-35.0) L 02/28/17 06:30 Brantley % (Auto) 10.6 % (1.0-6.0) H 02/28/17 06:30 Eos % (Auto) 1.7 % (1.5-5.0) 02/28/17 06:30 Baso % (Auto) 0.1 % (0.0-3.0) 02/28/17 06:30 Gran # 12.64 (1.4-6.5) H 02/28/17 06:30 Lymph # 1.1 (1.2-3.4) L 02/28/17 06:30 Brantley # 1.7 (0.1-0.6) H 02/28/17 06:30 Eos # 0.3 (0.0-0.7) 02/28/17 06:30 Baso # 0.01 K/mm3 (0.0-2.0) 02/28/17 06:30 APTT 55.7 Seconds (25.1-36.5) H 02/22/17 08:30 pO2 56 mm/Hg (30-55) H 02/22/17 22:10 ABG Carboxyhemoglobin 2.7 % (0.5-1.5) H 02/21/17 22:15 POC ABG HHb (Measured) 40.4 % (0-5) H 02/21/17 22:15 ABG Methemoglobin 0.7 % (0.0-3.0) 02/21/17 22:15 VBG pH 7.54 (7.32-7.43) H 02/22/17 22:10 VBG pCO2 28.0 (40-60) L 02/22/17 22:10 VBG HCO3 23.9 mmol/l (21-28) 02/22/17 22:10 VBG Total CO2 24.8 mmol.L (22-28) 02/22/17 22:10 VBG O2 Sat (Calc) 95.6 % (40-65) H 02/22/17 22:10 VBG Base Excess 2.3 mmol/L (0.0-2.0) H 02/22/17 22:10 VBG Hgb O2 Saturation 56.1 % (95.0-98.0) L 02/21/17 22:15 VBG Potassium 3.4 mmol/L (3.6-5.2) L 02/22/17 22:10 Hemoglobin 8.2 g/dL (11.7-17.4) L 02/21/17 22:15 Sodium 141.0 mmol/L (132-148) 02/22/17 22:10 Chloride 110.0 mmol/L (98-107) H 02/22/17 22:10 Glucose 200 mg/dl (65-105) H 02/22/17 22:10 Lactate 2.3 mmol/L (0.7-2.1) H 02/22/17 22:10 FiO2 21.0 % 02/22/17 22:10 Sodium 139 mmol/L (132-148) 02/28/17 06:30 Potassium 3.3 mmol/L (3.6-5.0) L 02/28/17 06:30 Chloride 101 mmol/L (98-107) 02/28/17 06:30 Carbon Dioxide 28 mmol/L (21-33) 02/28/17 06:30 Anion Gap 13 (10-20) 02/28/17 06:30 BUN 11 mg/dL (7-21) 02/28/17 06:30 Creatinine 1.3 mg/dl (0.7-1.2) H 02/28/17 06:30 Est GFR ( Amer) 50 02/28/17 06:30 Est GFR (Non-Af Amer) 41 02/28/17 06:30 POC Glucose (mg/dL) 149 mg/dL (65-110) H 02/28/17 15:38 Random Glucose 193 mg/dL (70-110) H 02/28/17 06:30 Hemoglobin A1c 8.0 % (4.2-6.5) H 02/22/17 01:45 Uric Acid 8.6 mg/dL (2.5-6.2) H 02/23/17 09:00 Calcium 8.3 mg/dL (8.4-10.5) L 02/28/17 06:30 Phosphorus 2.4 mg/dL (2.5-4.5) L 02/24/17 15:00 Magnesium 1.9 mg/dL (1.7-2.2) 02/24/17 15:00 Iron < 10 ug/dL (45-180) L 02/22/17 02:45 TIBC 221 ug/dL (265-497) L 02/22/17 02:45 % Saturation 4.5 (20-55) L 02/22/17 02:45 Ferritin 213.0 ng/mL 02/22/17 02:45 Total Bilirubin 0.9 mg/dL (0.2-1.3) 02/28/17 06:30 Direct Bilirubin 0.6 mg/dL (0.0-0.4) H 02/22/17 02:45 AST 86 U/L (14-36) H 02/28/17 06:30 ALT 81 U/L (7-56) H 02/28/17 06:30 Alkaline Phosphatase 401 U/L (38-126) H 02/28/17 06:30 Ammonia < 9 umol/L (9-33) L 02/22/17 02:45 Lactate Dehydrogenase 1883 U/L (333-699) H 02/21/17 22:15 Total Creatine Kinase 70 U/L (35-230) 02/21/17 22:15 Troponin I 0.23 ng/mL H* D 02/22/17 09:45 Total Protein 6.5 g/dL (5.8-8.3) 02/28/17 06:30 Albumin 3.1 g/dL (3.0-4.8) 02/28/17 06:30 Globulin 3.4 gm/dL 02/28/17 06:30 Albumin/Globulin Ratio 0.9 (1.1-1.8) L 02/28/17 06:30 Triglycerides 119 mg/dL (35-160) 02/22/17 02:45 Cholesterol 146 mg/dL (130-200) 02/22/17 02:45 LDL Cholesterol Direct 48 mg/dL (0-129) 02/22/17 02:45 HDL Cholesterol 57 mg/dL (29-60) 02/22/17 02:45 Amylase 43 U/L (35-125) 02/22/17 02:45 Lipase 411 U/L (23-300) H 02/22/17 02:45 Carcinoembryonic Ag 4.5 ng/mL (0.0-3.0) H 02/22/17 06:00 CA 125 Antigen 414 U/mL (0-35) H 02/22/17 09:45 Vitamin B12 > 1000 pg/mL (239-931) H 02/22/17 02:45 25-OH Vitamin D Total 24.4 NG/ML (30.0-100.0) L 02/23/17 09:55 Folate 10.0 ng/mL 02/22/17 02:45 Procalcitonin 1.90 NG/ML (0.19-0.49) H 02/25/17 12:10 TSH 3rd Generation 3.02 mIU/mL (0.46-4.68) 02/25/17 12:10 PTH Intact Whole Molec 6 pg/mL (14-64) L 02/22/17 06:00 Venous Blood Potassium 3.4 mmol/L (3.6-5.2) L 02/22/17 22:10 Urine Color Yellow (YELLOW) 02/22/17 00:30 Urine Appearance Sl cloudy (CLEAR) 02/22/17 00:30 Urine pH 5.5 (4.7-8.0) 02/22/17 00:30 Ur Specific [place] 1.025 (1.005-1.035) 02/22/17 00:30 Urine Protein 30 mg/dL (<30 mg/dL) H 02/22/17 00:30 Urine Glucose (UA) 500 mg/dL (NEGATIVE) H 02/22/17 00:30 Urine Ketones Trace mg/dL (NEGATIVE) H 02/22/17 00:30 Urine Blood Trace-intact (NEGATIVE) H 02/22/17 00:30 Urine Nitrate Negative (NEGATIVE) 02/22/17 00:30 Urine Bilirubin Negative (NEGATIVE) 02/22/17 00:30 Urine Urobilinogen 0.2 E.U./dL (<1 E.U./dL) 02/22/17 00:30 Ur Leukocyte Esterase Negative Donato/uL (NEGATIVE) 02/22/17 00:30 Urine RBC 0 - 2 /hpf (0-2) 02/22/17 00:30 Urine WBC 0 - 2 /hpf (0-6) 02/22/17 00:30 Ur Epithelial Cells 0 - 2 /hpf (0-5) 02/22/17 00:30 Urine Bacteria Few (NEG) 02/22/17 00:30 Stool Occult Blood Negative (NEGATIVE) 02/27/17 17:25 RPR Nonreactive (NONREACTIVE) 02/25/17 12:10 Hepatitis A IgM Ab Negative (NEGATIVE) 02/24/17 09:25 Hep Bs Antigen Negative (NEGATIVE) 02/24/17 09:25 Hep B Core IgM Ab Negative (NEGATIVE) 02/24/17 09:25 Hepatitis C Antibody Negative (NEGATIVE) 02/24/17 09:25 HIV 1&2 Ag/Ab, 4th Gen Nonreactive (Nonreactive) 02/25/17 12:10 Blood Type B POSITIVE 02/25/17 06:00 Blood Type Confirm B POSITIVE 02/22/17 02:56 Antibody Screen Negative 02/25/17 06:00 Crossmatch See Detail 02/25/17 06:00 BBK History Checked Patient has bt 02/25/17 06:00 Attending/Attestation - Attestation I have personally seen and examined this patient.: Yes I have fully participated in the care of the patient.: Yes I have reviewed all pertinent clinical information, including history, physical exam and plan: Yes Notes (Text): I have seen and examined the patient at bedside. Agree with the above note with the following additions/ exceptions: Briefly this is 66 year old female with history of DM-2 who came for evaluation of AMS and found to have renal insufficiency (cr 1.7), elevated troponin, leukocytosis, elevated LA, anemia ( 7.7), electrolyte abnormalities including hypercalcemia (14.6) and uterine vs GI mass on CT scan. Today patient appears well and is able to answer all questions. She is AAO X3. Patient expressed that she has been very depressed because her son does not want her to stay in his house. She was seen by psychiatrist. She does not have any suicidal or homicidal ideation. Patient does not have any focal deficits. CT head negative. MRI brain is negative. Patient was given aredia which is helping to lower calcium. Hypercalcemia is due to malignancy. Her renal insufficiency is probably secondary to obstructive uropathy. Patient underwent CT guided biopsy of liver mets which she tolerated well. Prelim results revealed metastatic carcinoma. Official results will be back by next week. Results were communicated to the family and oncologist Dr Augustin. Patient has anemia s/p 3 units prbc. There is no active bleeding. Patient had elevated troponin which is secondary to demand ischemia. Aspirin, plavix and heparin was discontinued. Continue coreg. Lisinopril 2.5 was added to control BP. Echo is normal. Patient has been afebrile and has leukocytosis. Blood and urine cultures are negative. Discussed with Dr De Jesus. He advised not to do LP at this time as patient is very alert,oriented and has been on IV antibiotics. Antibiotics were stopped Fields was discontinued and she was able to void. PT recommended HWS. At this time, patient does not have insurance. SW helped her and gave all the information. Patients daughter came from [place] to take care of her. I had a detailed discussion with patient's son and daughter in law who came for [place]. Advised the family that patient should fllow up with Dr Augustin early next week. Palliative care consult was also obtained. Family agrees with the plan. Upon discharge patient will follow up with Dr Linder. Dr Emily Kaplan.
[2017-02-28 16:09] VITALS: BP 130/59; RESP 18; TEMP 100.1; O2SAT 99
--- NOTE | 2017-02-28 16:29 | CP.PCM.PN ---
Subjective - Date & Time of Evaluation Date of Evaluation: 02/28/17 Time of Evaluation: 14:30 - Subjective Subjective: Infectious Disease Follow Up: February 28, 2017 66 yo female presenting with AMS and lethargy. Patient lives in a 2 family house with her son and his family. The son went on a vacation 2 weeks ago and found the patient in an altered state of mind with generalized weakness at time but consistent lower body weakness. 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 The patient has not worked in the past month. When the son came back from a vacation in [place], the patient was found on the floor unclothed on the bottom half of her body. The son helped the patient to the toilet and saw blood in the bowl. During the day the patient has had periods of lucency but has remained immobile in bed. The patient has periods of being non verbal and very confused. The patient is awake and alert. It appears that the patient is more talkative when spoken to on a one to one basis. She will be going home with other family members today. Objective - Vital Signs/Intake and Output Vital Signs (last 24 hours): Temp Pulse Resp BP Pulse Ox 100.1 F H 85 18 130/59 L 99 02/28/17 16:08 02/28/17 16:08 02/28/17 16:08 02/28/17 16:08 02/28/17 16:08 Intake and Output: 02/28/17 02/28/17 06:59 18:59 Intake Total 540 Balance 540 - Medications Medications: Current Medications Acetaminophen (Tylenol 325mg Tab) 650 mg PO Q6H PRN PRN Reason: fever Last Admin: 02/25/17 06:11 Dose: 650 mg Atorvastatin Calcium (Lipitor) 40 mg PO DAILY [facility] Last Admin: 02/28/17 09:56 Dose: 40 mg Carvedilol (Coreg) 6.25 mg PO BID [facility] Last Admin: 02/28/17 09:55 Dose: 6.25 mg Insulin Human Regular (Humulin R Low) 0 units SC ACHS [facility] PRN Reason: Protocol Last Admin: 02/28/17 13:17 Dose: 2 units Lisinopril (Zestril) 2.5 mg PO DAILY [facility] Last Admin: 02/28/17 09:57 Dose: 2.5 mg Ondansetron HCl (Zofran Inj) 4 mg IVP Q6 PRN PRN Reason: Nausea/Vomiting Pantoprazole Sodium (Protonix Ec Tab) 40 mg PO 0600 [facility] Last Admin: 02/28/17 06:12 Dose: 40 mg Potassium Phos/Sodium Phos (Neutra-Phos) 1 pkt PO DAILY [facility] Last Admin: 02/28/17 09:57 Dose: 1 pkt - Labs Labs: 02/28/17 06:30 02/28/17 06:30 APTT 55.7 Seconds (25.1-36.5) H 02/22/17 08:30 - Constitutional Appears: Non-toxic, No Acute Distress, Chronically Ill - Head Exam Head Exam: ATRAUMATIC, NORMOCEPHALIC - Eye Exam Eye Exam: EOMI, PERRL Pupil Exam: NORMAL ACCOMODATION, PERRL - ENT Exam ENT Exam: Mucous Membranes Moist, Normal External Ear Exam, TM's Normal Bilaterally - Neck Exam Neck Exam: Full ROM, Normal Inspection - Cardiovascular Exam Cardiovascular Exam: REGULAR RHYTHM, RRR, +S1, +S2 - GI/Abdominal Exam GI & Abdominal Exam: Soft, Normal Bowel Sounds. absent: Distended, Tenderness - Extremities Exam Extremities Exam: Full ROM, Normal Inspection - Neurological Exam Neurological Exam: Alert, Awake, CN II-XII Intact, Oriented x3 - Psychiatric Exam Psychiatric exam: Normal Affect, Normal Mood - Skin Skin Exam: Intact, Normal Color Assessment and Plan - Assessment and Plan (Free Text) Assessment: 66 yo female with leukocytosis, AMS, periods of confusion and even being nonverbal, immobility. Difficult to obtain history as the patient is currently a poor and unreliable historian. The son states that the patient (mother) was very private and didn't tell him of any medical history. At this point the patient has tachycardia, elevated troponin (NSTEMI?), AMS, question of Rectal Cancer, Leukocytosis, and elevated creatinine as well as transaminitis. Would also consider lumbar puncture on the patient and obtaining cancer markers. CT Abdomen and pelvis shows a perirectal/pelvic mass of unknown origin. There are also multiple liver and lung lesions highly suspicious of metastatic disease. Possible biopsy by Dr. Tye Jaimes. Leukocytosis has slight left shift. Patient appears more talkative when spoken to one on one. Cultures negative. Stopped antibiotics and monitoring at this time. Thank you for allowing me to participate in the care of this patient, we will follow with you.
[2017-02-28 17:37] VITALS: PULSE 60
== END 2017-02-28 19:00 | disposition home or self-care (01) | DRG 435 ==
LOC: ED 21:57 → ERH 02-22 00:29 → 3RSO 02-22 03:04 → 3RNO 02-24 14:01
PROVIDERS: ADMIT Internal Medicine; ATTEND Hospitalist
PROC: 30233N1 Transfusion of Nonautologous Red Blood Cells into Peripheral Vein, Percutaneous Approach (ICD-10-PCS; 2017-02-22)
PROC: 30233K1 Transfusion of Nonautologous Frozen Plasma into Peripheral Vein, Percutaneous Approach (ICD-10-PCS; 2017-02-25)
PROC: 0FB13ZX Excision of Right Lobe Liver, Percutaneous Approach, Diagnostic (ICD-10-PCS; principal; 2017-02-25 16:00)
DX: C78.7 Secondary malignant neoplasm of liver and intrahepatic bile duct (principal); I21.4 Non-ST elevation (NSTEMI) myocardial infarction; G92 Toxic encephalopathy; C78.00 Secondary malignant neoplasm of unspecified lung; C20 Malignant neoplasm of rectum; N13.30 Unspecified hydronephrosis; N17.9 Acute kidney failure, unspecified; E11.22 Type 2 diabetes mellitus with diabetic chronic kidney disease; N18.3 Chronic kidney disease, stage 3 (moderate); I12.9 Hypertensive chronic kidney disease with stage 1 through stage 4 chronic kidney disease, or unspecified chronic kidney disease; E11.65 Type 2 diabetes mellitus with hyperglycemia; E83.39 Other disorders of phosphorus metabolism; E83.52 Hypercalcemia; D63.0 Anemia in neoplastic disease; K80.20 Calculus of gallbladder without cholecystitis without obstruction; N13.9 Obstructive and reflux uropathy, unspecified; E83.42 Hypomagnesemia; F32.9 Major depressive disorder, single episode, unspecified; F94.0 Selective mutism; D50.9 Iron deficiency anemia, unspecified; E78.5 Hyperlipidemia, unspecified; Z79.4 Long term (current) use of insulin

== ENCOUNTER 2017-03-17 11:30 | Inpatient (IN) | payer MEDICAID, OTHER ==
--- NOTE | 2017-03-17 11:45 | ED PDOC ---
Arrival/HPI - General Chief Complaint: GI Problem Time Seen by Provider: 03/17/17 11:32 Historian: Patient, Parent - History of Present Illness Narrative History of Present Illness (Text): 03/17/17 11:42 Recently diagnosed with stage IV colorectal cancer with metastases to liver and bilateral lung. Patient was to begin radiation therapy today. She was unable to make it secondary to severe weakness along with nausea and vomiting which began over the last 2 days. No fever. She does have some abdominal discomfort. She does have a POLST and does not want intubation or artificial feeding. She is tachycardic lethargic and uncomfortable. She is unable to give an accurate history. History is obtained from the daughter who accompanies her. Denies fever. No diarrhea. No chest pain or dyspnea. Time/Duration: Prior to Arrival Symptom Onset: Gradual Symptom Course: Worsening Severity Level: Severe Activities at Onset: Rest Past Medical History - Provider Review Nursing Documentation Reviewed: Yes - Infectious Disease Hx of Infectious Diseases: None - Reproductive Menopause: Yes Currently : No - Cardiac Hx Cardiac Disorders: Yes Hx Hypertension: Yes - Endocrine/Metabolic Hx Diabetes Mellitus Type 2: Yes - Musculoskeletal/Rheumatological Hx Falls: No - Gastrointestinal Other/Comment: colorectal ca , pelvic mass - Psychiatric Hx Substance Use: No (unobtainable) - Anesthesia Hx Anesthesia: No Family/Social History - Physician Review Nursing Documentation Reviewed: Yes Family/Social History: Unknown Family HX Smoking Status: Unknown If Ever Smoked Hx Alcohol Use: No (unobtainable) Hx Substance Use: No (unobtainable) Allergies/Home Meds Allergies/Adverse Reactions: Allergies No Known Allergies Allergy (Verified 03/17/17 11:39) Review of Systems - Review of Systems Systems not reviewed;Unavailable: Altered Mental Status Physical Exam Vital Signs Reviewed: Yes Vital Signs Temp Pulse Resp BP Pulse Ox 03/17/17 11:34 98.1 F 127 H 26 H 160/86 H 97 Temperature: Afebrile Blood Pressure: Hypertensive Pulse: Tachycardic Respiratory Rate: Normal Appearance: Positive for: Well-Appearing, Non-Toxic, Uncomfortable Pain Distress: Moderate Mental Status: Positive for: Lethargic (lethargic but arousable) - Systems Exam Head: Present: Atraumatic, Normocephalic Pupils: Present: PERRL Extroacular Muscles: Present: EOMI Conjunctiva: Present: Normal Mouth: Present: Dry. No: Normal Teeth (poor dentition throughout) Pharnyx: No: ERYTHEMA, EXUDATE, TONSILS ENLARGED Neck: Present: Normal Range of Motion Respiratory/Chest: Present: Clear to Auscultation, Good Air Exchange. No: Respiratory Distress, Accessory Muscle Use Cardiovascular: Present: Regular Rate and Rhythm, Normal S1, S2, Tachycardic. No: Murmurs Abdomen: Present: Tenderness (mild suprapubic tenderness), Normal Bowel Sounds. No: Distention, Peritoneal Signs, Rebound, Guarding Back: Present: Normal Inspection Upper Extremity: Present: Normal Inspection. No: Cyanosis, Edema Lower Extremity: Present: Normal Inspection. No: Edema Neurological: Present: GCS=15, CN II-XII Intact, Speech Normal, Motor Func Grossly Intact Skin: Present: Warm, Dry, Normal Color. No: Rashes Medical Decision Making ED Course and Treatment: 03/17/17 11:45 EKG shows sinus tachycardia rate approximately 130 with poor R-wave progression and no acute ST or T-wave changes - Lab Interpretations Lab Results: 03/17/17 11:45 03/17/17 11:45 Lab Results 03/17/17 11:45: Sodium 132, Potassium 4.7, Chloride 95 L, Carbon Dioxide 21, Anion Gap 20, BUN 14, Creatinine 1.2, Est GFR ( Amer) 55, Est GFR (Non- Af Amer) 45, Random Glucose 389 H* D, Calcium 10.9 H, Total Bilirubin 0.7, AST 99 H, ALT 48, Alkaline Phosphatase 824 H D, Total Protein 7.0, Albumin 3.2, Globulin 3.8, Albumin/Globulin Ratio 0.9 L, Lipase 547 H 03/17/17 11:45: WBC 16.7 H, RBC 3.92, Hgb 9.3 L, Hct 29.5 L, MCV 75.3 L, MCH 23.7 L, MCHC 31.5, RDW 20.3 H, Plt Count 388, MPV 9.3, Gran % 86.6 H, Lymph % ( Auto) 6.1 L, [place] % (Auto) 6.9 H, Eos % (Auto) 0.3 L, Baso % (Auto) 0.1, Gran # 14.47 H, Lymph # 1.0 L, [place] # 1.2 H, Eos # 0.1, Baso # 0.02 I have reviewed the lab results: Yes - EKG Interpretation Interpreted by ED Physician: Yes Type: 12 lead EKG - Medication Orders Current Medication Orders: Sodium Chloride (Sodium Chloride 0.9%) 1,000 mls @ 1,000 mls/hr IV .Q1H STA Stop: 03/17/17 12:46 Last Admin: 03/17/17 11:46 Dose: 1,000 mls/hr eMAR Start Stop Document 03/17/17 11:46 YP (Rec: 03/17/17 12:20 YP [id number]) Intravenous Solution Start Date 03/17/17 Start Time 11:46 End Date 03/17/17 End time 12:46 Total Infusion Time 60 Discontinued Medications Morphine Sulfate (Morphine) 4 mg IVP STAT STA Stop: 03/17/17 11:48 Last Admin: 03/17/17 12:20 Dose: 4 mg MAR Pain Assessment Document 03/17/17 12:20 YP (Rec: 03/17/17 12:20 YP [id number]) Pain Reassessment Is this a pain reassessment? Yes Sleep Is patient sleeping during reassessment? No Presence of Pain Presence of Pain Yes IVP Administration Document 03/17/17 12:20 YP (Rec: 03/17/17 12:20 YP [id number]) Charges for Administration # of IVP Administrations 1 Ondansetron HCl (Zofran Inj) 4 mg IVP STAT STA Stop: 03/17/17 11:48 Last Admin: 03/17/17 12:20 Dose: 4 mg IVP Administration Document 03/17/17 12:20 YP (Rec: 03/17/17 12:20 YP [id number]) Charges for Administration # of IVP Administrations 1 Disposition/Present on Arrival - Present on Arrival Any Indicators Present on Arrival: No History of DVT/PE: No History of Uncontrolled Diabetes: Yes Urinary Catheter: No History of Decub. Ulcer: No History Surgical Site Infection Following: None - Disposition Have Diagnosis and Disposition been Completed?: Yes Diagnosis: Metastatic colon cancer in female, Tachycardia, Hyperglycemia Disposition: HOME/ ROUTINE Disposition Time: 12:40 Patient Plan: Admission Condition: SERIOUS Referrals: [facility] Dangelo Donahue, [Primary Care Provider] - Follow up with primary Forms: [place] ([place])
[2017-03-17] MEDS ORDERED: Sodium Chloride 0.9% 1,000 ML IV STA (11:47)
[2017-03-17] MEDS ORDERED: Morphine 4 mg/ml ISec IVP STA (11:47)
[2017-03-17 12:14] LABS: BASO # 0.02 K/mm3 (0.0-2.0); BASO % 0.1 % (0.0-3.0); EOS # 0.1 (0.0-0.7); EOS % 0.3 % (1.5-5.0); GRAN # 14.47 (1.4-6.5); GRAN % 86.6 % (50.0-68.0); HEMATOCRIT 29.5 % (36.0-48.0); LYMPH % 6.1 % (22.0-35.0); MEAN CELL VOLUME 75.3 fl (80.0-105.0); MEAN CORPUSCULAR HEMOGLOBIN 23.7 pg (25.0-35.0); MEAN CORPUSCULAR HGB CONC 31.5 g/dl (31.0-37.0); MEAN PLATELET VOLUME 9.3 fl (7.0-11.0); MONO # 1.2 (0.1-0.6); MONO % 6.9 % (1.0-6.0); RED CELL DISTRIBUTION WIDTH 20.3 % (11.5-14.5); WHITE BLOOD COUNT 16.7 10^3/ul (4.5-11.0)
[2017-03-17 12:32] LABS: ALB/GLOB RATIO 0.9 (1.1-1.8); BILIRUBIN,TOTAL 0.7 mg/dL (0.2-1.3); CALCIUM 10.9 mg/dL (8.4-10.5); POTASSIUM 4.7 mmol/L (3.6-5.0)
[2017-03-17] MEDS ORDERED: Sodium Chloride 0.9% 1,000 ML IV SCH (14:15)
[2017-03-17] MEDS: Sodium Chloride 0.9% 1,000 ML IV SCH (14:21)
[2017-03-17] MEDS ORDERED: Morphine 4 mg/ml ISec IVP PRN (14:36)
[2017-03-17] MEDS ORDERED: Enoxaparin 40 mg Syringe SC SCH (14:45)
[2017-03-17] MEDS: cefTRIAXone 1 gm 1 GM/100 ML BAG IVPB SCH (15:50)
--- NOTE | 2017-03-17 16:00 | CP.PCM.HP ---
Addendum entered and electronically signed by Jake Apodaca DO 06:49: HPI: Presents with nausea and vomiting with abdominal pain of one day duration. Patient was sent here from her radiation oncologist, Dr. Davalos. Patient was supposed to start her radio tx on 03/17 (day of admission), but began having second thoughts and started getting nauseas and having bouts of emesis. Patient did not have any witnessed episodes of emesis in the ER. Of note, patient's daughter states that her mother has become altered, just as she had during her last admission. Pt was recently diagnosed with a gynecological cancer and was treated here at [facility] in february for altered mental status, which was found to be 2/ 2 hypercalcemia. Phys Exam: General: AAO X 2 (not oriented to time) HEENT: Mucous membranes dry Extremities: Dry Original Note: <Jake Apodaca - Last Filed: 03/17/17 16:03> History of Present Illness - History of Present Illness History of Present Illness: H/P for Dr. Salguero - [place] , PGY-1 CC: Abdominal pain with n/v HPI: 66 F with PMHx of Cervical CA Stage IV (Mets to liver and lungs), HTN, and DM. Pt denies f/ch/cp/sob/n/v/d/dysuria/frequency/urgency/hematuria/hematochezia/ hematemesis PSHx: Pt denies PMHx: HTN, DM, Cervical CA Stage IV All: NKDA SocHx: Pt denies EtOH, Illicits, Tobacco Hosp: 02/22-02/28 for AMS FamHx: HTN Meds: See MAR ROS: Const'l: pt denies fever, chills, generalized weakness ENT: pt denies dysphagia, otalgia, hearing deficit, rhinorrhea Eyes: pt denies sudden loss of vision, diplopia, blurred vision MSK: pt denies muscle stiffness, joint pain, extremity cramping Cardio: pt denies sob, heart murmur, cp Pulm: pt denies cough, hemoptysis, wheeze GI: pt denies loss of appetite, abdominal pain, constipation, melena, n/v/d : pt denies burning on urination, urinary frequency, hematuria, urinary urgency Neuro: pt denies paresis, paresthesia, dizziness, stoddard, numbness, tingling Derm: pt denies skin changes, lesions, nail changes Endo: pt denies intolerance to heat/cold, diaphoresis, night sweats, polydipsia Psych: pt denies anxiety, depression, mood changes Present on Admission - Present on Admission Any Indicators Present on Admission: No Past Patient History - Infectious Disease Hx of Infectious Diseases: None - Past Social History Smoking Status: Unknown If Ever Smoked - CARDIAC Hx Cardiac Disorders: Yes Hx Hypertension: Yes - ENDOCRINE/METABOLIC Hx Diabetes Mellitus Type 2: Yes - MUSCULOSKELETAL/RHEUMATOLOGICAL Hx Falls: No - GASTROINTESTINAL Other/Comment: colorectal ca , pelvic mass - PSYCHIATRIC Hx Substance Use: No (unobtainable) - SURGICAL HISTORY Hx Surgeries: No - ANESTHESIA Hx Anesthesia: No Meds Allergies/Adverse Reactions: Allergies Allergy/AdvReac Type Severity Reaction Status Date / Time No Known Allergies Allergy Verified 03/17/17 15:44 Physical Exam - Additional Findings Additional findings: Phys Exam: VS as below Const'l: a&o x 4, nad Head/Neck: neck supple, no jvd, trachea midline, carotid midline, no cervical /head mass Eyes: bere, nonicteric sclera, eom intact ENT: auditory acuity grossly intact, throat not congested, no nasal deformity Cardio: rrr, no m/r/g, no carotid bruit, nml s1, s2 Pulm: no accessory muscle use, equal nml breath sounds bilaterally, ctab Abd: s/nt/nd, nbs x 4 q, no palpable masses Derm: no rashes, no ulcers, no lesions Extr: no edema, no cyanosis, no calf tenderness, no lesions, no varicosities Neuro: cn II-XII grossly intact, ue and le 5/5 muscle strength bilaterally, no los ue, le bilaterally and core Results - Vital Signs Recent Vital Signs: Last Vital Signs Temp 98.1 F 03/17/17 11:34 Pulse 115 H 03/17/17 14:07 Resp 25 H 03/17/17 14:07 BP 136/69 03/17/17 14:07 Pulse Ox 98 03/17/17 14:07 - Labs Result Diagrams: 03/17/17 11:45 03/17/17 11:45 Assessment & Plan - Assessment and Plan (Free Text) Assessment: A/P 66 year old female with PMHx of HLD and IDDM presented to the ED with AMS and lethargy. CT Head and MRI Brain negative. Multiple METS, Hypercalcemia. Pt fully AAOX4 now. AMS likely 2/2 hypercalcemia - Ca: 10.8 on admission - IV fluids NS @200 - Consider Aredia - Dr. Jarvis on c/s Gynecological CA with Metastasis to Liver and Lungs - CT-Guided Liver Bx last admission: SCC, poorly differentiated - Heme/Onc C/s: Dr. Jarvis Leukocytosis, likely 2/2 Neupogen - No acute intervention Hyperglycemia - ISS sliding scale medium, with accuchecks Urinary Symptoms - UA, U Cx - Rocephin one dose Anemia - Hgb stabilizing, but lower than last admission - Ferritin wnl, TIBC low, Iron low - Likely ACD Trasaminitis -likely secondary to liver mets - No acute intervention Hypercalcemia - Dr. Jarvis on c/s - Consider Aredia GI/DVT prophylaxis Protonix/Heparin <RangasaSean hammondantha - Last Filed: 03/18/17 18:13> Results - Vital Signs Recent Vital Signs: Last Vital Signs Temp 98.8 F 03/18/17 07:58 Pulse 122 H 03/18/17 07:58 Resp 20 03/18/17 07:58 BP 117/55 L 03/18/17 07:58 Pulse Ox 97 03/18/17 07:58 - Labs Result Diagrams: 03/18/17 09:00 03/18/17 09:00 Labs: Laboratory Results - last 24 hr 03/17/17 03/18/17 03/18/17 21:35 07:13 09:00 WBC 14.6 H RBC 3.53 Hgb 8.3 L Hct 26.7 L MCV 75.6 L MCH 23.5 L MCHC 31.1 RDW 20.4 H Plt Count 278 MPV 8.9 Gran % 83.7 H Lymph % (Auto) 7.[address] [place] % (Auto) 7.7 H Eos % (Auto) 1.0 L Baso % (Auto) 0.2 Gran # 12.22 H Lymph # 1.[address] [place] # 1.1 H Eos # 0.2 Baso # 0.03 Sodium Potassium Chloride Carbon Dioxide Anion Gap BUN Creatinine Est GFR ( Amer) Est GFR (Non-Af Amer) POC Glucose (mg/dL) 193 H 227 H Random Glucose Calcium Total Bilirubin AST ALT Alkaline Phosphatase Total Protein Albumin Globulin Albumin/Globulin Ratio 03/18/17 03/18/17 03/18/17 09:00 11:02 15:54 WBC RBC Hgb Hct MCV MCH MCHC RDW Plt Count MPV Gran % Lymph % (Auto) [place] % (Auto) Eos % (Auto) Baso % (Auto) Gran # Lymph # [place] # Eos # Baso # Sodium 137 Potassium 4.7 Chloride 104 Carbon Dioxide 23 Anion Gap 15 BUN 13 Creatinine 1.1 Est GFR ( Amer) > 60 Est GFR (Non-Af Amer) 50 POC Glucose (mg/dL) 249 H 203 H Random Glucose 215 H Calcium 10.3 Total Bilirubin 0.6 AST 124 H D ALT 57 H Alkaline Phosphatase 673 H Total Protein 6.3 Albumin 2.9 L Globulin 3.5 Albumin/Globulin Ratio 0.8 L Attending/Attestation - Attestation I have personally seen and examined this patient.: Yes I have fully participated in the care of the patient.: Yes I have reviewed all pertinent clinical information: Yes Notes (Text): 03/18/17 18:09 attending note; Patient seen and examined with resident in ER. Patient's daughter by the bedside. 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 The patient was seen in radiation oncology department this morning. Did not start radiation yet. Patient was supposed to get palliative radiation today by Dr. Davalos. Since the patient was complaining of nausea, vomiting the patient was referred for admission. started on IV fluids. Diet as tolerated. Pain management with morphine. Hypercalcemia; continue IV fluids. Will follow up with oncology for further plan. Hospice care/palliative care was discussed with patient's daughter who is the power of title attorney in detail during last admission. Patient is DNI DNR. Prognosis is poor. palliative care consult requested. occupational health and safety manager/social work manager consult requested. Will continue to offer supportive care To the patient and family. 03/18/17 18:13
[2017-03-17] MEDS ORDERED: Influenza Vaccine 60 mcg/0.5 mL SYR (4YR UP) IM ONE (17:26)
[2017-03-17] MEDS ORDERED: Pneumococcal 23-Valent Vaccine IM ONE (17:26)
[2017-03-17 17:28] VITALS: BMI 23.9
[2017-03-17] MEDS: Insulin Reg-MEDIUM-Coverage SC SCH ×2 (17:54→22:02)
--- NOTE | 2017-03-18 | CARD ---
APPROVED REPORT EKG Measurement Heart [id number] <Conclusion> Sinus tachycardia Septal infarct, age undetermined Abnormal ECG
[2017-03-18] MEDS: Sodium Chloride 0.9% 1,000 ML IV SCH ×3 (00:15→21:34)
[2017-03-18] MEDS: Pantoprazole 40 mg EC Tab PO SCH (06:14)
[2017-03-18] MEDS: Insulin Reg-MEDIUM-Coverage SC SCH ×4 (09:03→22:31)
[2017-03-18 09:15] LABS: BASO # 0.03 K/mm3 (0.0-2.0); BASO % 0.2 % (0.0-3.0); EOS # 0.2 (0.0-0.7); GRAN # 12.22 (1.4-6.5); GRAN % 83.7 % (50.0-68.0); HEMATOCRIT 26.7 % (36.0-48.0); LYMPH # 1.1 (1.2-3.4); LYMPH % 7.4 % (22.0-35.0); MEAN CELL VOLUME 75.6 fl (80.0-105.0); MEAN CORPUSCULAR HEMOGLOBIN 23.5 pg (25.0-35.0); MEAN CORPUSCULAR HGB CONC 31.1 g/dl (31.0-37.0); MEAN PLATELET VOLUME 8.9 fl (7.0-11.0); MONO # 1.1 (0.1-0.6); MONO % 7.7 % (1.0-6.0); RED CELL DISTRIBUTION WIDTH 20.4 % (11.5-14.5); WHITE BLOOD COUNT 14.6 10^3/ul (4.5-11.0)
[2017-03-18 09:35] LABS: ALB/GLOB RATIO 0.8 (1.1-1.8); ALKALINE PHOSPHATASE 673 U/L (38-126); ALT/SGPT 57 U/L (7-56); AST/SGOT 124 U/L (14-36); BILIRUBIN,TOTAL 0.6 mg/dL (0.2-1.3); BLOOD UREA NITROGEN 13 mg/dL (7-21); CALCIUM 10.3 mg/dL (8.4-10.5); CARBON DIOXIDE 23 mmol/L (21-33); CHLORIDE 104 mmol/L (98-107); GFR AFRICAN-AMERICAN > 60; GLUCOSE,RANDOM 215 mg/dL (70-110); POTASSIUM 4.7 mmol/L (3.6-5.0); SODIUM 137 mmol/L (132-148); TOTAL PROTEIN 6.3 g/dL (5.8-8.3)
[2017-03-18] MEDS: Enoxaparin 40 mg Syringe SC SCH (10:17)
[2017-03-18] MEDS: cefTRIAXone 1 gm 1 GM/100 ML BAG IVPB SCH (10:18)
--- NOTE | 2017-03-18 10:55 | CP.PCM.PN ---
Subjective - Date & Time of Evaluation Date of Evaluation: 03/18/17 Time of Evaluation: 08:00 - Subjective Subjective: Ms Golden is known to our department. We saw her in consultation for her stage IV cervical cancer last week. She was supposed to start palliative radiation therapy yesterday however she stated that she was having nausea and vomiting over the weekend and wanted to hold off on treatment. We sent her to the ED We saw her again today. She is feeling better. She will not commit whether she wants to proceed with palliative radiation or no treatment. We spoke with her daughter who states that she may be able to convince her mom to try it. As of now we are awaiting direction from the family. T Objective - Vital Signs/Intake and Output Vital Signs (last 24 hours): Temp Pulse Resp BP Pulse Ox 98.8 F 122 H 20 117/55 L 97 03/18/17 07:58 03/18/17 07:58 03/18/17 07:58 03/18/17 07:58 03/18/17 07:58 Intake and Output: 03/18/17 03/18/17 06:59 18:59 Intake Total 160 0 Balance 160 0 - Medications Medications: Current Medications Enoxaparin Sodium (Lovenox) 40 mg SC DAILY JUANA PRN Reason: Protocol Last Admin: 03/18/17 10:17 Dose: 40 mg Sodium Chloride (Sodium Chloride 0.9%) 1,000 mls @ 200 mls/hr IV .Q5H JUANA Last Admin: 03/18/17 07:15 Dose: 200 mls/hr Ceftriaxone Sodium (Rocephin 1 Gram Ivpb (D5w)) 1 gm in 100 mls @ 100 mls/hr IVPB DAILY JUANA PRN Reason: Protocol Last Admin: 03/18/17 10:18 Dose: 100 mls/hr Pamidronate Disodium 60 mg/ (Sodium Chloride) 510 mls @ 127.5 mls/hr IVPB ONCE ONE Stop: 03/18/17 14:08 Insulin Human Regular (Humulin R Med) 0 units SC ACHS JUANA PRN Reason: Protocol Last Admin: 03/18/17 09:03 Dose: 3 units Morphine Sulfate (Morphine) 4 mg IVP Q4 PRN PRN Reason: Pain, severe (8-10) Ondansetron HCl (Zofran Inj) 4 mg IVP STAT PRN PRN Reason: nausea Pantoprazole Sodium (Protonix Ec Tab) 40 mg PO 0600 [facility] Last Admin: 03/18/17 06:14 Dose: 40 mg - Labs Labs: 03/18/17 09:00 03/18/17 09:00
--- NOTE | 2017-03-18 12:13 | CP.PCM.PN ---
Subjective - Date & Time of Evaluation Date of Evaluation: 03/18/17 Time of Evaluation: 11:55 - Subjective Subjective: Ms Golden's daughter called to say that she and her mom have opted not to get any palliative radiation. They will be pursuing comfort care only. Objective - Vital Signs/Intake and Output Vital Signs (last 24 hours): Temp Pulse Resp BP Pulse Ox 98.8 F 122 H 20 117/55 L 97 03/18/17 07:58 03/18/17 07:58 03/18/17 07:58 03/18/17 07:58 03/18/17 07:58 Intake and Output: 03/18/17 03/18/17 06:59 18:59 Intake Total 160 0 Balance 160 0 - Medications Medications: Current Medications Enoxaparin Sodium (Lovenox) 40 mg SC DAILY JUANA PRN Reason: Protocol Last Admin: 03/18/17 10:17 Dose: 40 mg Sodium Chloride (Sodium Chloride 0.9%) 1,000 mls @ 200 mls/hr IV .Q5H [facility] Last Admin: 03/18/17 07:15 Dose: 200 mls/hr Ceftriaxone Sodium (Rocephin 1 Gram Ivpb (D5w)) 1 gm in 100 mls @ 100 mls/hr IVPB DAILY JUANA PRN Reason: Protocol Last Admin: 03/18/17 10:18 Dose: 100 mls/hr Pamidronate Disodium 60 mg/ (Sodium Chloride) 510 mls @ 127.5 mls/hr IVPB ONCE ONE Stop: 03/18/17 14:08 Last Admin: 03/18/17 10:57 Dose: 127.5 mls/hr Insulin Human Regular (Humulin R Med) 0 units SC ACHS JUANA PRN Reason: Protocol Last Admin: 03/18/17 09:03 Dose: 3 units Morphine Sulfate (Morphine) 4 mg IVP Q4 PRN PRN Reason: Pain, severe (8-10) Ondansetron HCl (Zofran Inj) 4 mg IVP STAT PRN PRN Reason: nausea Pantoprazole Sodium (Protonix Ec Tab) 40 mg PO 0600 [facility] Last Admin: 03/18/17 06:14 Dose: 40 mg - Labs Labs: 03/18/17 09:00 03/18/17 09:00
--- NOTE | 2017-03-18 13:13 | CP.PCM.CON ---
History of Present Illness - History of Present Illness History of Present Illness: Palliative consult requested by Dr Salguero Goals of care/hospice discussion 66 year old female with history of metastatic cervical cancer who presented with complaints nausea, vomiting and altered mental status over the past few days. She denied headache, pain, constipation,diarrhea, or headache. Labs; leukocytosis,anemia, Calcium 10.9, elevated LFT's and lipase. PMHx: DM, stage IV cervical cancer metastasis to pelvic floor, liver and lungs, left hydronephrosis. Social History: Non smoker, no alcohol or drug use. Lives in sons home, daughter is acre taker. Family History: Unknown. Advance Care Planning: The patient has an Advanced Directive. She is DNR/DNI Review of Systems: As per HPI, 12 point review otherwise negate. Past Patient History - Infectious Disease Hx of Infectious Diseases: None - Past Social History Smoking Status: Never Smoked - CARDIAC Hx Cardiac Disorders: Yes (NSTEMI) Hx Hypercholesterolemia: Yes Hx Hypertension: Yes - PULMONARY Hx Respiratory Disorders: Yes (LUNG CA) - NEUROLOGICAL Hx Neurological Disorder: No - HEENT Hx HEENT Problems: No - RENAL Hx Chronic Kidney Disease: No - ENDOCRINE/METABOLIC Hx Endocrine Disorders: Yes Hx Diabetes Mellitus Type 2: Yes - HEMATOLOGICAL/ONCOLOGICAL Hx Blood Disorders: Yes Hx Cancer: Yes (COLON CA WITH METS TO LUNG,LIVER,BONE TO BEGIN RADIATION ) Hx Metastesis: Yes - INTEGUMENTARY Hx Dermatological Problems: No - MUSCULOSKELETAL/RHEUMATOLOGICAL Hx Musculoskeletal Disorders: Yes (BONE CA) Hx Falls: Yes Hx Unsteady Gait: Yes (CANE) - GASTROINTESTINAL Hx Gastrointestinal Disorders: Yes (CONSTIPATED) Other/Comment: colorectal ca , pelvic mass - GENITOURINARY/GYNECOLOGICAL Hx Genitourinary Disorders: No - PSYCHIATRIC Hx Psychophysiologic Disorder: No Hx Substance Use: No - SURGICAL HISTORY Hx Surgeries: Yes (LEFT BREAST REMOVED ABSCESS) - ANESTHESIA Hx Anesthesia: No Meds Allergies/Adverse Reactions: Allergies Allergy/AdvReac Type Severity Reaction Status Date / Time No Known Allergies Allergy Verified 03/17/17 15:44 - Medications Medications: Current Medications Enoxaparin Sodium (Lovenox) 40 mg SC DAILY JUANA PRN Reason: Protocol Last Admin: 03/18/17 10:17 Dose: 40 mg Sodium Chloride (Sodium Chloride 0.9%) 1,000 mls @ 200 mls/hr IV .Q5H [facility] Last Admin: 03/18/17 07:15 Dose: 200 mls/hr Ceftriaxone Sodium (Rocephin 1 Gram Ivpb (D5w)) 1 gm in 100 mls @ 100 mls/hr IVPB DAILY JUANA PRN Reason: Protocol Last Admin: 03/18/17 10:18 Dose: 100 mls/hr Pamidronate Disodium 60 mg/ (Sodium Chloride) 510 mls @ 127.5 mls/hr IVPB ONCE ONE Stop: 03/18/17 14:08 Last Admin: 03/18/17 10:57 Dose: 127.5 mls/hr Insulin Human Regular (Humulin R Med) 0 units SC ACHS JUANA PRN Reason: Protocol Last Admin: 03/18/17 09:03 Dose: 3 units Morphine Sulfate (Morphine) 4 mg IVP Q4 PRN PRN Reason: Pain, severe (8-10) Ondansetron HCl (Zofran Inj) 4 mg IVP STAT PRN PRN Reason: nausea Pantoprazole Sodium (Protonix Ec Tab) 40 mg PO 0600 [facility] Last Admin: 03/18/17 06:14 Dose: 40 mg Physical Exam - Constitutional Appears: Cachectic, Chronically Ill - Head Exam Head Exam: NORMAL INSPECTION - Eye Exam Eye Exam: Normal appearance, PERRL - ENT Exam ENT Exam: Mucous Membranes Moist, Normal Oropharynx - Neck Exam Neck exam: Positive for: Normal Inspection - Respiratory Exam Respiratory Exam: Decreased Breath Sounds, NORMAL BREATHING PATTERN - Cardiovascular Exam Cardiovascular Exam: REGULAR RHYTHM, +S1, +S2 - GI/Abdominal Exam GI & Abdominal Exam: Diminished Bowel Sounds, Distended Additional comments: diffuse tenderness lower abdomen - Extremities Exam Extremities exam: Positive for: normal inspection, pedal pulses present - Neurological Exam Neurological exam: Alert, Oriented x3 - Skin Skin Exam: Dry, Warm - Additional Findings Additional findings: Palliative performance scale rating 50% Results - Vital Signs Recent Vital Signs: Last Vital Signs Temp 98.8 F 03/18/17 07:58 Pulse 122 H 03/18/17 07:58 Resp 20 03/18/17 07:58 BP 117/55 L 03/18/17 07:58 Pulse Ox 97 03/18/17 07:58 - Labs Result Diagrams: 03/18/17 09:00 03/18/17 09:00 Labs: Laboratory Results - last 24 hr 12/11/17 12/11/17 12/12/17 17:06 21:35 07:13 WBC RBC Hgb Hct MCV MCH MCHC RDW Plt Count MPV Gran % Lymph % (Auto) [place] % (Auto) Eos % (Auto) Baso % (Auto) Gran # Lymph # [place] # Eos # Baso # Sodium Potassium Chloride Carbon Dioxide Anion Gap BUN Creatinine Est GFR ( Amer) Est GFR (Non-Af Amer) POC Glucose (mg/dL) 239 H 193 H 227 H Random Glucose Calcium Total Bilirubin AST ALT Alkaline Phosphatase Total Protein Albumin Globulin Albumin/Globulin Ratio 03/18/17 03/18/17 03/18/17 09:00 09:00 11:02 WBC 14.6 H RBC 3.53 Hgb 8.3 L Hct 26.7 L MCV 75.6 L MCH 23.5 L MCHC 31.1 RDW 20.4 H Plt Count 278 MPV 8.9 Gran % 83.7 H Lymph % (Auto) 7.4 L [place] % (Auto) 7.7 H Eos % (Auto) 1.0 L Baso % (Auto) 0.2 Gran # 12.22 H Lymph # 1.1 L [place] # 1.1 H Eos # 0.2 Baso # 0.03 Sodium 137 Potassium 4.7 Chloride 104 Carbon Dioxide 23 Anion Gap 15 BUN 13 Creatinine 1.1 Est GFR ( Amer) > 60 Est GFR (Non-Af Amer) 50 POC Glucose (mg/dL) 249 H Random Glucose 215 H Calcium 10.3 Total Bilirubin 0.6 AST 124 H D ALT 57 H Alkaline Phosphatase 673 H Total Protein 6.3 Albumin 2.9 L Globulin 3.5 Albumin/Globulin Ratio 0.8 L Assessment & Plan - Assessment and Plan (Free Text) Assessment: 66 year old female with history of metastatic cervical cancer and DM who is admitted with hypercalcemia,AMS, nausea, weakness,elevated LFT's, lipase and leukocytosis. Patient being treated with Aredia for hypercalcemia. Would also add Miralax to prevent constipation. The patient is alert,oriented but withdrawn. She denies pain. Daughter states that patients appetite is poor and that she needs assistance with most ADL's. Branden HOWELL and I spoke with patient and daughter about goals of care. Patient does not want any treatment. She is refusing palliative radiation. Hospice option had been discussed with family during last admission.Hospice discussion revisited today. Family is agreeable to hospice care. Family asking for placement in hospice facility. Ms. Franklin working with family to find a hospice facility who will accept patient. Psychosocial support given.. Time spent in goals of care and end of life discussion with patient and daughter , 30 minutes Plan: Miralax daily DNR/DNI Hospice evaluation. Palliative support
[2017-03-18] MEDS: POLYETHYLENE GLYCOL 3350 17 GM/Dose PACKET PO SCH (15:35)
--- NOTE | 2017-03-18 17:01 | CP.PCM.PN ---
<Jake Apodaca Lucien - Last Filed: 03/18/17 16:58> Subjective - Date & Time of Evaluation Date of Evaluation: 03/18/17 Time of Evaluation: 16:58 - Subjective Subjective: Medicine progress note - [facility] DO PGY - 1, Pager [phone] Pt seen and examined bedside. Patient states that she is willing to get palliative radiation oncology treatment. She states that right now she is not feeling any nausea or vomiting. Pt does not have any complaints at this time including pain. Objective - Vital Signs/Intake and Output Vital Signs (last 24 hours): Temp Pulse Resp BP Pulse Ox 98.8 F 122 H 20 117/55 L 97 03/18/17 07:58 03/18/17 07:58 03/18/17 07:58 03/18/17 07:58 03/18/17 07:58 Intake and Output: 03/18/17 03/18/17 06:59 18:59 Intake Total 160 600 Balance 160 600 - Medications Medications: Current Medications Enoxaparin Sodium (Lovenox) 40 mg SC DAILY [facility] PRN Reason: Protocol Last Admin: 03/18/17 10:17 Dose: 40 mg Sodium Chloride (Sodium Chloride 0.9%) 1,000 mls @ 200 mls/hr IV .Q5H [facility] Last Admin: 03/18/17 07:15 Dose: 200 mls/hr Ceftriaxone Sodium (Rocephin 1 Gram Ivpb (D5w)) 1 gm in 100 mls @ 100 mls/hr IVPB DAILY [facility] PRN Reason: Protocol Last Admin: 03/18/17 10:18 Dose: 100 mls/hr Insulin Human Regular (Humulin R Med) 0 units SC ACHS [facility] PRN Reason: Protocol Last Admin: 03/18/17 12:57 Dose: 3 units Morphine Sulfate (Morphine) 4 mg IVP Q4 PRN PRN Reason: Pain, severe (8-10) Ondansetron HCl (Zofran Inj) 4 mg IVP STAT PRN PRN Reason: nausea Pantoprazole Sodium (Protonix Ec Tab) 40 mg PO 0600 [facility] Last Admin: 03/18/17 06:14 Dose: 40 mg Polyethylene Glycol (Miralax) 17 gm PO DAILY [facility] Last Admin: 03/18/17 15:35 Dose: 17 gm - Labs Labs: 03/18/17 09:00 03/18/17 09:00 - Additional Findings Additional findings: Phys Exam: VS as below Const'l: a&o x 4, no acute distress Head/Neck: neck supple, no jvd, trachea midline, carotid midline, no cervical /head mass Eyes: bere, nonicteric sclera, eom intact ENT: auditory acuity grossly intact, throat not congested, no nasal deformity Cardio: regular rate rhythm, no murmurs/rubs/gallops, no carotid bruit, normal s1, s2 Pulm: no accessory muscle use, equal normal breath sounds bilaterally, clear to auscultation bilaterally Abd: soft/non-tender/non-distended, normal bowel sounds x 4 quadrants, no palpable masses Derm: no rashes, no ulcers, no lesions Extr: no edema, no cyanosis, no calf tenderness, no lesions, no varicosities Neuro: cn II-XII grossly intact, upper extremity and lower extremity 5/5 muscle strength bilaterally, no loss of sensation upper extremity, lower extremity bilaterally and core Assessment and Plan - Assessment and Plan (Free Text) Assessment: A/P 66 year old female with PMHx of HLD and IDDM presented to the ED with AMS and lethargy. CT Head and MRI Brain negative. Multiple METS, Hypercalcemia. Pt fully AAOX4 now. Altered Mental Status likely 2/2 hypercalcemia - Ca: 10.8 on admission - IV fluids NS @200 - Aredia 60 given Cervical Cancer with Metastasis to Liver and Lungs - CT-Guided Liver Bx last admission: SCC, poorly differentiated - Heme/Onc: Dr. Jarivs *Patient agreed to palliative radiation oncology Leukocytosis, likely 2/2 Neupogen - No acute intervention Hyperglycemia - ISS sliding scale medium, with accuchecks Urinary Symptoms - UA, Urine Culture - Rocephin one dose Anemia - Hgb stabilizing, but lower than last admission - Ferritin wnl, TIBC low, Iron low - Likely ACD Trasaminitis -likely secondary to liver mets - No acute intervention Hypercalcemia - Dr. Jarvis on c/s - Aredia 60 given GI/DVT prophylaxis Protonix/Heparin <Rangasamy,Ajantha - Last Filed: 03/18/17 18:15> Objective - Vital Signs/Intake and Output Vital Signs (last 24 hours): Temp Pulse Resp BP Pulse Ox 98 F 116 H 20 125/62 98 03/18/17 16:00 03/18/17 16:00 03/18/17 16:00 03/18/17 16:00 03/18/17 16:00 Intake and Output: 03/18/17 03/18/17 06:59 18:59 Intake Total 160 600 Balance 160 600 - Medications Medications: Current Medications Enoxaparin Sodium (Lovenox) 40 mg SC DAILY [facility] PRN Reason: Protocol Last Admin: 03/18/17 10:17 Dose: 40 mg Sodium Chloride (Sodium Chloride 0.9%) 1,000 mls @ 200 mls/hr IV .Q5H [facility] Last Admin: 03/18/17 07:15 Dose: 200 mls/hr Ceftriaxone Sodium (Rocephin 1 Gram Ivpb (D5w)) 1 gm in 100 mls @ 100 mls/hr IVPB DAILY [facility] PRN Reason: Protocol Last Admin: 03/18/17 10:18 Dose: 100 mls/hr Insulin Human Regular (Humulin R Med) 0 units SC ACHS [facility] PRN Reason: Protocol Last Admin: 03/18/17 17:54 Dose: 3 units Morphine Sulfate (Morphine) 4 mg IVP Q4 PRN PRN Reason: Pain, severe (8-10) Ondansetron HCl (Zofran Inj) 4 mg IVP STAT PRN PRN Reason: nausea Pantoprazole Sodium (Protonix Ec Tab) 40 mg PO 0600 [facility] Last Admin: 03/18/17 06:14 Dose: 40 mg Polyethylene Glycol (Miralax) 17 gm PO DAILY [facility] Last Admin: 03/18/17 15:35 Dose: 17 gm - Labs Labs: 03/18/17 09:00 03/18/17 09:00 Attending/Attestation - Attestation I have personally seen and examined this patient.: Yes I have fully participated in the care of the patient.: Yes I have reviewed all pertinent clinical information, including history, physical exam and plan: Yes Notes (Text): 03/18/17 18:13 attending note; Patient seen and examined with resident.. 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 The patient was seen in radiation oncology department this morning. Did not start radiation yet. Patient was supposed to get palliative radiation today by Dr. Davalos. Since the patient was complaining of nausea, vomiting the patient was referred for admission. continue IV fluids. Pain management with morphine. Hypercalcemia;hypercalcemia is improving. Started on IV aredia. oncology evaluation with appreciated. No plan for chemotherapy. the patient was evaluated by radiation oncologist Dr. Davalos. Patient refused palliative radiation today. Patient is DNI DNR. Prognosis is poor. palliative care consult appreciated. plant senior manager/social group worker consult appreciated. Medicaid is pending. Family is willing for hospice care. Will continue to offer supportive care To the patient and family.
--- NOTE | 2017-03-18 19:12 | CP.PCM.HP ---
<Jake Apodaca - Last Filed: 03/18/17 19:08> History of Present Illness - History of Present Illness History of Present Illness: 66 year Female with Past medical history of Cervical CA Stage IV (Metastases to liver and lungs), hypertension and diabetes presents with nausea and vomiting with abdominal pain of one day duration. Patient was sent here from her radiation oncologist, Dr. Davalos. Patient was supposed to start her radiation oncology treatment on 03/17 (day of admission), but began having second thoughts and started getting nauseas and having bouts of emesis. Patient did not have any witnessed episodes of emesis in the ER. Of note, patient's daughter states that her mother has become altered, just as she had during her last admission. Pt was recently diagnosed with a gynecological cancer and was treated here at [facility] in february for altered mental status, which was found to be 2/ 2 hypercalcemia. Patient denies fevers, chills, chest pain, shortness of breath, frequency, urgency, and hematuria. ROS: 10 Point review of systems is negative except for HPI Past Surgical History: Patient denies Past Medical History: Hypertension, Diabetes, Cervical Cancer Stage IV Allergies NKDA Social History: Patient denies alcohol, Illicits, Tobacco Hospitalizations: 02/22-02/28 for Altered Mental Status Family History: Hypertension Medications: See MAR Heme/Onc: Dr. Jarvis Present on Admission - Present on Admission Any Indicators Present on Admission: No Past Patient History - Infectious Disease Hx of Infectious Diseases: None - Past Social History Smoking Status: Never Smoked - CARDIAC Hx Cardiac Disorders: Yes (NSTEMI) Hx Hypercholesterolemia: Yes Hx Hypertension: Yes - PULMONARY Hx Respiratory Disorders: Yes (LUNG CA) - NEUROLOGICAL Hx Neurological Disorder: No - HEENT Hx HEENT Problems: No - RENAL Hx Chronic Kidney Disease: No - ENDOCRINE/METABOLIC Hx Diabetes Mellitus Type 2: Yes - HEMATOLOGICAL/ONCOLOGICAL Hx Blood Disorders: Yes Hx Cancer: Yes (COLON CA WITH METS TO LUNG,LIVER,BONE TO BEGIN RADIATION ) Hx Metastesis: Yes - INTEGUMENTARY Hx Dermatological Problems: No - MUSCULOSKELETAL/RHEUMATOLOGICAL Hx Musculoskeletal Disorders: Yes (BONE CA) Hx Falls: Yes Hx Unsteady Gait: Yes (CANE) - GASTROINTESTINAL Hx Gastrointestinal Disorders: Yes (CONSTIPATED) Other/Comment: colorectal ca , pelvic mass - GENITOURINARY/GYNECOLOGICAL Hx Genitourinary Disorders: No - PSYCHIATRIC Hx Psychophysiologic Disorder: No Hx Substance Use: No - SURGICAL HISTORY Hx Surgeries: Yes (LEFT BREAST REMOVED ABSCESS) - ANESTHESIA Hx Anesthesia: No Meds Allergies/Adverse Reactions: Allergies Allergy/AdvReac Type Severity Reaction Status Date / Time No Known Allergies Allergy Verified 03/17/17 15:44 Physical Exam - Constitutional Appears: No Acute Distress, Unkempt, Chronically Ill - Head Exam Head Exam: ATRAUMATIC, NORMAL INSPECTION, NORMOCEPHALIC - Eye Exam Eye Exam: EOMI, Normal appearance, PERRL Pupil Exam: NORMAL ACCOMODATION, PERRL - ENT Exam ENT Exam: Mucous Membranes Moist, Normal Exam - Neck Exam Neck exam: Positive for: Normal Inspection - Respiratory Exam Respiratory Exam: Clear to Auscultation Bilateral, NORMAL BREATHING PATTERN - Cardiovascular Exam Cardiovascular Exam: REGULAR RHYTHM - GI/Abdominal Exam GI & Abdominal Exam: Normal Bowel Sounds, Soft. absent: Tenderness - Rectal Exam Rectal Exam: NORMAL INSPECTION - Extremities Exam Extremities exam: Positive for: full ROM, normal capillary refill, normal inspection. Negative for: calf tenderness - Back Exam Back exam: FULL ROM, NORMAL INSPECTION. absent: CVA tenderness (L), CVA tenderness (R) - Neurological Exam Neurological exam: Alert, CN II-XII Intact, Normal Gait, Oriented x3, Reflexes Normal - Psychiatric Exam Psychiatric exam: Normal Affect, Normal Mood - Skin Skin Exam: Dry, Intact, Normal Color, Warm Results - Vital Signs Recent Vital Signs: Last Vital Signs Temp 98 F 03/18/17 16:00 Pulse 116 H 03/18/17 16:00 Resp 20 03/18/17 16:00 BP 125/62 03/18/17 16:00 Pulse Ox 98 03/18/17 16:00 - Labs Result Diagrams: 03/18/17 09:00 03/18/17 09:00 Labs: Laboratory Results - last 24 hr 03/17/17 03/18/17 03/18/17 21:35 07:13 09:00 WBC 14.6 H RBC 3.53 Hgb 8.3 L Hct 26.7 L MCV 75.6 L MCH 23.5 L MCHC 31.1 RDW 20.4 H Plt Count 278 MPV 8.9 Gran % 83.7 H Lymph % (Auto) 7.4 L Price % (Auto) 7.7 H Eos % (Auto) 1.0 L Baso % (Auto) 0.2 Gran # 12.22 H Lymph # 1.1 L Price # 1.1 H Eos # 0.2 Baso # 0.03 Sodium Potassium Chloride Carbon Dioxide Anion Gap BUN Creatinine Est GFR ( Amer) Est GFR (Non-Af Amer) POC Glucose (mg/dL) 193 H 227 H Random Glucose Calcium Total Bilirubin AST ALT Alkaline Phosphatase Total Protein Albumin Globulin Albumin/Globulin Ratio 03/18/17 03/18/17 03/18/17 09:00 11:02 15:54 WBC RBC Hgb Hct MCV MCH MCHC RDW Plt Count MPV Gran % Lymph % (Auto) Price % (Auto) Eos % (Auto) Baso % (Auto) Gran # Lymph # Price # Eos # Baso # Sodium 137 Potassium 4.7 Chloride 104 Carbon Dioxide 23 Anion Gap 15 BUN 13 Creatinine 1.1 Est GFR ( Amer) > 60 Est GFR (Non-Af Amer) 50 POC Glucose (mg/dL) 249 H 203 H Random Glucose 215 H Calcium 10.3 Total Bilirubin 0.6 AST 124 H D ALT 57 H Alkaline Phosphatase 673 H Total Protein 6.3 Albumin 2.9 L Globulin 3.5 Albumin/Globulin Ratio 0.8 L Assessment & Plan - Assessment and Plan (Free Text) Assessment: A/P 66 year old female with past medical history of hyperlipidemia and insulin dependent diabetes presented to the ED with altered mental status and lethargy. CT Head and MRI Brain negative. Multiple metastases, Hypercalcemia. Pt fully awake alert and oriented X 4 now. Altered Mental Status likely 2/2 hypercalcemia - Ca: 10.8 on admission - IV fluids Normal Saline @200 - Consider Aredia - Dr. Jarvis on consult Cervical cancer with Metastasis to Liver and Lungs - CT-Guided Liver Biopsy last admission: Squamoous Cell Carcinoma, poorly differentiated - Heme/Onc consult: Dr. Jarvis Leukocytosis, likely 2/2 Neupogen - No acute intervention Hyperglycemia - ISS sliding scale medium, with accuchecks Urinary Symptoms - Urinalysis, Urine culture - Rocephin one dose Anemia - Hemoglobin stabilizing, but lower than last admission - Ferritin within normal limits, TIBC low, Iron low - Likely Anemia of Chronic Disease Trasaminitis -likely secondary to liver metastases - No acute intervention Hypercalcemia - Dr. Jarvis on consult - Consider Aredia GI/DVT prophylaxis Protonix/Heparin <Rangasamy,Ajantha - Last Filed: 03/19/17 13:16> Results - Vital Signs Recent Vital Signs: Last Vital Signs Temp 99.6 F 03/19/17 06:00 Pulse 127 H 03/19/17 06:00 Resp 20 03/19/17 06:00 BP 122/63 03/19/17 06:00 Pulse Ox 96 03/19/17 06:00 - Labs Result Diagrams: 03/19/17 05:40 03/19/17 05:40 Labs: Laboratory Results - last 24 hr 03/18/17 03/18/17 03/19/17 15:54 21:06 05:40 WBC 15.8 H RBC 3.28 L Hgb 7.9 L Hct 24.9 L MCV 75.9 L MCH 24.1 L MCHC 31.7 RDW 20.5 H Plt Count 275 MPV 8.9 Gran % 82.3 H Lymph % (Auto) 7.6 L Price % (Auto) 8.9 H Eos % (Auto) 1.0 L Baso % (Auto) 0.2 Gran # 13.01 H Lymph # 1.2 Price # 1.4 H Eos # 0.2 Baso # 0.03 Sodium Potassium Chloride Carbon Dioxide Anion Gap BUN Creatinine Est GFR ( Amer) Est GFR (Non-Af Amer) POC Glucose (mg/dL) 203 H 104 Random Glucose Calcium Total Bilirubin AST ALT Alkaline Phosphatase Total Protein Albumin Globulin Albumin/Globulin Ratio 03/19/17 03/19/17 03/19/17 05:40 07:32 11:21 WBC RBC Hgb Hct MCV MCH MCHC RDW Plt Count MPV Gran % Lymph % (Auto) Price % (Auto) Eos % (Auto) Baso % (Auto) Gran # Lymph # Price # Eos # Baso # Sodium 138 Potassium 4.4 Chloride 109 H Carbon Dioxide 20 L Anion Gap 14 BUN 12 Creatinine 1.0 Est GFR ( Amer) > 60 Est GFR (Non-Af Amer) 56 POC Glucose (mg/dL) 142 H 270 H Random Glucose 144 H Calcium 10.4 Total Bilirubin 0.7 AST 123 H ALT 51 Alkaline Phosphatase 644 H Total Protein 5.8 Albumin 2.5 L Globulin 3.3 Albumin/Globulin Ratio 0.7 L Attending/Attestation - Attestation I have personally seen and examined this patient.: Yes I have fully participated in the care of the patient.: Yes I have reviewed all pertinent clinical information: Yes Notes (Text): 03/19/17 13:15 attending note; Patient is a 66-year-old female with a history of 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 The patient was seen in radiation oncology department this morning. Did not start radiation yet. Patient was supposed to get palliative radiation today by Dr. Davalos. Since the patient was complaining of nausea, vomiting the patient was referred for admission. started on IV fluids. Diet as tolerated. Pain management with morphine. Hypercalcemia; continue IV fluids. Will follow up with oncology for further plan. Hospice care/palliative care was discussed with patient's daughter who is the power of district attorney in detail during last admission. Patient is DNI DNR. Prognosis is poor. palliative care consult requested. manager grocery/social studies teacher consult requested. Will continue to offer supportive care To the patient and family.
--- NOTE | 2017-03-18 19:34 | CP.PCM.HP ---
<Jake Apodaca - Last Filed: 03/18/17 19:29> History of Present Illness - History of Present Illness History of Present Illness: 66 year Female with Past medical history of Cervical Cancer Stage IV ( Metastases to liver and lungs), hypertension and diabetes presents with nausea and vomiting with abdominal pain of one day duration. Patient was sent here from her radiation oncologist, Dr. Davalos. Patient was supposed to start her radiation oncology treatment on 03/17 (day of admission), but began having second thoughts and started getting nauseas and having bouts of emesis. Patient did not have any witnessed episodes of emesis in the ER. Of note, patient's daughter states that her mother has become altered, just as she had during her last admission. Patient was recently diagnosed with a gynecological cancer and was treated here at [facility] in february for altered mental status, which was found to be secondary to hypercalcemia. Patient denies fevers, chills, chest pain, shortness of breath, frequency, urgency, and hematuria. ROS: 10 Point review of systems is negative except for history of present illness Past Surgical History: Patient denies Past Medical History: Hypertension, Diabetes, Cervical Cancer Stage IV Allergies Patient denies Social History: Patient denies alcohol, Illicits, Tobacco Hospitalizations: 02/22-02/28 for Altered Mental Status Family History: Hypertension Medications: See MAR Heme/Onc: Dr. Jarvis Present on Admission - Present on Admission Any Indicators Present on Admission: No Past Patient History - Infectious Disease Hx of Infectious Diseases: None - Past Social History Smoking Status: Never Smoked - CARDIAC Hx Cardiac Disorders: Yes (NSTEMI) Hx Hypercholesterolemia: Yes Hx Hypertension: Yes - PULMONARY Hx Respiratory Disorders: Yes (LUNG CA) - NEUROLOGICAL Hx Neurological Disorder: No - HEENT Hx HEENT Problems: No - RENAL Hx Chronic Kidney Disease: No - ENDOCRINE/METABOLIC Hx Diabetes Mellitus Type 2: Yes - HEMATOLOGICAL/ONCOLOGICAL Hx Blood Disorders: Yes Hx Cancer: Yes (COLON CA WITH METS TO LUNG,LIVER,BONE TO BEGIN RADIATION ) Hx Metastesis: Yes - INTEGUMENTARY Hx Dermatological Problems: No - MUSCULOSKELETAL/RHEUMATOLOGICAL Hx Musculoskeletal Disorders: Yes (BONE CA) Hx Falls: Yes Hx Unsteady Gait: Yes (CANE) - GASTROINTESTINAL Hx Gastrointestinal Disorders: Yes (CONSTIPATED) Other/Comment: colorectal ca , pelvic mass - GENITOURINARY/GYNECOLOGICAL Hx Genitourinary Disorders: No - PSYCHIATRIC Hx Psychophysiologic Disorder: No Hx Substance Use: No - SURGICAL HISTORY Hx Surgeries: Yes (LEFT BREAST REMOVED ABSCESS) - ANESTHESIA Hx Anesthesia: No Meds Allergies/Adverse Reactions: Allergies Allergy/AdvReac Type Severity Reaction Status Date / Time No Known Allergies Allergy Verified 03/17/17 15:44 Physical Exam - Constitutional Appears: Well, No Acute Distress, Unkempt, Chronically Ill - Head Exam Head Exam: ATRAUMATIC, NORMAL INSPECTION, NORMOCEPHALIC - Eye Exam Eye Exam: EOMI, Normal appearance, PERRL Pupil Exam: NORMAL ACCOMODATION, PERRL - ENT Exam ENT Exam: Mucous Membranes Moist, Normal Exam - Neck Exam Neck exam: Positive for: Normal Inspection - Respiratory Exam Respiratory Exam: Clear to Auscultation Bilateral, NORMAL BREATHING PATTERN - Cardiovascular Exam Cardiovascular Exam: Tachycardia, REGULAR RHYTHM, +S1, +S2. absent: Clicks, Diastolic murmur, Gallop, Irregular Rhythm, Systolic Murmur - GI/Abdominal Exam GI & Abdominal Exam: Normal Bowel Sounds, Soft. absent: Diminished Bowel Sounds , Rebound, Tenderness - Rectal Exam Rectal Exam: NORMAL INSPECTION - Exam Bimanual exam: NORMAL BIMANUAL EXAM - Extremities Exam Extremities exam: Positive for: full ROM, normal capillary refill, normal inspection. Negative for: calf tenderness - Back Exam Back exam: FULL ROM, NORMAL INSPECTION. absent: CVA tenderness (L), CVA tenderness (R) - Neurological Exam Neurological exam: Alert, CN II-XII Intact, Normal Gait, Oriented x3, Reflexes Normal - Psychiatric Exam Psychiatric exam: Normal Affect, Normal Mood - Skin Skin Exam: Dry, Intact, Normal Color, Warm Results - Vital Signs Recent Vital Signs: Last Vital Signs Temp 98 F 03/18/17 16:00 Pulse 116 H 03/18/17 16:00 Resp 20 03/18/17 16:00 BP 125/62 03/18/17 16:00 Pulse Ox 98 03/18/17 16:00 - Labs Result Diagrams: 03/18/17 09:00 03/18/17 09:00 Labs: Laboratory Results - last 24 hr 03/17/17 03/18/17 03/18/17 21:35 07:13 09:00 WBC 14.6 H RBC 3.53 Hgb 8.3 L Hct 26.7 L MCV 75.6 L MCH 23.5 L MCHC 31.1 RDW 20.4 H Plt Count 278 MPV 8.9 Gran % 83.7 H Lymph % (Auto) 7.4 L [place] % (Auto) 7.7 H Eos % (Auto) 1.0 L Baso % (Auto) 0.2 Gran # 12.22 H Lymph # 1.1 L [place] # 1.1 H Eos # 0.2 Baso # 0.03 Sodium Potassium Chloride Carbon Dioxide Anion Gap BUN Creatinine Est GFR ( Amer) Est GFR (Non-Af Amer) POC Glucose (mg/dL) 193 H 227 H Random Glucose Calcium Total Bilirubin AST ALT Alkaline Phosphatase Total Protein Albumin Globulin Albumin/Globulin Ratio 03/18/17 03/18/17 03/18/17 09:00 11:02 15:54 WBC RBC Hgb Hct MCV MCH MCHC RDW Plt Count MPV Gran % Lymph % (Auto) [place] % (Auto) Eos % (Auto) Baso % (Auto) Gran # Lymph # [place] # Eos # Baso # Sodium 137 Potassium 4.7 Chloride 104 Carbon Dioxide 23 Anion Gap 15 BUN 13 Creatinine 1.1 Est GFR ( Amer) > 60 Est GFR (Non-Af Amer) 50 POC Glucose (mg/dL) 249 H 203 H Random Glucose 215 H Calcium 10.3 Total Bilirubin 0.6 AST 124 H D ALT 57 H Alkaline Phosphatase 673 H Total Protein 6.3 Albumin 2.9 L Globulin 3.5 Albumin/Globulin Ratio 0.8 L Assessment & Plan - Assessment and Plan (Free Text) Assessment: A/P 66 year old female with past medical history of hyperlipidemia and insulin dependent diabetes presented to the ED with altered mental status and lethargy. CT Head and MRI Brain negative. Multiple metastases, Hypercalcemia. Pt fully awake alert and oriented X 4 now. Altered Mental Status likely secondary to hypercalcemia - Ca: 10.8 on admission - IV fluids Normal Saline @200 - Consider Aredia - Dr. Jarvis on consult Cervical cancer with Metastasis to Liver and Lungs - CT-Guided Liver Biopsy last admission: Squamoous Cell Carcinoma, poorly differentiated - Heme/Onc consult: Dr. Jarvis Leukocytosis, likely secondary to Neupogen - No acute intervention Hyperglycemia - ISS sliding scale medium, with accuchecks Urinary Symptoms - Urinalysis, Urine culture - Rocephin one dose Anemia - Hemoglobin stabilizing, but lower than last admission - Ferritin within normal limits, TIBC low, Iron low - Likely Anemia of Chronic Disease Trasaminitis -likely secondary to liver metastases - No acute intervention Hypercalcemia - Dr. Jarvis on consult - Consider Aredia GI/DVT prophylaxis - Protonix/Heparin <Rangasamy,Ajantha - Last Filed: 03/19/17 14:29> Results - Vital Signs Recent Vital Signs: Last Vital Signs Temp 99.6 F 03/19/17 06:00 Pulse 127 H 03/19/17 06:00 Resp 20 03/19/17 06:00 BP 122/63 03/19/17 06:00 Pulse Ox 96 03/19/17 06:00 - Labs Result Diagrams: 03/19/17 05:40 03/19/17 05:40 Labs: Laboratory Results - last 24 hr 03/18/17 03/18/17 03/19/17 15:54 21:06 05:40 WBC 15.8 H RBC 3.28 L Hgb 7.9 L Hct 24.9 L MCV 75.9 L MCH 24.1 L MCHC 31.7 RDW 20.5 H Plt Count 275 MPV 8.9 Gran % 82.3 H Lymph % (Auto) 7.6 L [place] % (Auto) 8.9 H Eos % (Auto) 1.0 L Baso % (Auto) 0.2 Gran # 13.01 H Lymph # 1.2 [place] # 1.4 H Eos # 0.2 Baso # 0.03 Sodium Potassium Chloride Carbon Dioxide Anion Gap BUN Creatinine Est GFR ( Amer) Est GFR (Non-Af Amer) POC Glucose (mg/dL) 203 H 104 Random Glucose Calcium Total Bilirubin AST ALT Alkaline Phosphatase Total Protein Albumin Globulin Albumin/Globulin Ratio 03/19/17 03/19/17 03/19/17 05:40 07:32 11:21 WBC RBC Hgb Hct MCV MCH MCHC RDW Plt Count MPV Gran % Lymph % (Auto) [place] % (Auto) Eos % (Auto) Baso % (Auto) Gran # Lymph # [place] # Eos # Baso # Sodium 138 Potassium 4.4 Chloride 109 H Carbon Dioxide 20 L Anion Gap 14 BUN 12 Creatinine 1.0 Est GFR ( Amer) > 60 Est GFR (Non-Af Amer) 56 POC Glucose (mg/dL) 142 H 270 H Random Glucose 144 H Calcium 10.4 Total Bilirubin 0.7 AST 123 H ALT 51 Alkaline Phosphatase 644 H Total Protein 5.8 Albumin 2.5 L Globulin 3.3 Albumin/Globulin Ratio 0.7 L Attending/Attestation - Attestation I have personally seen and examined this patient.: Yes I have fully participated in the care of the patient.: Yes I have reviewed all pertinent clinical information: Yes Notes (Text): 03/19/17 14:29 Abbreviations corrected in this note. 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 The patient was seen in radiation oncology department this morning. Did not start radiation yet. Patient was supposed to get palliative radiation today by Dr. Davalos. Since the patient was complaining of nausea, vomiting the patient was referred for admission. started on IV fluids. Diet as tolerated. Pain management with morphine. Hypercalcemia; continue IV fluids. Will follow up with oncology for further plan. Hospice care/palliative care was discussed with patient's daughter who is the power of district attorney in detail during last admission. Patient is DNI DNR. Prognosis is poor. palliative care consult requested. manager card/socially responsible investment adviser consult requested. Will continue to offer supportive care To the patient and family.
--- NOTE | 2017-03-19 00:35 | CON ---
DATE: 03/18/2017 REASON FOR CONSULT: Known stage IV cervical carcinoma with metastatic disease to the liver as well as lung. HISTORY OF PRESENT ILLNESS: The patient is a 66-year-old female who presented to the emergency room approximately 2 weeks ago with a large pelvic mass eroding into the cervix as well as the rectum, had a biopsy done at that point, which was positive for poorly-differentiated squamous cell carcinoma primary as likely cervical in origin. She also was admitted with hypercalcemia, at that time was hydrated and pamidronate was given and her symptom improved. The patient was followed up as an outpatient last week and setup for radiation, but unfortunately when she presented to radiation, she was weak as well as had nausea and vomiting and in general poor health and therefore was transferred to the emergency room for further evaluation. She is currently refusing all treatment as per the family as well as the patient. She does have abdominal discomfort. She has lost more weight. She has not been able to keep anything down secondary to the nausea, vomiting and once again her calcium level was elevated and she is markedly dehydrated. PAST MEDICAL HISTORY: As above. Known history of newly diagnosed stage IV cervical cancer, known cardiac history, hypertension, and type 2 diabetes. SOCIAL HISTORY: Noncontributory. She is not a smoker. No alcohol use. No drug use. FAMILY HISTORY: Noncontributory. REVIEW OF SYSTEMS: As per the HPI including weight loss, nausea, vomiting, and pelvic pain. PHYSICAL EXAMINATION: VITAL SIGNS: Reveal temperature of 98.8, pulse of 122, respiratory rate of 20, and blood pressure of 117/55. GENERAL: The patient is an elderly female appearing older than her stated age, in no acute distress. HEENT: Head and neck; normocephalic and atraumatic. Eyes; pupils are equal, round, reactive to light and accommodation. Extraocular muscles are intact. There is some pallor. No icterus is noted. Neck is supple with no adenopathy. No JVD. No thyromegaly. LUNGS: Decreased breath sounds bilaterally secondary to poor effort. CARDIOVASCULAR: S1 and S2 is heard. ABDOMEN: Positive bowel sounds, soft, nontender, and nondistended. No organomegaly is palpated. Large eroding masses noted by the sacral area. LABORATORY DATA: Her white count of 14.6, hemoglobin 8.3, hematocrit 26.7, MCV of 75.6 and a platelet count 278. White count diff is left . Her chemistries are within normal limits except for markedly elevated alkaline phosphatase of 673 and AST and ALT are also elevated. ASSESSMENT AND PLAN: An elderly female with widely metastatic squamous cell carcinoma likely arising from the cervix. The patient has no prior medical care and now has stage IV disease. The patient and family have been refusing chemotherapy as she has a very poor performance status. She was prefer to radiation therapy for evaluation for palliative radiation for pain management, but the patient is also currently refusing that and they only want comfort measures. We will get palliative care the patient follow up with them. Thank you for the consult. We will follow. Kylah Jarvis MD
[2017-03-19] MEDS: Pantoprazole 40 mg EC Tab PO SCH (06:06)
[2017-03-19 06:22] LABS: BASO # 0.03 K/mm3 (0.0-2.0); BASO % 0.2 % (0.0-3.0); EOS # 0.2 (0.0-0.7); GRAN # 13.01 (1.4-6.5); GRAN % 82.3 % (50.0-68.0); HEMATOCRIT 24.9 % (36.0-48.0); LYMPH # 1.2 (1.2-3.4); LYMPH % 7.6 % (22.0-35.0); MEAN CELL VOLUME 75.9 fl (80.0-105.0); MEAN CORPUSCULAR HEMOGLOBIN 24.1 pg (25.0-35.0); MEAN CORPUSCULAR HGB CONC 31.7 g/dl (31.0-37.0); MEAN PLATELET VOLUME 8.9 fl (7.0-11.0); MONO # 1.4 (0.1-0.6); MONO % 8.9 % (1.0-6.0); RED CELL DISTRIBUTION WIDTH 20.5 % (11.5-14.5); WHITE BLOOD COUNT 15.8 10^3/ul (4.5-11.0)
[2017-03-19 06:49] LABS: ALB/GLOB RATIO 0.7 (1.1-1.8); ALKALINE PHOSPHATASE 644 U/L (38-126); ALT/SGPT 51 U/L (7-56); AST/SGOT 123 U/L (14-36); BILIRUBIN,TOTAL 0.7 mg/dL (0.2-1.3); BLOOD UREA NITROGEN 12 mg/dL (7-21); CALCIUM 10.4 mg/dL (8.4-10.5); CARBON DIOXIDE 20 mmol/L (21-33); CHLORIDE 109 mmol/L (98-107); GFR AFRICAN-AMERICAN > 60; GLUCOSE,RANDOM 144 mg/dL (70-110); POTASSIUM 4.4 mmol/L (3.6-5.0); SODIUM 138 mmol/L (132-148); TOTAL PROTEIN 5.8 g/dL (5.8-8.3)
[2017-03-19] MEDS: Insulin Reg-MEDIUM-Coverage SC SCH ×4 (08:35→22:00)
[2017-03-19] MEDS: Enoxaparin 40 mg Syringe SC SCH (09:10)
[2017-03-19] MEDS: POLYETHYLENE GLYCOL 3350 17 GM/Dose PACKET PO SCH (09:10)
[2017-03-19] MEDS: cefTRIAXone 1 gm 1 GM/100 ML BAG IVPB SCH (09:15)
[2017-03-19] MEDS ORDERED: Sodium Chloride 0.9% 1,000 ML IV SCH (10:01)
--- NOTE | 2017-03-19 11:40 | CP.PCM.DIS ---
Provider - Provider Date of Admission: 03/17/17 12:45 Attending physician: Yg Salguero MD Hospital Course - Lab Results Lab Results: Most Recent Lab Values WBC 15.8 10^3/ul (4.5-11.0) H 03/19/17 05:40 RBC 3.28 10^6/uL (3.5-6.1) L 03/19/17 05:40 Hgb 7.9 g/dL (12.0-16.0) L 03/19/17 05:40 Hct 24.9 % (36.0-48.0) L 03/19/17 05:40 MCV 75.9 fl (80.0-105.0) L 03/19/17 05:40 MCH 24.1 pg (25.0-35.0) L 03/19/17 05:40 MCHC 31.7 g/dl (31.0-37.0) 03/19/17 05:40 RDW 20.5 % (11.5-14.5) H 03/19/17 05:40 Plt Count 275 10^3/uL (120.0-450.0) 03/19/17 05:40 MPV 8.9 fl (7.0-11.0) 03/19/17 05:40 Gran % 82.3 % (50.0-68.0) H 03/19/17 05:40 Lymph % (Auto) 7.6 % (22.0-35.0) L 03/19/17 05:40 [place] % (Auto) 8.9 % (1.0-6.0) H 03/19/17 05:40 Eos % (Auto) 1.0 % (1.5-5.0) L 03/19/17 05:40 Baso % (Auto) 0.2 % (0.0-3.0) 03/19/17 05:40 Gran # 13.01 (1.4-6.5) H 03/19/17 05:40 Lymph # 1.2 (1.2-3.4) 03/19/17 05:40 [place] # 1.4 (0.1-0.6) H 03/19/17 05:40 Eos # 0.2 (0.0-0.7) 03/19/17 05:40 Baso # 0.03 K/mm3 (0.0-2.0) 03/19/17 05:40 Sodium 138 mmol/L (132-148) 03/19/17 05:40 Potassium 4.4 mmol/L (3.6-5.0) 03/19/17 05:40 Chloride 109 mmol/L (98-107) H 03/19/17 05:40 Carbon Dioxide 20 mmol/L (21-33) L 03/19/17 05:40 Anion Gap 14 (10-20) 03/19/17 05:40 BUN 12 mg/dL (7-21) 03/19/17 05:40 Creatinine 1.0 mg/dl (0.7-1.2) 03/19/17 05:40 Est GFR ( Amer) > 60 03/19/17 05:40 Est GFR (Non-Af Amer) 56 03/19/17 05:40 POC Glucose (mg/dL) 270 mg/dL (65-110) H 03/19/17 11:21 Random Glucose 144 mg/dL (70-110) H 03/19/17 05:40 Calcium 10.4 mg/dL (8.4-10.5) 03/19/17 05:40 Total Bilirubin 0.7 mg/dL (0.2-1.3) 03/19/17 05:40 AST 123 U/L (14-36) H 03/19/17 05:40 ALT 51 U/L (7-56) 03/19/17 05:40 Alkaline Phosphatase 644 U/L (38-126) H 03/19/17 05:40 Total Protein 5.8 g/dL (5.8-8.3) 03/19/17 05:40 Albumin 2.5 g/dL (3.0-4.8) L 03/19/17 05:40 Globulin 3.3 gm/dL 03/19/17 05:40 Albumin/Globulin Ratio 0.7 (1.1-1.8) L 03/19/17 05:40 Lipase 547 U/L (23-300) H 03/17/17 11:45 Discharge Exam - Head Exam Head Exam: ATRAUMATIC, NORMAL INSPECTION, NORMOCEPHALIC Discharge Plan - Discharge Medications Prescriptions: Polyethylene Glycol 3350 [Miralax] 17 gm PO DAILY #30 packet - Follow Up Plan Condition: SERIOUS Disposition: HOME/ ROUTINE Instructions: Cervical Cancer (DC), Palliative Care (DC)
[2017-03-19] MEDS ORDERED: Oxycodone/Acetaminophen 5/325 mg Tab PO PRN (16:06)
--- NOTE | 2017-03-19 18:24 | CP.PCM.PN ---
<Jake Apodaca Lucien - Last Filed: 03/19/17 18:15> Subjective - Date & Time of Evaluation Date of Evaluation: 03/19/17 Time of Evaluation: 18:16 - Subjective Subjective: Medicine Progress Note - Jake Apodaca DO, Machine Repairman Patient was seen and examined at bedside. Patient denies any complaints at this time. Per nursing and social work, patient is set to go to inpatient hospice care at [facility] tomorrow. Patient denies current pain, nausea, vomiting, chest pain, shortness of breath, fevers and chills. Objective - Vital Signs/Intake and Output Vital Signs (last 24 hours): Temp Pulse Resp BP Pulse Ox 99.6 F 127 H 20 122/63 96 03/19/17 06:00 03/19/17 06:00 03/19/17 06:00 03/19/17 06:00 03/19/17 06:00 Intake and Output: 03/19/17 03/19/17 06:59 18:59 Intake Total 120 520 Balance 120 520 - Medications Medications: Current Medications Enoxaparin Sodium (Lovenox) 40 mg SC DAILY [facility] PRN Reason: Protocol Last Admin: 03/19/17 09:10 Dose: 40 mg Insulin Human Regular (Humulin R Med) 0 units SC ACHS [facility] PRN Reason: Protocol Last Admin: 03/19/17 17:19 Dose: Not Given Ondansetron HCl (Zofran Inj) 4 mg IVP Q6H PRN PRN Reason: nausea Ondansetron HCl (Zofran Tab) 4 mg PO Q8H PRN PRN Reason: Nausea/Vomiting Oxycodone/Acetaminophen (Percocet 5/325 Mg Tab) 1 tab PO Q4H PRN PRN Reason: Pain, moderate (4-7) Stop: 03/22/17 16:07 Pantoprazole Sodium (Protonix Ec Tab) 40 mg PO 0600 [facility] Last Admin: 03/19/17 06:06 Dose: 40 mg Polyethylene Glycol (Miralax) 17 gm PO DAILY [facility] Last Admin: 03/19/17 09:10 Dose: 17 gm - Labs Labs: 03/19/17 05:40 03/19/17 05:40 - Constitutional Appears: Well - Head Exam Head Exam: ATRAUMATIC, NORMAL INSPECTION, NORMOCEPHALIC - Eye Exam Eye Exam: EOMI, Normal appearance, PERRL Pupil Exam: NORMAL ACCOMODATION, PERRL - ENT Exam ENT Exam: Mucous Membranes Moist, Normal Exam - Neck Exam Neck Exam: Full ROM, Normal Inspection. absent: Lymphadenopathy - Respiratory Exam Respiratory Exam: Clear to Ausculation Bilateral, NORMAL BREATHING PATTERN - Cardiovascular Exam Cardiovascular Exam: REGULAR RHYTHM, +S1, +S2. absent: Murmur - GI/Abdominal Exam GI & Abdominal Exam: Soft, Normal Bowel Sounds. absent: Tenderness - Rectal Exam Rectal Exam: NORMAL INSPECTION - Extremities Exam Extremities Exam: Full ROM, Normal Capillary Refill, Normal Inspection. absent : Joint Swelling, Pedal Edema - Back Exam Back Exam: NORMAL INSPECTION - Neurological Exam Neurological Exam: Alert, Awake, CN II-XII Intact, Normal Gait, Oriented x3 - Psychiatric Exam Psychiatric exam: Normal Affect, Normal Mood - Skin Skin Exam: Dry, Intact, Normal Color, Warm Assessment and Plan - Assessment and Plan (Free Text) Assessment: A/P 66 year old female with past medical history of hyperlipidemia and insulin dependent diabetes presented to the ED with altered mental status and lethargy. CT Head and MRI Brain negative. Multiple Metastases, Hypercalcemia. Pt fully AAOX4 now. Altered Mental Status likely secondary to hypercalcemia - Ca: 10.8 on admission, 10.3 yesterday, 10.4 today - IV fluids Normal Saline @200 - Aredia 60 given Cervical Cancer with Metastasis to Liver and Lungs - CT-Guided Liver Biopsy last admission: Squamous Cell Carcinoma, poorly differentiated - Heme/Onc: Dr. Jarvis *Patient agreed to palliative radiation oncology Leukocytosis, likely secondary to Neupogen - No acute intervention Hyperglycemia - ISS sliding scale medium, with accuchecks Urinary Symptoms - Urinalysis, Urine Culture, Blood culture *Blood culture shows no growth after 48 hours - Rocephin one dose Anemia - Hemoglobin stabilizing, but fell to 7.9 today - likely secondary to fluid dilution - Likely Anemia of Chronic disease Trasaminitis -likely secondary to liver mets - No acute intervention Hypercalcemia - Dr. Jarvis on consult - Aredia 60 given GI/DVT prophylaxis - Protonix/Heparin Dispo: Patient headed to [facility] tomorrow for inpatient hospice care <Yg Salguero - Last Filed: 03/20/17 07:52> Objective - Vital Signs/Intake and Output Vital Signs (last 24 hours): Temp Pulse Resp BP Pulse Ox 98.9 F 118 H 19 126/69 99 03/19/17 16:00 03/19/17 16:00 03/19/17 16:00 03/19/17 16:00 03/19/17 16:00 Intake and Output: 03/20/17 03/20/17 06:59 18:59 Intake Total 300 Balance 300 - Medications Medications: Current Medications Enoxaparin Sodium (Lovenox) 40 mg SC DAILY [facility] PRN Reason: Protocol Last Admin: 03/19/17 09:10 Dose: 40 mg Insulin Human Regular (Humulin R Med) 0 units SC ACHS [facility] PRN Reason: Protocol Last Admin: 03/19/17 22:00 Dose: Not Given Ondansetron HCl (Zofran Inj) 4 mg IVP Q6H PRN PRN Reason: nausea Ondansetron HCl (Zofran Tab) 4 mg PO Q8H PRN PRN Reason: Nausea/Vomiting Oxycodone/Acetaminophen (Percocet 5/325 Mg Tab) 1 tab PO Q4H PRN PRN Reason: Pain, moderate (4-7) Stop: 03/22/17 16:07 Pantoprazole Sodium (Protonix Ec Tab) 40 mg PO 0600 [facility] Last Admin: 03/20/17 05:56 Dose: 40 mg Polyethylene Glycol (Miralax) 17 gm PO DAILY [facility] Last Admin: 03/19/17 09:10 Dose: 17 gm - Labs Labs: 03/19/17 05:40 03/19/17 05:40 Attending/Attestation - Attestation I have personally seen and examined this patient.: Yes I have fully participated in the care of the patient.: Yes I have reviewed all pertinent clinical information, including history, physical exam and plan: Yes Notes (Text): 03/20/17 07:47 attending note; Patient is a 66-year-old female with a history of 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 Treated with IV fluids. Treated with IV aredia. Hypercalcemia; improving. Oncology evaluation with appreciated. Hospice care/palliative care was discussed with patient's daughter who is the power of sports attorney in detail during last admission. Patient is DNI DNR. crime prevention worker is assisting in discharging the patient. Medicaid is pending. Possible inpatient versus home hospice is considered. Pending hospice care evaluation and placement. Patient was evaluated by palliative care nurse. The diagnosis and prognosis discussed with daughter in detail. Currently patient and family agreed for hospice care/comfort care only.
[2017-03-20] MEDS: Pantoprazole 40 mg EC Tab PO SCH (05:56)
[2017-03-20] MEDS: Insulin Reg-MEDIUM-Coverage SC SCH ×3 (08:03→17:30)
[2017-03-20] MEDS: Enoxaparin 40 mg Syringe SC SCH (09:38)
[2017-03-20] MEDS: POLYETHYLENE GLYCOL 3350 17 GM/Dose PACKET PO SCH (09:39)
[2017-03-20 09:54] VITALS: BP 137/72; PULSE 126; RESP 20; TEMP 99.1; O2SAT 97
--- NOTE | 2017-03-20 13:50 | CP.PCM.DIS ---
<Jake Apodaca - Last Filed: 03/20/17 15:54> Provider - Provider Date of Admission: 03/17/17 12:45 Attending physician: Yg Salguero MD Consults: Hospice care - Una Waldrop/Onc - Dr. Jarvis Time Spent in preparation of Discharge (in minutes): 40 Hospital Course - Lab Results Lab Results: Most Recent Lab Values WBC 15.8 10^3/ul (4.5-11.0) H 03/19/17 05:40 RBC 3.28 10^6/uL (3.5-6.1) L 03/19/17 05:40 Hgb 7.9 g/dL (12.0-16.0) L 03/19/17 05:40 Hct 24.9 % (36.0-48.0) L 03/19/17 05:40 MCV 75.9 fl (80.0-105.0) L 03/19/17 05:40 MCH 24.1 pg (25.0-35.0) L 03/19/17 05:40 MCHC 31.7 g/dl (31.0-37.0) 03/19/17 05:40 RDW 20.5 % (11.5-14.5) H 03/19/17 05:40 Plt Count 275 10^3/uL (120.0-450.0) 03/19/17 05:40 MPV 8.9 fl (7.0-11.0) 03/19/17 05:40 Gran % 82.3 % (50.0-68.0) H 03/19/17 05:40 Lymph % (Auto) 7.6 % (22.0-35.0) L 03/19/17 05:40 [place] % (Auto) 8.9 % (1.0-6.0) H 03/19/17 05:40 Eos % (Auto) 1.0 % (1.5-5.0) L 03/19/17 05:40 Baso % (Auto) 0.2 % (0.0-3.0) 03/19/17 05:40 Gran # 13.01 (1.4-6.5) H 03/19/17 05:40 Lymph # 1.2 (1.2-3.4) 03/19/17 05:40 [place] # 1.4 (0.1-0.6) H 03/19/17 05:40 Eos # 0.2 (0.0-0.7) 03/19/17 05:40 Baso # 0.03 K/mm3 (0.0-2.0) 03/19/17 05:40 Sodium 138 mmol/L (132-148) 03/19/17 05:40 Potassium 4.4 mmol/L (3.6-5.0) 03/19/17 05:40 Chloride 109 mmol/L (98-107) H 03/19/17 05:40 Carbon Dioxide 20 mmol/L (21-33) L 03/19/17 05:40 Anion Gap 14 (10-20) 03/19/17 05:40 BUN 12 mg/dL (7-21) 03/19/17 05:40 Creatinine 1.0 mg/dl (0.7-1.2) 03/19/17 05:40 Est GFR ( Amer) > 60 03/19/17 05:40 Est GFR (Non-Af Amer) 56 03/19/17 05:40 POC Glucose (mg/dL) 269 mg/dL (65-110) H 03/20/17 12:02 Random Glucose 144 mg/dL (70-110) H 03/19/17 05:40 Calcium 10.4 mg/dL (8.4-10.5) 03/19/17 05:40 Total Bilirubin 0.7 mg/dL (0.2-1.3) 03/19/17 05:40 AST 123 U/L (14-36) H 03/19/17 05:40 ALT 51 U/L (7-56) 03/19/17 05:40 Alkaline Phosphatase 644 U/L (38-126) H 03/19/17 05:40 Total Protein 5.8 g/dL (5.8-8.3) 03/19/17 05:40 Albumin 2.5 g/dL (3.0-4.8) L 03/19/17 05:40 Globulin 3.3 gm/dL 03/19/17 05:40 Albumin/Globulin Ratio 0.7 (1.1-1.8) L 03/19/17 05:40 Lipase 547 U/L (23-300) H 03/17/17 11:45 - Hospital Course Hospital Course: 66 year Female with Past medical history of Cervical Cancer Stage IV ( Metastases to liver and lungs), hypertension and diabetes presented with nausea and vomiting with abdominal pain of one day duration. Patient was sent here from her radiation oncologist, Dr. Davalos. Patient was supposed to start her radiation oncology treatment on 03/17 (day of admission), but began having second thoughts and started getting nauseas and having bouts of emesis. Patient did not have any witnessed episodes of emesis in the ER. Of note, patient's daughter stated that her mother had become altered, just as she had during her last admission. Patient was recently diagnosed with a gynecological cancer and was treated here at [facility] february for altered mental status, which was found to be secondary to hypercalcemia. While at the hospital, she had the following imaging or studies performed: EKG: Sinus tachy with age undetermined septal infarct. Patient met with Hospice care and Dr. Jarvis while here, and they determined that the best treatment for her would be palliative care and palliative radiation oncology. Patient was placed at [facility] for inpatient hospice care. Patient considered terminal but stable for discharge to inpatient hospice. Diagnoses: 66 year old female with past medical history of hyperlipidemia and insulin dependent diabetes presented to the ED with altered mental status and lethargy. CT Head and MRI Brain negative. Multiple metastases, Hypercalcemia. Pt fully awake alert and oriented X 4 now. Altered Mental Status likely secondary to hypercalcemia - Ca: 10.8 on admission - IV fluids Normal Saline @200 - Consider Aredia - Dr. Jarvis on consult Cervical cancer with Metastasis to Liver and Lungs - CT-Guided Liver Biopsy last admission: Squamoous Cell Carcinoma, poorly differentiated - Heme/Onc consult: Dr. Jarvis Leukocytosis, likely secondary to Neupogen - No acute intervention Hyperglycemia - ISS sliding scale medium, with accuchecks Urinary Symptoms - Urinalysis, Urine culture - Rocephin one dose Anemia - Hemoglobin stabilizing, but lower than last admission - Ferritin within normal limits, TIBC low, Iron low - Likely Anemia of Chronic Disease Trasaminitis -likely secondary to liver metastases - No acute intervention Hypercalcemia - Dr. Jarvis on consult - Consider Aredia GI/DVT prophylaxis - Protonix/Heparin Discharge Exam - Head Exam Head Exam: ATRAUMATIC, NORMAL INSPECTION, NORMOCEPHALIC - Eye Exam Eye Exam: EOMI, Normal appearance, PERRL Pupil Exam: NORMAL ACCOMODATION, PERRL - ENT Exam ENT Exam: Mucous Membranes Moist, Normal Exam, Normal External Ear Exam - Neck Exam Neck exam: Full Rom, Normal Inspection - Respiratory Exam Respiratory Exam: Clear to PA & Lateral, NORMAL BREATHING PATTERN, UNREMARKABLE - Cardiovascular Exam Cardiovascular Exam: Tachycardia, REGULAR RHYTHM, +S1, +S2. absent: Gallop, Irregular Rhythm, JVD - GI/Abdominal Exam GI & Abdominal Exam: Normal Bowel Sounds, Soft, Unremarkable. absent: Tenderness - Rectal Exam Rectal Exam: NORMAL INSPECTION - Extremities Exam Extremities exam: full ROM, normal inspection, pedal pulses present - Back Exam Back exam: FULL ROM, NORMAL INSPECTION. absent: CVA tenderness (L), CVA tenderness (R) - Neurological Exam Neurological exam: Alert, CN II-XII Intact, Normal Gait, Oriented x3, Reflexes Normal - Psychiatric Exam Psychiatric exam: Normal Affect, Normal Mood - Skin Skin Exam: Dry, Intact, Normal Color, Warm Discharge Plan - Discharge Medications Prescriptions: Ondansetron [Zofran] 4 mg PO Q6 #10 tab oxyCODONE/Acetaminophen [Percocet 5/325 mg Tab] 1 ea PO Q4 #30 tab Pantoprazole [Protonix] 40 mg PO DAILY #10 ect Polyethylene Glycol 3350 [Miralax] 17 gm PO DAILY #30 packet - Follow Up Plan Condition: SERIOUS Disposition: HOME/ ROUTINE Instructions: Cardioversion (DC), Palliative Care (DC), Cervical Cancer (DC) Additional Instructions: Patient may return to ED if experiencing shortness of breath, chest pain, dizziness, nausea/vomiting, and/or unrelenting pain. <Yg Salguero - Last Filed: 03/20/17 16:20> Provider - Provider Date of Admission: 03/17/17 12:45 Attending physician: Yg Salguero MD Hospital Course - Lab Results Lab Results: Most Recent Lab Values WBC 15.8 10^3/ul (4.5-11.0) H 03/19/17 05:40 RBC 3.28 10^6/uL (3.5-6.1) L 03/19/17 05:40 Hgb 7.9 g/dL (12.0-16.0) L 03/19/17 05:40 Hct 24.9 % (36.0-48.0) L 03/19/17 05:40 MCV 75.9 fl (80.0-105.0) L 03/19/17 05:40 MCH 24.1 pg (25.0-35.0) L 03/19/17 05:40 MCHC 31.7 g/dl (31.0-37.0) 03/19/17 05:40 RDW 20.5 % (11.5-14.5) H 03/19/17 05:40 Plt Count 275 10^3/uL (120.0-450.0) 03/19/17 05:40 MPV 8.9 fl (7.0-11.0) 03/19/17 05:40 Gran % 82.3 % (50.0-68.0) H 03/19/17 05:40 Lymph % (Auto) 7.6 % (22.0-35.0) L 03/19/17 05:40 [place] % (Auto) 8.9 % (1.0-6.0) H 03/19/17 05:40 Eos % (Auto) 1.0 % (1.5-5.0) L 03/19/17 05:40 Baso % (Auto) 0.2 % (0.0-3.0) 03/19/17 05:40 Gran # 13.01 (1.4-6.5) H 03/19/17 05:40 Lymph # 1.2 (1.2-3.4) 03/19/17 05:40 [place] # 1.4 (0.1-0.6) H 03/19/17 05:40 Eos # 0.2 (0.0-0.7) 03/19/17 05:40 Baso # 0.03 K/mm3 (0.0-2.0) 03/19/17 05:40 Sodium 138 mmol/L (132-148) 03/19/17 05:40 Potassium 4.4 mmol/L (3.6-5.0) 03/19/17 05:40 Chloride 109 mmol/L (98-107) H 03/19/17 05:40 Carbon Dioxide 20 mmol/L (21-33) L 03/19/17 05:40 Anion Gap 14 (10-20) 03/19/17 05:40 BUN 12 mg/dL (7-21) 03/19/17 05:40 Creatinine 1.0 mg/dl (0.7-1.2) 03/19/17 05:40 Est GFR ( Amer) > 60 03/19/17 05:40 Est GFR (Non-Af Amer) 56 03/19/17 05:40 POC Glucose (mg/dL) 269 mg/dL (65-110) H 03/20/17 12:02 Random Glucose 144 mg/dL (70-110) H 03/19/17 05:40 Calcium 10.4 mg/dL (8.4-10.5) 03/19/17 05:40 Total Bilirubin 0.7 mg/dL (0.2-1.3) 03/19/17 05:40 AST 123 U/L (14-36) H 03/19/17 05:40 ALT 51 U/L (7-56) 03/19/17 05:40 Alkaline Phosphatase 644 U/L (38-126) H 03/19/17 05:40 Total Protein 5.8 g/dL (5.8-8.3) 03/19/17 05:40 Albumin 2.5 g/dL (3.0-4.8) L 03/19/17 05:40 Globulin 3.3 gm/dL 03/19/17 05:40 Albumin/Globulin Ratio 0.7 (1.1-1.8) L 03/19/17 05:40 Lipase 547 U/L (23-300) H 03/17/17 11:45 Attending/Attestation - Attestation I have personally seen and examined this patient.: Yes I have fully participated in the care of the patient.: Yes I have reviewed all pertinent clinical information, including history, physical exam and plan: Yes Notes (Text): 03/20/17 16:16 attending note; Patient is a 66-year-old female with a history of 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 Treated with IV fluids. Treated with IV aredia. Hypercalcemia; improving. Oncology evaluation with appreciated. Hospice care/palliative care was discussed with patient's daughter who is the power of civil rights attorney in detail during last admission. Patient is DNI DNR. patient and family agreed for hospice care. patient will be transferred to hosp[facility] at [facility] today. diagnosis; Metastatic squamous cell carcinoma Possible cervical origin hospice care 03/20/17 16:19
== END 2017-03-20 18:55 | disposition hospice, inpatient (51) | DRG 296 ==
LOC: ED 11:30 → ERH 12:45 → 3RNO 14:57
PROVIDERS: ADMIT Internal Medicine; ATTEND Internal Medicine
DX: E83.52 Hypercalcemia (principal); C78.00 Secondary malignant neoplasm of unspecified lung; C78.7 Secondary malignant neoplasm of liver and intrahepatic bile duct; E11.65 Type 2 diabetes mellitus with hyperglycemia; C53.9 Malignant neoplasm of cervix uteri, unspecified; D63.8 Anemia in other chronic diseases classified elsewhere; N13.30 Unspecified hydronephrosis; E86.0 Dehydration; E78.5 Hyperlipidemia, unspecified; D72.829 Elevated white blood cell count, unspecified; T45.8X5A Adverse effect of other primarily systemic and hematological agents, initial encounter; I10 Essential (primary) hypertension; R11.2 Nausea with vomiting, unspecified; Z66 Do not resuscitate; Z51.5 Encounter for palliative care; Z79.4 Long term (current) use of insulin